=== PATIENT | female | born 1970 | race Caucasian/White ===

== ENCOUNTER 2023-10-31 08:35 | Emergency (ER) | payer MEDICAID, SELFPAY ==
[2023-10-31 08:39] VITALS: BP 158/86; PULSE 126; TEMP 36.8; O2SAT 95; BMI 26.5
[2023-10-31 09:00] LABS: Basophils Absolute Auto 0.1 10^3/uL (0.0-0.1); Basophils Percent Auto 1.3 % (0.2-2.0); Eosinophils Absolute Auto 0.2 10^3/uL (0.0-0.7); Eosinophils Percent Auto 2.7 % (0.9-7.0); Hematocrit 42.1 % (36.0-48.0); Hemoglobin 14.1 g/dL (12.0-16.0); Immature Granulocytes Abs Auto 0.03 10^3/uL (0.00-0.03); Immature Granulocytes Pct Auto 0.4 % (0.0-0.5); Lymphocytes Absolute Auto 1.8 10^3/uL (1.2-3.8); Lymphocytes Percent Auto 24.1 % (20.5-60.0); Mean Corpuscular HGB Conc 33.5 g/dL (29.9-35.2); Mean Corpuscular Volume 101.4 fL (81.0-99.0); Mean Platelet Volume 10.6 fL (9.5-13.5); Monocytes Percent Auto 13.4 % (1.7-12.0); Neutrophils Absolute Auto 4.4 10^3/uL (1.4-6.5); Neutrophils Percent Auto 58.1 % (43.0-75.0); Platelet Count 329 10^3/uL (150-450); Red Blood Count 4.15 10^6/uL (4.20-5.40); Red Cell Distribution Width 12.9 % (11.0-15.0); White Blood Count 7.5 10^3/uL (4.0-11.0)
[2023-10-31 09:01] LABS: Bilirubin Urine NEGATIVE (NEGATIVE); Blood Urine MODERATE (NEGATIVE); Color Urine LT. YELLOW (YELLOW); Glucose Urine UA NEGATIVE (NEGATIVE); Ketones Urine NEGATIVE (NEGATIVE); Leukocyte Esterase Urine LARGE (NEGATIVE); Nitrite Urine NEGATIVE (NEGATIVE); Protein Urine 30 mg/dL (NEG/TRACE); Specific Gravity Urine >=1.030 (1.005-1.025); Urobilinogen Urine 0.2 EU/dL (0.2-1.0)
[2023-10-31 09:02] LABS: Clarity Urine CLOUDY (CLEAR)
[2023-10-31 09:03] LABS: Urine Microscopic Indicated YES
[2023-10-31 09:08] LABS: WBC Urine >100 #/HPF (NONE SEEN)
[2023-10-31 09:09] LABS: Bacteria Urine MODERATE #/HPF (NONE SEEN); Mucus Urine NONE SEEN (NONE SEEN); Squamous Epithelial Cell Urine FEW #/LPF (NONE/RARE)
[2023-10-31 09:10] LABS: Urine Culture Indicated YES
[2023-10-31 09:19] LABS: Alanine Aminotransferase 38 U/L (14-59); Albumin Level 3.9 g/dL (3.4-5.0); Alkaline Phosphatase 124 U/L (46-116); Anion Gap 15.4; Aspartate Amino Transferase 26 U/L (15-37); Bilirubin Total 0.5 mg/dL (0.2-1.0); Carbon Dioxide 25.5 mmol/L (21.0-32.0); Chloride 104 mmol/L (98-107); Estimated GFR (African America >60 (>=60); Estimated GFR (Non-African Ame >60 (>=60); Globulin 3.8 g/dL; Glucose 100 mg/dL (74-106); Potassium 3.9 mmol/L (3.5-5.1); Sodium 141 mmol/L (136-145); Total Protein 7.7 g/dL (6.4-8.2)
--- NOTE | 2023-10-31 09:25 | ED.ABDPAIN1 ---
HPI - Abdominal Pain General Chief Complaint: Abdominal Pain Stated Complaint: PELVIC PAIN/BACK PAIN Time Seen by Provider: 10/31/23 09:16 Source: patient Mode of arrival: walk-in Limitations: no limitations History of Present Illness HPI narrative: This patient is here complaining of abdominal pain and severe dysuria. She says she is now on her second antibiotic, the second 1 that she is taking currently is ciprofloxacin. She does not remember the name of the first 1. She said the family practice clinic in [place] diagnosed her as having a urinary tract infection. She does not know the results of her culture. She was placed on Pyridium and did have some temporary relief of the severe discomfort with urinating but now its back. She also has some back and flank pain. She has not had rigors she has not had vomiting. She has not had previous kidney stones or pyelonephritis. She said this is really the first time that she has had a urinary infection in quite some time and it just is not getting any better. She has not had an appendectomy. Most the discomfort is in the suprapubic area. She gets yearly gynecological exams and has no history of cystocele or rectocele but she says now it feels like her bladder may be falling out because she can feel it move. She has had 5 children. Related Data Home Medications ?Medication ?Instructions ?Recorded ?Confirmed aripiprazole 5 mg tablet 5 mg PO DAILY 10/31/23 10/31/23 buspirone 30 mg tablet 30 mg PO BID 10/31/23 10/31/23 cyanocobalamin (vitamin B-12) 500 500 mcg PO DAILY 10/31/23 10/31/23 mcg tablet fluticasone propionate 50 1 spray intranasal Q12H 10/31/23 10/31/23 mcg/actuation nasal spray,suspension hydroxyzine pamoate 50 mg capsule 50 mg PO BID 10/31/23 10/31/23 Allergies Allergy/AdvReac Type Severity Reaction Status Date / Time sulfamethoxazole Allergy Severe Hives Verified 10/31/23 08:47 [From Bactrim] trimethoprim [From Bactrim] Allergy Severe Hives Verified 10/31/23 08:47 Exam Narrative Exam Narrative: Well-hydrated well-nourished female appears to be uncomfortable. Examining her back she has a negative Dav sign. There is no other skin findings noted on her back area. In the lying position there is no peritoneal findings guarding rebound or rigidity. No tenderness at McBurney's point. She does have some discomfort palpation over the bladder but is not distended. There is no hepatosplenomegaly. The skin and integument are normal with no petechia purpura rash or exanthem. Constitutional Vital Signs, click to edit/add: Last Vital Signs Temp 98.2 F 10/31/23 08:39 Pulse 73 10/31/23 10:04 Resp 18 10/31/23 10:04 BP 102/64 10/31/23 10:04 Pulse Ox 98 10/31/23 10:04 O2 Del Method Room Air 10/31/23 10:04 Course Vital Signs Vital signs: Vital Signs Temperature 98.2 F 10/31/23 08:39 Pulse Rate 126 H 10/31/23 08:39 Respiratory Rate 20 10/31/23 08:39 Blood Pressure 158/86 H 10/31/23 08:39 Pulse Oximetry 95 10/31/23 08:39 Oxygen Delivery Method Room Air 10/31/23 08:39 Temperature 98.2 F 10/31/23 08:39 Pulse Rate 73 10/31/23 10:04 Respiratory Rate 18 10/31/23 10:04 Blood Pressure 102/64 10/31/23 10:04 Pulse Oximetry 98 10/31/23 10:04 Oxygen Delivery Method Room Air 10/31/23 10:04 MDM - Abdominal Pain MDM Narrative Medical decision making narrative: I was able to secure culture and sensitivity from her urinalysis done on 10/16/2023. The culture identified greater than 100,000 E. coli. She was resistant to ciprofloxacin, cefazolin ampicillin and levofloxacin. She was sensitive to Macrobid. Again this was a culture done on 516. She does not have a history of frequent UTIs so it somewhat unusual to have this type of resistance. We will start her on Macrobid. We did a catheterized urine specimen here and we will also do a culture. She will be placed back on Pyridium. Because the complexity of the situation I did a CT scan that did not show any acute abnormalities but she did have some inflammatory changes of her bladder. She does not have any indication of pyelonephritis. Incidentally we will refer to [facility] for complete gynecological exam to rule out any cystocele. Lab Data Labs: Lab Results 10/31/23 10/31/23 10/31/23 Range/Units 08:47 08:55 09:30 WBC 7.5 (4.0-11.0) 10^3/uL RBC 4.15 L (4.20-5.40) 10^6/uL Hgb 14.1 (12.0-16.0) g/dL Hct 42.1 (36.0-48.0) % MCV 101.4 H (81.0-99.0) fL MCH 34.0 (26.7-34.0) pg MCHC 33.5 (29.9-35.2) g/dL RDW 12.9 (11.0-15.0) % Plt Count 329 (150-450) 10^3/uL MPV 10.6 (9.5-13.5) fL Neut % (Auto) 58.1 (43.0-75.0) % Lymph % (Auto) 24.1 (20.5-60.0) % [place] % (Auto) 13.4 H (1.7-12.0) % Eos % (Auto) 2.7 (0.9-7.0) % Baso % (Auto) 1.3 (0.2-2.0) % Neut # (Auto) 4.4 (1.4-6.5) 10^3/uL Lymph # (Auto) 1.8 (1.2-3.8) 10^3/uL [place] # (Auto) 1.0 H (0.3-0.8) 10^3/uL Eos # (Auto) 0.2 (0.0-0.7) 10^3/uL Baso # (Auto) 0.1 (0.0-0.1) 10^3/uL Abs Immat Gran (auto) 0.03 (0.00-0.03) 10^3/uL Imm/Tot Granulo (auto) 0.4 (0.0-0.5) % Sodium 141 (136-145) mmol/L Potassium 3.9 (3.5-5.1) mmol/L Chloride 104 (98-107) mmol/L Carbon Dioxide 25.5 (21.0-32.0) mmol/L Anion Gap 15.4 BUN 12.0 (7.0-18.0) mg/dL Creatinine 0.86 (0.55-1.02) mg/dL Est GFR ( Amer) >60 (>=60) Est GFR (Non-Af Amer) >60 (>=60) BUN/Creatinine Ratio 14.0 Glucose 100 (74-106) mg/dL Calcium 9.0 (8.5-10.1) mg/dL Total Bilirubin 0.5 (0.2-1.0) mg/dL AST 26 (15-37) U/L ALT 38 (14-59) U/L Alkaline Phosphatase 124 H (46-116) U/L Total Protein 7.7 (6.4-8.2) g/dL Albumin 3.9 (3.4-5.0) g/dL Globulin 3.8 g/dL Albumin/Globulin Ratio 1.0 Lipase 45.0 (16.0-77.0) U/L Urine Color Lt. yellow Lt. yellow (YELLOW) Urine Clarity Cloudy A Clear (CLEAR) Urine pH 6.0 6.0 (5.0-9.0) Ur Specific [place] >=1.030 A >=1.030 A (1.005-1.025) Urine Protein 30 A 30 A (NEG/TRACE) mg/dL Urine Glucose (UA) Negative Negative (NEGATIVE) mg/dL Urine Ketones Negative Negative (NEGATIVE) mg/dL Urine Occult Blood Moderate A Moderate A (NEGATIVE) Urine Nitrite Negative Negative (NEGATIVE) Urine Bilirubin Negative Negative (NEGATIVE) Urine Urobilinogen 0.2 0.2 (0.2-1.0) EU/dL Ur Leukocyte Esterase Large A Moderate A (NEGATIVE) Urine RBC 10-20 A (0-2) #/HPF Urine WBC >100 A (NONE SEEN) #/HPF Ur Squamous Epith Cells Few A (NONE/RARE) #/LPF Urine Crystals Not Reportable Urine Bacteria Moderate A (NONE SEEN) #/HPF Urine Casts Not Reportable Urine Mucus None seen (NONE SEEN) Ur Culture Indicated? Yes Discharge Plan Discharge Stand Alone Forms: Portal Instructions Chief Complaint: Abdominal Pain Clinical Impression: UTI (urinary tract infection) Patient Disposition: Home, Self-Care Time of Disposition Decision: 11:07 Prescriptions / Home Meds: No Action aripiprazole 5 mg tablet 5 mg PO DAILY buspirone 30 mg tablet 30 mg PO BID cyanocobalamin (vitamin B-12) 500 mcg tablet 500 mcg PO DAILY fluticasone propionate 50 mcg/actuation spray,suspension 1 spray INTRANASAL Q12H hydroxyzine pamoate 50 mg capsule 50 mg PO BID Print Language: Italian Additional Instructions: Pyridium/Macrobid, drink extra fluids. Follow-up with Dr. Robles for complete pelvic examination Referrals: [facility] [Primary Care Provider] - 1 week
--- NOTE | 2023-10-31 09:29 | CT_ITS ---
[address] [address] Patient Name: MIRTA HITCHCOCK MRN: [id number] date: 1970 Sex: F Assigned Patient Location: ER Current Patient Location: Accession/Order Number: [id number] Exam Date: 10/31/2023 09:45 Report Date: 10/31/2023 10:44 At the request of: JOSE GARCÍA Procedure: CT abdomen pelvis w con EXAMINATION: CT abdomen pelvis w con HISTORY: Lower abdominal pain/refractory cystitis , low back pain COMPARISON: No relevant comparison available. TECHNIQUE: Axial, Coronal, and Sagittal images were obtained without and/or with IV contrast as indicated by examination type. Dose reduction techniques were achieved by using automated exposure control and/or adjustment of mA and/or kV according to patient size and/or use of iterative reconstruction technique. FINDINGS: LUNG BASES: No visible pulmonary or pleural disease. LIVER: No enlargement, atrophy, suspicious density, or significant focal lesion. BILIARY: No dilatation or calcification. PANCREAS: No lesion, fluid collection, or abnormal duct dilatation. SPLEEN: No enlargement or focal lesion. ADRENALS: No mass or enlargement. 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 No mass, obstruction, or calcification. BOWEL/MESENTERY: Mild diverticulosis of distal colon without acute inflammatory changes. No visible mass, obstruction, or bowel wall thickening. AORTA/VASCULAR: No aneurysm or dissection. RETROPERITONEUM: No mass or adenopathy. LYMPH NODES: No adenopathy. URINARY BLADDER: Nearly completely empty which limits evaluation. Mild wall thickening of bladder with slight irregularity and increased enhancement favoring inflammatory process rather than thickening due to lack of distention. PELVIC ORGANS: Enlarged periuterine pelvic vessels bilaterally. No visible mass. Pelvic organs appropriate for patient age. ABDOMINAL WALL: No mass or hernia. BONES: No bony lesion or fracture. OTHER: Negative. CT/CT abdomen pelvis w con IMPRESSION: 1. Suspect mild cystitis. Empty bladder at time of imaging limits evaluation. 2. Unremarkable kidneys and ureters. 3. 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 4. Mild colonic diverticulosis. Electronically authenticated by: TROY BRANDON Date: 10/31/2023 10:44
[2023-10-31 10:00] LABS: Bilirubin Urine NEGATIVE (NEGATIVE); Blood Urine MODERATE (NEGATIVE); Clarity Urine CLEAR (CLEAR); Color Urine LT. YELLOW (YELLOW); Glucose Urine UA NEGATIVE (NEGATIVE); Ketones Urine NEGATIVE (NEGATIVE); Leukocyte Esterase Urine MODERATE (NEGATIVE); Nitrite Urine NEGATIVE (NEGATIVE); Protein Urine 30 mg/dL (NEG/TRACE); Specific Gravity Urine >=1.030 (1.005-1.025); Urobilinogen Urine 0.2 EU/dL (0.2-1.0)
[2023-10-31 10:04] VITALS: BP 102/64; PULSE 73; O2SAT 98
[2023-10-31] MEDS: PHENAZOPYRIDINE 100 MG TABLET PO (11:17)
[2023-10-31] MEDS: NITROFURANTOIN MONOHYD/MAC-CRST 100 MG CAPSULE PO (11:17)
== END 2023-10-31 11:31 | disposition home or self-care (01) ==
PROVIDERS: Emergency Provider Emergency Medicine Emergency Medical Services
DX: N39.0 Urinary tract infection, site not specified (principal)
CPT/HCPCS: 36415; 74177; 80048; 80053; 81001; 81003; 83690; 85025; 87086; 87150; 87186; 99285; Q9967

== ENCOUNTER 2024-03-22 17:27 | Emergency (ER) | payer MEDICAID, SELFPAY ==
[2024-03-22] VITALS (31 sets, daily range): BP systolic 123; BP diastolic 73; PULSE 52–84; TEMP 36.8; O2SAT 91–98; BMI 25.1
--- NOTE | 2024-03-22 17:49 | ECG_ITS ---
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
--- NOTE | 2024-03-22 17:58 | ED_ITS ---
Documented by User: ILDA Chou 03/22/24 21:38 HPI - Abdominal Pain General Chief Complaint: Abdominal Pain Stated Complaint: Abdominal Pain Time Seen by Provider: 03/22/24 17:43 Source: patient and family Mode of arrival: walk-in Limitations: no limitations History of Present Illness HPI narrative: Patient is a 53-year-old female who presents to the emergency department for a 15-minute history of pain in the epigastrium. She states she came immediately to the emergency department because the pain would not ease up although the pain has eased up on arrival to the emergency department. She reports she still has some residual epigastric discomfort. No fevers or vomiting. No upper respiratory symptoms. No medications taken prior to arrival. She denies previous abdominal surgeries. She is currently taking an antibiotic for urinary tract infection. No flank or back pain. Related Data Home Medications ?Medication ?Instructions ?Recorded ?Confirmed aripiprazole 5 mg tablet 5 mg PO .QHS 10/31/23 03/22/24 buspirone 30 mg tablet 30 mg PO BID 10/31/23 03/22/24 cyanocobalamin (vitamin B-12) 500 500 mcg PO DAILY 10/31/23 03/22/24 mcg tablet fluticasone propionate 50 1 spray intranasal Q12H 10/31/23 03/22/24 mcg/actuation nasal spray,suspension hydroxyzine pamoate 50 mg capsule 50 mg PO BID 10/31/23 03/22/24 baclofen 20 mg tablet 20 mg PO DAILY PRN pain 03/22/24 03/22/24 estradiol 0.01% (0.1 mg/gram) 1 g vaginal DAILY 03/22/24 03/22/24 vaginal cream ibuprofen 800 mg tablet 800 mg PO Q8H PRN fever or pain 03/22/24 03/22/24 lamotrigine 100 mg tablet 100 mg PO DAILY 03/22/24 03/22/24 lisinopril 5 mg tablet 5 mg PO DAILY 03/22/24 03/22/24 meloxicam 15 mg tablet 15 mg PO DAILY 03/22/24 03/22/24 montelukast 10 mg tablet 10 mg PO DAILY 03/22/24 03/22/24 nitrofurantoin 100 mg PO BID 03/22/24 03/22/24 monohydrate/macrocrystals 100 mg capsule phenazopyridine 200 mg tablet 200 mg PO Q8H PRN pain 03/22/24 03/22/24 prazosin 2 mg capsule 2 mg PO .qhs 03/22/24 03/22/24 trazodone 150 mg tablet 150 mg PO .QHS PRN insomnia 03/22/24 03/22/24 Previous Rx's ?Medication ?Instructions ?Recorded acetaminophen 300 mg-codeine 30 mg 1 tab PO Q6H PRN pain 5 days #20 03/22/24 tablet tabs Allergies Allergy/AdvReac Type Severity Reaction Status Date / Time sulfamethoxazole (From Allergy Severe Hives Verified 10/31/23 08:47 Bactrim) trimethoprim (From Bactrim) Allergy Severe Hives Verified 10/31/23 08:47 Review of Systems ROS Constitutional Denies: fever or chills Ears, nose, mouth, and throat Denies: throat pain or nasal congestion Cardiovascular Denies: chest pain Respiratory Denies: shortness of breath Gastrointestinal Reports: abdominal pain; Denies: nausea, vomiting or diarrhea Genitourinary Denies: painful urination Musculoskeletal Denies: back pain or neck pain Integumentary/Breast Denies: rash Neurological Denies: numbness in extremities or weakness in extremities Hematologic/Lymphatic Denies: easy bruising or easy bleeding PFSH PFSH Social History Little interest or pleasure in doing things: not at all Feeling down, depressed, or hopeless: not at all Exam Narrative Exam Narrative: Gen.: Awake, alert, in no distress Head: Normocephalic, atraumatic ENT: Moist mucous membranes Respiratory: No respiratory distress, lungs clear bilaterally Cardio: Regular rate and rhythm Gastrointestinal: Abdomen is soft, nondistended and mildly tender to palpation in the epigastrium. No guarding or rebound. No point tenderness in the right upper quadrant. No pain out of proportion on exam Extremities: Moves extremities equally, no injuries noted Psych: Normal mood and affect Neuro: No focal neuro deficit Skin: Warm, dry, intact Constitutional Vital Signs, click to edit/add: Last Vital Signs Temp 98.3 F 03/22/24 17:41 Pulse 66 03/22/24 20:30 Resp 15 03/22/24 20:30 BP 123/73 03/22/24 17:41 Pulse Ox 96 03/22/24 20:30 O2 Del Method Room Air 03/22/24 17:41 Course Vital Signs Vital signs: Vital Signs Temperature 98.3 F 03/22/24 17:41 Pulse Rate 83 03/22/24 17:41 Respiratory Rate 18 03/22/24 17:41 Blood Pressure 123/73 03/22/24 17:41 Pulse Oximetry 98 03/22/24 17:41 Oxygen Delivery Method Room Air 03/22/24 17:41 Temperature 98.3 F 03/22/24 17:41 Pulse Rate 66 03/22/24 20:30 Respiratory Rate 15 03/22/24 20:30 Blood Pressure 123/73 03/22/24 17:41 Pulse Oximetry 96 03/22/24 20:30 Oxygen Delivery Method Room Air 03/22/24 17:41 MDM - Abdominal Pain MDM Narrative Medical decision making narrative: 2025: Patient was treated with morphine, Protonix, Zofran. She had no episodes of emesis in the ER. Pain was initially very well-controlled, however she did have a return of pain after imaging. Lab studies show mildly elevated alk phos with no other acute significant abnormalities on lab studies. CT shows early acute cholecystitis. Discussed with Dr. Fuentes for general surgery, he recommended a right upper quadrant ultrasound to further evaluate these findings. Patient remedicated for pain and given IV Zosyn anticipating acute cholecystitis findings. 2134: Ultrasound results are pending, case is turned over to attending physician at this time for disposition. SHARED APC VISIT, PHYSICIAN ATTESTATION: [id number] I performed a substantive part of the MDM during the patient?s E/M visit. I personally evaluated and examined the patient. I personally made or approved the documented management plan and acknowledge its risk of complications. Medical Records Attestation: I reviewed the patient's medical records. Lab Data Attestation: I reviewed the patient's lab results. Labs: Lab Results 03/22/24 03/22/24 03/22/24 Range/Units 18:13 19:03 22:30 WBC 12.1 H (4.0-11.0) 10^3/uL RBC 4.12 L (4.20-5.40) 10^6/uL Hgb 13.7 (12.0-16.0) g/dL Hct 41.1 (36.0-48.0) % MCV 99.8 H (81.0-99.0) fL MCH 33.3 (26.7-34.0) pg MCHC 33.3 (29.9-35.2) g/dL RDW 13.3 (11.0-15.0) % Plt Count 276 (150-450) 10^3/uL MPV 10.6 (9.5-13.5) fL Neut % (Auto) 60.8 (43.0-75.0) % Lymph % (Auto) 23.1 (20.5-60.0) % [place] % (Auto) 9.2 (1.7-12.0) % Eos % (Auto) 5.5 (0.9-7.0) % Baso % (Auto) 1.0 (0.2-2.0) % Neut # (Auto) 7.4 H (1.4-6.5) 10^3/uL Lymph # (Auto) 2.8 (1.2-3.8) 10^3/uL [place] # (Auto) 1.1 H (0.3-0.8) 10^3/uL Eos # (Auto) 0.7 (0.0-0.7) 10^3/uL Baso # (Auto) 0.1 (0.0-0.1) 10^3/uL Abs Immat Gran (auto) 0.05 H (0.00-0.03) 10^3/uL Imm/Tot Granulo (auto) 0.4 (0.0-0.5) % Sodium 142 (136-145) mmol/L Potassium 3.8 (3.5-5.1) mmol/L Chloride 106 (98-107) mmol/L Carbon Dioxide 23.6 (21.0-32.0) mmol/L Anion Gap 16.2 BUN 14.0 (7.0-18.0) mg/dL Creatinine 0.82 (0.55-1.02) mg/dL Est GFR ( Amer) >60 (>=60 mL/min/1.73m^2) Est GFR (Non-Af Amer) >60 (>=60 mL/min/1.73m^2) BUN/Creatinine Ratio 17.1 Glucose 111 H (74-106) mg/dL Lactate 2.1 H 1.4 (0.4-2.0) mmol/L Calcium 10.0 (8.5-10.1) mg/dL Total Bilirubin 0.3 (0.2-1.0) mg/dL AST 25 (15-37) U/L ALT 34 (14-59) U/L Alkaline Phosphatase 132 H (46-116) U/L Troponin I High Sens <4.0 L (4.0-51.3) pg/mL NT-Pro-B Natriuret Pep 63.0 (<=900.0) pg/mL Total Protein 7.3 (6.4-8.2) g/dL Albumin 3.7 (3.4-5.0) g/dL Globulin 3.6 g/dL Albumin/Globulin Ratio 1.0 Lipase 56.0 (16.0-77.0) U/L Urine Color Yellow (YELLOW) Urine Clarity Clear (CLEAR) Urine pH 6.0 (5.0-9.0) Ur Specific [place] 1.020 (1.005-1.025) Urine Protein Negative (NEG/TRACE) mg/dL Urine Glucose (UA) Negative (NEGATIVE) mg/dL Urine Ketones Negative (NEGATIVE) mg/dL Urine Occult Blood Negative (NEGATIVE) Urine Nitrite Negative (NEGATIVE) Urine Bilirubin Negative (NEGATIVE) Urine Urobilinogen 0.2 (0.2-1.0) EU/dL Ur Leukocyte Esterase Negative (NEGATIVE) Imaging Data CT scan - abdomen: Attestation: I have reviewed the pertinent imaging results. Radiologist's impression: ITS Impressions Abdomen/Pelvis CT 03/22/24 18:37 IMPRESSION: 1. Findings suggestive of early acute cholecystitis. See discussion above. Correlate with labs. Recommend other imaging either right upper quadrant ultrasound and/or HIDA scan as clinically directed. 2. Redemonstration of pelvic congestion syndrome. 3. Stable mild colonic diverticulosis without acute bowel pathology. 4. Borderline hepatic enlargement and mild hepatic steatosis. Electronically authenticated by: ANU BHATIA Date: 03/22/2024 19:57 Gallbladder ultrasound: Radiologist's impression: ITS Impressions Abdomen/Pelvis CT 03/22/24 18:37 IMPRESSION: 1. Findings suggestive of early acute cholecystitis. See discussion above. Correlate with labs. Recommend other imaging either right upper quadrant ultrasound and/or HIDA scan as clinically directed. 2. Redemonstration of pelvic congestion syndrome. 3. Stable mild colonic diverticulosis without acute bowel pathology. 4. Borderline hepatic enlargement and mild hepatic steatosis. Electronically authenticated by: ANU BHATIA Date: 03/22/2024 19:57 ECG Data Attestation: I personally reviewed and interpreted this ECG as follows: (Normal sinus rhythm at a rate of 81, no acute ST elevation or ectopy. EKG reviewed by attending physician) Discharge Plan Discharge Chief Complaint: Abdominal Pain Clinical Impression: Cholelithiasis Patient Disposition: Home, Self-Care Time of Disposition Decision: 23:37 Condition: Good Mode of Transportation: Private Vehicle Prescriptions / Home Meds: New acetaminophen-codeine 300-30 mg tablet 1 tab PO Q6H PRN (Reason: pain) 5 Days Qty: 20 0RF No Action aripiprazole 5 mg tablet 5 mg PO .QHS buspirone 30 mg tablet 30 mg PO BID cyanocobalamin (vitamin B-12) 500 mcg tablet 500 mcg PO DAILY fluticasone propionate 50 mcg/actuation spray,suspension 1 spray INTRANASAL Q12H hydroxyzine pamoate 50 mg capsule 50 mg PO BID lisinopril 5 mg tablet 5 mg PO DAILY lamotrigine 100 mg tablet 100 mg PO DAILY baclofen 20 mg tablet 20 mg PO DAILY PRN (Reason: pain) ibuprofen 800 mg tablet 800 mg PO Q8H PRN (Reason: fever or pain) meloxicam 15 mg tablet 15 mg PO DAILY nitrofurantoin monohyd/m-cryst 100 mg capsule 100 mg PO BID phenazopyridine 200 mg tablet 200 mg PO Q8H PRN (Reason: pain) prazosin 2 mg capsule 2 mg PO .qhs trazodone 150 mg tablet 150 mg PO .QHS PRN (Reason: insomnia) montelukast 10 mg tablet 10 mg PO DAILY estradiol 0.01 % (0.1 mg/gram) cream 1 g VAGINAL DAILY Print Language: Azeri Instructions: Gallstones (ED) Referrals: [facility] [Primary Care Provider] - 1 week Jose Eduardo Fuentes DO [Physician] - 1 week Documented by User: Moises Carter MD 03/22/24 23:41 HPI - Abdominal Pain General Chief Complaint: Abdominal Pain Stated Complaint: Abdominal Pain Time Seen by Provider: 03/22/24 17:43 Related Data Home Medications ?Medication ?Instructions ?Recorded ?Confirmed aripiprazole 5 mg tablet 5 mg PO .QHS 10/31/23 03/22/24 buspirone 30 mg tablet 30 mg PO BID 10/31/23 03/22/24 cyanocobalamin (vitamin B-12) 500 500 mcg PO DAILY 10/31/23 03/22/24 mcg tablet fluticasone propionate 50 1 spray intranasal Q12H 10/31/23 03/22/24 mcg/actuation nasal spray,suspension hydroxyzine pamoate 50 mg capsule 50 mg PO BID 10/31/23 03/22/24 baclofen 20 mg tablet 20 mg PO DAILY PRN pain 03/22/24 03/22/24 estradiol 0.01% (0.1 mg/gram) 1 g vaginal DAILY 03/22/24 03/22/24 vaginal cream ibuprofen 800 mg tablet 800 mg PO Q8H PRN fever or pain 03/22/24 03/22/24 lamotrigine 100 mg tablet 100 mg PO DAILY 03/22/24 03/22/24 lisinopril 5 mg tablet 5 mg PO DAILY 03/22/24 03/22/24 meloxicam 15 mg tablet 15 mg PO DAILY 03/22/24 03/22/24 montelukast 10 mg tablet 10 mg PO DAILY 03/22/24 03/22/24 nitrofurantoin 100 mg PO BID 03/22/24 03/22/24 monohydrate/macrocrystals 100 mg capsule phenazopyridine 200 mg tablet 200 mg PO Q8H PRN pain 03/22/24 03/22/24 prazosin 2 mg capsule 2 mg PO .qhs 03/22/24 03/22/24 trazodone 150 mg tablet 150 mg PO .QHS PRN insomnia 03/22/24 03/22/24 Previous Rx's ?Medication ?Instructions ?Recorded acetaminophen 300 mg-codeine 30 mg 1 tab PO Q6H PRN pain 5 days #20 03/22/24 tablet tabs Allergies Allergy/AdvReac Type Severity Reaction Status Date / Time sulfamethoxazole (From Allergy Severe Hives Verified 10/31/23 08:47 Bactrim) trimethoprim (From Bactrim) Allergy Severe Hives Verified 10/31/23 08:47 PFSH PFSH Social History Little interest or pleasure in doing things: not at all Feeling down, depressed, or hopeless: not at all Exam Constitutional Vital Signs, click to edit/add: Last Vital Signs Temp 98.3 F 03/22/24 17:41 Pulse 66 03/22/24 20:30 Resp 15 03/22/24 20:30 BP 123/73 03/22/24 17:41 Pulse Ox 96 03/22/24 20:30 O2 Del Method Room Air 03/22/24 17:41 Course Vital Signs Vital signs: Vital Signs Temperature 98.3 F 03/22/24 17:41 Pulse Rate 83 03/22/24 17:41 Respiratory Rate 18 03/22/24 17:41 Blood Pressure 123/73 03/22/24 17:41 Pulse Oximetry 98 03/22/24 17:41 Oxygen Delivery Method Room Air 03/22/24 17:41 Temperature 98.3 F 03/22/24 17:41 Pulse Rate 66 03/22/24 20:30 Respiratory Rate 15 03/22/24 20:30 Blood Pressure 123/73 03/22/24 17:41 Pulse Oximetry 96 03/22/24 20:30 Oxygen Delivery Method Room Air 03/22/24 17:41 MDM - Abdominal Pain MDM Narrative Medical decision making narrative: 2025: Patient was treated with morphine, Protonix, Zofran. She had no episodes of emesis in the ER. Pain was initially very well-controlled, however she did have a return of pain after imaging. Lab studies show mildly elevated alk phos with no other acute significant abnormalities on lab studies. CT shows early acute cholecystitis. Discussed with Dr. Fuentes for general surgery, he recommended a right upper quadrant ultrasound to further evaluate these findings. Patient remedicated for pain and given IV Zosyn anticipating acute cholecystitis findings. 2134: Ultrasound results are pending, case is turned over to attending physician at this time for disposition. SHARED APC VISIT, PHYSICIAN ATTESTATION: [id number] I performed a substantive part of the MDM during the patient?s E/M visit. I personally evaluated and examined the patient. I personally made or approved the documented management plan and acknowledge its risk of complications. KINZA 11:40pm gallbladder ultrasound is resulted and shows no evidence of acute cholecystitis. Gallstones are noted but no gallbladder wall thickening or pericholecystic fluid. She will be discharged home and will follow-up with general surgeon as an outpatient and was provided pain medication. Findings are discussed with the patient and her family Differential Diagnosis Differential diagnosis: Likely abdominal pain, constipation, pancreatitis and other (Gallstones, acute cholecystitis) Lab Data Labs: Lab Results 03/22/24 03/22/24 03/22/24 Range/Units 18:13 19:03 22:30 WBC 12.1 H (4.0-11.0) 10^3/uL RBC 4.12 L (4.20-5.40) 10^6/uL Hgb 13.7 (12.0-16.0) g/dL Hct 41.1 (36.0-48.0) % MCV 99.8 H (81.0-99.0) fL MCH 33.3 (26.7-34.0) pg MCHC 33.3 (29.9-35.2) g/dL RDW 13.3 (11.0-15.0) % Plt Count 276 (150-450) 10^3/uL MPV 10.6 (9.5-13.5) fL Neut % (Auto) 60.8 (43.0-75.0) % Lymph % (Auto) 23.1 (20.5-60.0) % [place] % (Auto) 9.2 (1.7-12.0) % Eos % (Auto) 5.5 (0.9-7.0) % Baso % (Auto) 1.0 (0.2-2.0) % Neut # (Auto) 7.4 H (1.4-6.5) 10^3/uL Lymph # (Auto) 2.8 (1.2-3.8) 10^3/uL [place] # (Auto) 1.1 H (0.3-0.8) 10^3/uL Eos # (Auto) 0.7 (0.0-0.7) 10^3/uL Baso # (Auto) 0.1 (0.0-0.1) 10^3/uL Abs Immat Gran (auto) 0.05 H (0.00-0.03) 10^3/uL Imm/Tot Granulo (auto) 0.4 (0.0-0.5) % Sodium 142 (136-145) mmol/L Potassium 3.8 (3.5-5.1) mmol/L Chloride 106 (98-107) mmol/L Carbon Dioxide 23.6 (21.0-32.0) mmol/L Anion Gap 16.2 BUN 14.0 (7.0-18.0) mg/dL Creatinine 0.82 (0.55-1.02) mg/dL Est GFR ( Amer) >60 (>=60 mL/min/1.73m^2) Est GFR (Non-Af Amer) >60 (>=60 mL/min/1.73m^2) BUN/Creatinine Ratio 17.1 Glucose 111 H (74-106) mg/dL Lactate 2.1 H 1.4 (0.4-2.0) mmol/L Calcium 10.0 (8.5-10.1) mg/dL Total Bilirubin 0.3 (0.2-1.0) mg/dL AST 25 (15-37) U/L ALT 34 (14-59) U/L Alkaline Phosphatase 132 H (46-116) U/L Troponin I High Sens <4.0 L (4.0-51.3) pg/mL NT-Pro-B Natriuret Pep 63.0 (<=900.0) pg/mL Total Protein 7.3 (6.4-8.2) g/dL Albumin 3.7 (3.4-5.0) g/dL Globulin 3.6 g/dL Albumin/Globulin Ratio 1.0 Lipase 56.0 (16.0-77.0) U/L Urine Color Yellow (YELLOW) Urine Clarity Clear (CLEAR) Urine pH 6.0 (5.0-9.0) Ur Specific [place] 1.020 (1.005-1.025) Urine Protein Negative (NEG/TRACE) mg/dL Urine Glucose (UA) Negative (NEGATIVE) mg/dL Urine Ketones Negative (NEGATIVE) mg/dL Urine Occult Blood Negative (NEGATIVE) Urine Nitrite Negative (NEGATIVE) Urine Bilirubin Negative (NEGATIVE) Urine Urobilinogen 0.2 (0.2-1.0) EU/dL Ur Leukocyte Esterase Negative (NEGATIVE) Imaging Data CT scan - abdomen: Radiologist's impression: ITS Impressions Abdomen/Pelvis CT 03/22/24 18:37 IMPRESSION: 1. Findings suggestive of early acute cholecystitis. See discussion above. Correlate with labs. Recommend other imaging either right upper quadrant ultrasound and/or HIDA scan as clinically directed. 2. Redemonstration of pelvic congestion syndrome. 3. Stable mild colonic diverticulosis without acute bowel pathology. 4. Borderline hepatic enlargement and mild hepatic steatosis. Electronically authenticated by: ANU BHATIA Date: 03/22/2024 19:57 Gallbladder ultrasound: Radiologist's impression: ITS Impressions Abdomen/Pelvis CT 03/22/24 18:37 IMPRESSION: 1. Findings suggestive of early acute cholecystitis. See discussion above. Correlate with labs. Recommend other imaging either right upper quadrant ultrasound and/or HIDA scan as clinically directed. 2. Redemonstration of pelvic congestion syndrome. 3. Stable mild colonic diverticulosis without acute bowel pathology. 4. Borderline hepatic enlargement and mild hepatic steatosis. Electronically authenticated by: ANU BHATIA Date: 03/22/2024 19:57 Procedure: US right upper quadrant EXAM: US right upper quadrant HISTORY: abdominal pain COMPARISON: CT abdomen/pelvis 03/22/2024 TECHNIQUE: Sonographic examination of the right upper quadrant of the abdomen using grayscale, color Doppler, and spectral waveform analysis. FINDINGS: The liver is normal in contour and echotexture and measures 15.3 cm in greatest dimension. No discrete hepatic mass. No intrahepatic or extrahepatic biliary ductal dilatation. Common duct measures 5 mm in diameter. The portal and hepatic veins demonstrate normal waveforms and direction of flow. The gallbladder demonstrates multiple echogenic foci some of which are antidependent, the largest nonshadowing focus measures up to 8 mm. The gallbladder wall measures up to 3 mm in thickness. Sonographic Stafford's sign is negative. Normal visualized pancreas. Normal echogenicity of the right kidney which measures 9.7 cm in length. No hydronephrosis. Normal color Doppler flow to the right kidney. No free fluid. IMPRESSIONS: Multiple echogenic foci within the gallbladder which may represent a combination of stones and polyps, measuring up to 8 mm. Otherwise no specific evidence of acute cholecystitis. If right upper quadrant symptoms, consider surgical consultation. Electronically authenticated by: TROY STEVENSON Date: 03/22/2024 23:25 Discharge Plan Discharge Chief Complaint: Abdominal Pain Clinical Impression: Cholelithiasis Patient Disposition: Home, Self-Care Time of Disposition Decision: 23:37 Condition: Good Mode of Transportation: Private Vehicle Prescriptions / Home Meds: New acetaminophen-codeine 300-30 mg tablet 1 tab PO Q6H PRN (Reason: pain) 5 Days Qty: 20 0RF No Action aripiprazole 5 mg tablet 5 mg PO .QHS buspirone 30 mg tablet 30 mg PO BID cyanocobalamin (vitamin B-12) 500 mcg tablet 500 mcg PO DAILY fluticasone propionate 50 mcg/actuation spray,suspension 1 spray INTRANASAL Q12H hydroxyzine pamoate 50 mg capsule 50 mg PO BID lisinopril 5 mg tablet 5 mg PO DAILY lamotrigine 100 mg tablet 100 mg PO DAILY baclofen 20 mg tablet 20 mg PO DAILY PRN (Reason: pain) ibuprofen 800 mg tablet 800 mg PO Q8H PRN (Reason: fever or pain) meloxicam 15 mg tablet 15 mg PO DAILY nitrofurantoin monohyd/m-cryst 100 mg capsule 100 mg PO BID phenazopyridine 200 mg tablet 200 mg PO Q8H PRN (Reason: pain) prazosin 2 mg capsule 2 mg PO .qhs trazodone 150 mg tablet 150 mg PO .QHS PRN (Reason: insomnia) montelukast 10 mg tablet 10 mg PO DAILY estradiol 0.01 % (0.1 mg/gram) cream 1 g VAGINAL DAILY Print Language: Azeri Instructions: Gallstones (ED) Referrals: [facility] [Primary Care Provider] - 1 week Jose Eduardo Fuentes DO [Physician] - 1 week
--- OUTSIDE RECORDS SUMMARY | 2024-03-22 18:17 | XMS_ITS | CCD ---
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 Name Role Phone DR HOLLIE SERVIN Consulting Unavailable [facility], [facility] Primary Care Unava ilable ELENA Morin, DR BROWNE Attending Unavailable ELENA Morin, DR BROWNE Admitting Unavailable UNLU, DAYO Consulting Unavailable Anglim CAMP NURSE-BRANCH ASSOCIATE, Pastora A Primary Care Provider HANS GONSALEZ Referring Unavailable ANGLIM, PASTORA A Primary Care Unavailable HANS GONSALEZ Attending Unavailable ANGLIM, PASTORA A Referring Unavailable ANGLIM, PASTORA A Primary Care Unavailable HANS GONSALEZ Attending Unavailable ANGLIM, PASTORA A Referring Unavailable ANGLIM, PASTORA A Primary Care Unavailable RUSHER, VERONICA S Attending Unavailable ANGLIM, PASTORA Referring Unavailable RUSHER, VERONICA S Referring Unavailable RUSHER, VERONICA S Attending Unavailable RUSHER, VERONICA S Attending Unavailable RUSHER, VERONICA S Attending Unavailable RUSHER, VERONICA S Referring Unavailable RUSHER, VERONICA S Attending Unavailable RUSHER, VERONICA S Attending Unavailable RUSHER, VERONICA S Referring Unavailable RUSHER, VERONICA S Attending Unavailable RUSHER, VERONICA S Referring Unavailable VASQUES, BOWEN Olmos Attending Unavailable VASQUESBOWEN Referring Unavailable ANGLIM, PASTORA A Primary Care Unavailable VASQUESBOWEN Admitting Unavailable VASQUES, BOWEN Olmos Attending Unavailable ANGLIM, PASTORA A Referring Unavailable ANGLIM, PASTORA A Primary Care Unavailable ALYCIA KAMARA Attending Unavailable ANGLIM, PASTORA A Primary Care Unavailable RACHEL MCKEON Attending Unavailable ANGLIM, PASTORA A Referring Unavailable ANGLIM, PASTORA A Primary Care Unavailable RACHEL MCKEON Attending Unavailable ANGLIM, PASTORA A Referring Unavailable ANGLIM, PASTORA A Primary Care Unavailable ANGLIM, PASTORA A Referring Unavailable ANGLIM, PASTORA A Primary Care Unavailable KAMINI DUVALL Attending Unavailable KAMINI DUVALL Referring Unavailable ANGLIM, PASTORA A Primary Care Unavailable KAMINI DUVALL Referring Unavailable ANGLIM, PASTORA A Primary Care Unavailable NIENBERG, RACHEL Black Attending Unavailable NIENBERG, RACHEL Black Referring Unavailable ANGLIM, PASTORA A Primary Care Unavailable ANGLIM, PASTORA A Referring Unavailable ANGLIM, PASTORA A Primary Care Unavailable ANGLIM, PASTORA A Referring Unavailable ANGLIM, PASTORA A Primary Care Unavailable RUSHER, VERONICA Black Admitting Unavailable RUSHER, VERONICA Black Attending Unavailable RUSHER, VERONICA Black Referring Unavailable ANGLIM, PASTORA A Primary Care Unavailable RACHELE DENNEY Attending Unavailable ANGLIM, PASTORA A Primary Care Unavailable VASQUESBOWEN Attending Unavailable VASQUES, BOWEN Olmos Referring Unavailable ANGLIM, PASTORA A Primary Care Unavailable VASQUES, BOWEN Olmos Admitting Unavailable VASQUES, BOWEN Olmos Attending Unavailable ANGLIM, PASTORA A Referring Unavailable ANGLIM, PASTORA A Primary Care Unavailable RUSHER, VERONICA Black Attending Unavailable RUSHER, VERONICA S Referring Unavailable ANGLIM, PASTORA A Primary Care Unavailable NIENBERG, RACHEL Black Attending Unavailable ANGLIM, PASTORA A Referring Unavailable ANGLIM, PASTORA A Primary Care Unavailable WALLACEHANS Attending Unavailable WALLACEHANS Referring Unavailable ANGLIM, PASTORA A Primary Care Unavailable NIENBERG, RACHEL Black Attending Unavailable NIENBERG, RACHEL Black Referring Unavailable ANGLIM, PASTORA A Primary Care Unavailable VASQUESBOWEN Admitting Unavailable VASQUES, BOWEN Olmos Attending Unavailable ANGLIM, PASTORA A Referring Unavailable ANGLIM, PASTORA A Primary Care Unavailable NIENBERG, RACHEL Black Referring Unavailable ANGLIM, PASTORA A Primary Care Unavailable NIENBERG, RACHEL lBack Attending Unavailable ANGLIM, PASTORA A Referring Unavailable ANGLIM, PASTORA A Primary Care Unavailable VASQUESBOWEN Admitting Unavailable VASQUES, BOWEN Olmos Attending Unavailable ANGLIM, PASTORA A Referring Unavailable ANGLIM, PASTORA A Primary Care Unavailable VASQUES, BOWEN Olmos Attending Unavailable VASQUESBOWEN Referring Unavailable ANGLIM, PASTORA A Primary Care Unavailable OFELIA MAXWELL Attending Unavail able ANGLIM, PASTORA A Primary Care Unavailable NIENBERG, RACHEL Black Attending Unavailable ANGLIM, PASTORA A Referring Unavailable ANGLIM, PASTORA A Primary Care Unavailable VASQUESBOWEN JIMENES Admitting Unavailable VASQUES, BOWEN Olmos Attending Unavailable ANGLIM, PASTORA A Referring Unavailable ANGLIM, PASTORA A Primary Care Unavailable VASQUESBOWEN Attending Unavailable VASQUESBOWEN Referring Unavailable ZOHAIB, PASTORA A Primary Care Unavailable ADDISON BRANCH Attending Unavailable ZOHAIB, PASTORA A Primary Care Unavailable BOWEN VASQUES Admitting Unavailable BOWEN VASQUES Attending Unavailable BOWEN VASQUES Referring Unavailable ZOHAIB, PASTORA A Primary Care Unavailable BOWEN VASQUES Attending Unavailable BOWEN VASQUES Referring Unavailable ANGLIM, PASTORA A Primary Care Unavailable JOE LAWSON Attending Unavailable ANGLIM, PASTORA A Primary Care Unavailable RACHEL MCKEON Attending Unavailable ANGLIM, PASTORA A Referring Unavailable ANGLIM, PASTORA A Primary Care Unavailable BOWEN VASQUES Attending Unavailable BOWEN VASQUES Referring Unavailable ANGMARSHA, PASTORA A Primary Care Unavailable BOWEN VASQUES Admitting Unavailable BOWEN VASQUES Attending Unavailable ANGLIM, PASTORA A Referring Unavailable ANGLIM, PASTORA A Primary Care Unavailable Allergies Allergy Classification Reported Allergen(s) Allergy Type Date of Onset Reaction(s) Facility Sulfamethoxazole / Trimethoprim (1 source) Sulfamethoxazole / Trimethoprim; Translations: [SULFAMETHOXAZOLE-TR IMETHOPRIM] Drug Allergy 8 [facility] Repository (1 source) Sulfamethoxazole / Trimethoprim Drug Allergy 1 [facility] Repository (4 sources) Sulfamethoxazole / Trimethoprim; Translations: [SULFAMETHOXAZOLE-TR IMETHOPRIM] Drug Allergy 8 [facility] Medications Current Medications Medication Drug Class(es) Dates Sig (Normalized) Sig (Original) [id number] 200 actuat albuterol 0.09 mg/actuat metered dose inhaler (2 sources) beta2-Adrenergic Agonist Start: 05-04-2021 take 2 puff(s) by inhalation every four to six hours for wheezing albuterol (PROVENTIL HFA;VENTOLIN HFA) 90 mcg/actuation inhaler inhale 2 puffs every 4 to 6 hours if needed for shortness of breath and wheezing 0 05/04/2021 Active ARIPiprazole 5 mg oral tablet (2 sources) Atypical Antipsychotic Start: 06-25-2021 take 1 tablet by mouth once daily ARIPiprazole (ABILIFY) 5 mg tablet Take 1 tablet (5 mg total) by mouth nightly. 0 06/25/2021 Active ascorbic acid/zinc/elderberr y (SAMBUCUS ELDERBERRY ORAL) (2 sources) ascorbic acid/zinc/elderberr y (SAMBUCUS ELDERBERRY ORAL) Take by mouth. 0 Active baclofen 10 mg oral tablet (2 sources) gamma-Aminobutyric Acid-ergic Agonist Start: 01-08-2022 take 1 tablet by mouth three times daily baclofen (LIORESAL) 10 mg tablet Take 1 tablet (10 mg total) by mouth 3 (three) times a day. 90 tablet 3 01/08/2022 Active busPIRone hydrochloride 30 mg oral tablet (2 sources) Start: 06-25-2021 take 1 tablet by mouth in the morning busPIRone (BUSPAR) 30 mg tablet Take 30 mg by mouth in the morning and 30 mg before bedtime. 0 06/25/2021 Active citalopram 40 mg oral tablet (2 sources) Serotonin Reuptake Inhibitor take 0.5 tablet by mouth in the morning citalopram (CeleXA) 40 mg tablet Take 0.5 tablets (20 mg total) by mouth in the morning. 0 Active fexofenadine hydrochloride 180 mg oral tablet (2 sources) Histamine-1 Receptor Antagonist Start: 07-23-2019 take 1 tablet by mouth in the morning ALLERGY RELIEF, FEXOFENADINE, 180 mg tablet Take 1 tablet (180 mg total) by mouth in the morning. 0 07/23/2019 Active fluticasone propionate 0.05 mg/actuat metered dose nasal spray (1 source) Corticosteroid take 1 spray(s) nasal route twice daily fluticasone propionate (FLONASE) 50 mcg/actuation nasal spray SPRAY 1 SPRAY INTO EACH NOSTRIL TWICE A DAY FOR 30 DAYS 0 Active guaiFENesin 400 mg oral tablet (2 sources) Start: 05-10-2019 take 1 tablet by mouth every four hours as needed MUCUS RELIEF 400 mg tablet 1 tablet (400 mg total) every 4 (four) hours as needed. 0 05/10/2019 Active hydrOXYzine pamoate 50 mg oral capsule (2 sources) Antihistamine Start: 06-25-2021 take 1 capsule by mouth in the morning, then take 1 capsule by mouth at bedtime hydrOXYzine (VISTARIL) 50 mg capsule Take 1 capsule (50 mg total) by mouth in the morning and 1 capsule (50 mg total) before bedtime. 0 06/25/2021 Active ibuprofen 800 mg oral tablet (1 source) Nonsteroidal Anti-inflammatory Drug take 1 tablet by mouth three times daily as needed ibuprofen (MOTRIN) 800 mg tablet TAKE 1 TABLET BY MOUTH THREE TIMES A DAY NEEDED WITH FOOD OR MILK for 30 0 Active lamoTRIgine 100 mg oral tablet (2 sources) Mood Stabilizer, Anti-epileptic Agent Start: 06-25-2021 take 1 tablet by mouth in the morning lamoTRIgine (LaMICtal) 100 mg tablet Take 1 tablet (100 mg total) by mouth in the morning. 0 06/25/2021 Active lisinopril 5 mg oral tablet (2 sources) Angiotensin Converting Enzyme Inhibitor Start: 02-24-2019 take 1 tablet by mouth once daily lisinopril (PRINIVIL,ZESTRIL) 5 mg tablet take 1 tablet by mouth once daily (NOTE DECREASED DOSE) 0 02/24/2019 Active meclizine hydrochloride 25 mg chewable tablet (2 sources) Antiemetic meclizine (ANTIVERT) 25 mg tablet Chew 1 tablet (25 mg total) and swallow 3 (three) times a day as needed for dizziness. 0 Active montelukast 10 mg oral tablet (2 sources) Leukotriene Receptor Antagonist Start: 05-02-2022 take 1 tablet by mouth in the morning montelukast (SINGULAIR) 10 mg tablet Take 1 tablet (10 mg total) by mouth in the morning. 0 05/02/2022 Active multivitamin (THERAGRAN) tablet (2 sources) Start: 04-15-2022 take 1 tablet by mouth in the morning multivitamin (THERAGRAN) tablet Take 1 tablet by mouth in the morning. 0 04/15/2022 Active dvevofkoihue-Qk-udx n-minerals tablet (1 source) multivitamin-Ca- iro n-minerals tablet TAKE 1 TABLET BY MOUTH EVERY DAY FOR 30 DAYS for 30 0 Active mupirocin 0.02 mg/mg topical ointment (2 sources) RNA Synthetase Inhibitor Antibacterial Start: 09-18-2022 mupirocin (BACTROBAN) 2 % ointment Applied intranasally bilaterally 2 times daily 15 g 0 09/18/2022 Active omega 8-qqb-bjh-fish oil (Fish OiL) 300-1,000 mg capsule (2 sources) take 300-1000 mg by mouth in the morning omega 2-mgb-apo-fish oil (Fish OiL) 300-1,000 mg capsule Take 1 tablet by mouth in the morning. 0 Active omega 5-dvq-awu-fish oil 60-90-500 mg capsule,delayed release(DR/EC) (1 source) take 1 capsule by mouth every eight hours omega 8-dmq-fnp-fish oil 60-90-500 mg capsule,delayed release(DR/EC) 1 capsule every 8 (eight) hours. 0 Active prazosin 1 mg oral capsule (2 sources) alpha-Adrenergic Alecia Start: 06-24-2022 prazosin (MINIPRESS) 1 mg capsule 2 capsules (2 mg total) once daily at bedtime. 0 06/24/2022 Active traZODone hydrochloride 50 mg oral tablet (2 sources) Serotonin Reuptake Inhibitor Start: 07-26-2021 traZODone (DESYREL) 50 mg tablet 3 tablets (150 mg total). 0 07/26/2021 Active turmeric/turmeric ext/pepr ext (turmeric-turmeric ext-pepper) 500-3 mg capsule (1 source) turmeric/turmeri c ext/pepr ext (turmeric-turmeric ext-pepper) 500-3 mg capsule With cumin and seamoss 0 Active vitamin b12 0.5 mg oral tablet (2 sources) Vitamin B12 Start: 12-14-2021 cyanocobalamin 500 MCG tablet 2 tablets (1,000 mcg total). 0 12/14/2021 Active Problems Active Problems Problem Classification Problem Date Documented Date Episodic/Chronic Conditions associated with dizziness or vertigo (1 source) Dizziness and giddiness; Translations: [DIZZINESS AND GIDDINESS] Onset: 08-10-2022 Episodic Essential hypertension (1 source) Essential (primary) hypertension; Translations: [Essential (primary) hypertension] Onset: 09-24-2023 Chronic Genitourinary symptoms and ill-defined conditions (1 source) Stress incontinence (female) (male); Translations: [Stress incontinence (female) (male)] Onset: 11-17-2023 Chronic Headache; including migraine (4 sources) Headache; including migraine; Translations: [HEADACHE UNSPECIFIED] Onset: 08-08-2022 Osteoarthritis (7 sources) Localized, primary osteoarthritis of the wrist; Translations: [Primary osteoarthritis, left wrist] Onset: 04-20-2020 07-17-2023 Chronic Other aftercare (1 source) Other integration analyst (current) drug therapy; Translations: [OTH DETENTION CURRENT DRUG THERAPY] Onset: 08-10-2022 Episodic Other upper respiratory infections (2 sources) Chronic sinusitis; Translations: [Other chronic sinusitis] Onset: 03-11-2022 07-31-2022 Chronic Prolapse of female genital organs (3 sources) Uterovaginal prolapse, unspecified; Translations: [Uterovaginal prolapse, unspecified] Onset: 11-17-2023 Chronic Spondylosis; intervertebral disc disorders; other back problems (10 sources) Lumbar spondylosis; Translations: [Spondylosis without myelopathy or radiculopathy, lumbar region] Onset: 11-12-2017 05-23-2023 Chronic Spondylosis; intervertebral disc disorders; other back problems (7 sources) Disorder of sacrum; Translations: [Sacrococcygeal disorders, not elsewhere classified] Onset: 08-25-2017 06-17-2018 Episodic Substance-related disorders (1 source) Nicotine dependence, cigarettes, uncomplicated; Translations: [Nicotine dependence, cigarettes, uncomplicated] Onset: 10-01-2023 Chronic Unclassified (1 source) Pessary; fitting Onset: 12-02-2023 Unclassified (1 source) Vaginal Prolapse Onset: 11-17-2023 Unclassified (1 source) 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 [M19.032] Onset: 08-08-2023 Past or Other Problems Problem Classification Problem Date Documented Date Episodic/Chronic Mood disorders (2 sources) Mood disorders Onset: 06-27-2021 06-27-2021 Other connective tissue disease (1 source) Pain in right hand; Translations: [Pain in right hand] Onset: 11-13-2023 Episodic Other connective tissue disease (1 source) Hand pain Onset: 08-21-2023 Episodic Other non-traumatic joint disorders (2 sources) Hip pain; Translations: [Pain in left hip] Onset: 01-21-2019 01-14-2023 Episodic Other skin disorders (2 sources) Mass of neck; Translations: [Localized swelling, mass and lump, neck] Onset: 04-23-2021 04-23-2021 Episodic Other upper respiratory disease (2 sources) Deviated nasal septum; Translations: [Deviated nasal septum] Onset: 07-31-2022 07-31-2022 Episodic Other upper respiratory disease (2 sources) Jessica bullosa; Translations: [Other specified disorders of nose and nasal sinuses] Onset: 09-04-2022 09-04-2022 Episodic Residual codes; unclassified (1 source) Other specified postprocedural states; Translations: [Other specified postprocedural states] Onset: 10-09-2023 Episodic Results Test Name Value Interpretation Reference Range Facility US PELVIC WITH TRANSVAGINALo n 11-23-2023 US PELVIC WITH TRANSVAGINAL US PELVIC WITH TRANSVAGINAL PELVIC ULTRASOUND HISTORY: Cystocele with uterine prolapse COMPARISON: 03/09/2018 TECHNIQUE: Transabdominal and transvaginal sonographic evaluation of the pelvis. Transabdominal imaging performed to evaluate for extra adnexal pelvic pathology. Transvaginal imaging performed for better delineation of the adnexal and endometrial contents. FINDINGS: The uterus measures 8.1 x 3.3 x 5.1 cm. The uterus is retroverted on transvaginal imaging. The endometrium measures 0.3 cm. The right ovary measures 2.9 x 1.2 x 1.9 cm and the left ovary measures 3.2 x 2.2 x 2.2 cm. The ovaries are unremarkable. No free fluid in the pelvis. IMPRESSION: Unremarkable pelvic ultrasound. Finalized by Simeon Johnson MD on 11/23/2023 7:04 AM [facility] US RETROPERITONEAL COMPLETEo n 11-23-2023 US RETROPERITONEAL COMPLETE US RETROPERITONEAL COMPLETE HISTORY: A 52-year-old female with the history of the cystocele with uterine prolapse. TECHNIQUE: Multiple real-time images of both kidneys and the urinary bladder are obtained. Color Doppler study is performed. COMPARISON: Comparison is made with the prior CT scan of the abdomen and pelvis of 02/11/2019. FINDINGS: Both kidneys are normal in position and configuration. Right kidney measures 10.3 x 5.0 x 4.1 cm. Left kidney measures 10.5 x 5.2 x 4.0 cm. There is no evidence of echogenic calculi or hydronephrosis in the either kidney. Renal cortical echoes are within normal limits. No cystic or solid renal mass is identified. Prevoid urinary bladder volume measures 265 mL. Bilateral ureteric jets are visualized. No intraluminal abnormality seen. Post void examination reveals small amount of residual urine and measures 7 mL. IMPRESSION: * No evidence of echogenic calculi or hydronephrosis. * No evidence of cystic or solid renal mass. * Small amount of post void residual urine and measures 7 mL. * Renal measurements as described above. Finalized by Josue Valdez MD on 11/23/2023 7:32 PM Normal [facility] XR HAND RT MIN 3 VWSon 11-22 XR HAND RT MIN 3 VWS XR HAND RT MIN 3 VW S CLINICAL INFORMATION: Right hand pain TECHNIQUE: XR HAND RT MIN 3 VWS 3 views the right hand were obtained. There is no acute osseous, articular, or soft tissue abnormality. Mild osteophytic changes present first CMC. IMPRESSION: No acute findings. Finalized by Yannick Rothman MD on 11/23/2023 11:35 AM Normal [facility] URINALYSISon 11-17-2023 Bilirubin Ql (U) Negative Normal NEG [facility] Comment on above: Performed By: #### U A #### [facility] ([id number]) [address], [address] [place] [address] BLOOD/HGB Negative Normal NEG [facility] Comment on above: Performed By: #### U A #### [facility] ([id number]) [address], [address] [place] [address] Color (U) YELLOW Normal YELLOW [facility] Comment on above: Performed By: #### U A #### [facility] ([id number]) [address], [address] [place] [address] Glucose Ql (U) Negative Normal NEG [facility] Comment on above: Performed By: #### U A #### [facility] ([id number]) [address], [address] [place] [address] Ketones Ql (U) Negative Normal NEG [facility] Comment on above: Performed By: #### U A #### [facility] ([id number]) [address], [address] [place] [address] Leukocyte esterase Test strip Ql (U) Negative Normal NEG [facility] Comment on above: Performed By: #### U A #### [facility] ([id number]) [address], [address] [place] [address] Nitrite Ql (U) Negative Normal NEG [facility] Comment on above: Performed By: #### U A #### [facility] ([id number]) [address], [address] [place] [address] pH (U) 6.5 [pH] Normal 5.0-8.5 [facility] Comment on above: Performed By: #### U A #### [facility] ([id number]) [address], [address] [place] [address] Protein Ql (U) Negative Normal NEG [facility] Comment on above: Performed By: #### U A #### [facility] ([id number]) [address], [address] [place] [address] Specific gravity (U) [Rel density] 1.011 Normal 1.003-1.035 [facility] Comment on above: Performed By: #### U A #### [facility] ([id number]) [address] [address] [place] [address] TURBIDITY CLEAR Normal CLEAR [facility] Comment on above: Performed By: #### U A #### [facility] ([id number]) [address], [address] [place] [address] Urobilinogen (U) [Mass/Vol] mg/dL Normal <1.1 [facility] Comment on above: Performed By: #### U A #### [facility] ([id number]) [address], [address] [place] [address] URINE CULTUREon 11-17-2023 Bacteria identified Cx Nom (U) CULTURE RESULTS NO GROWTH AT <1000 CFU/mL Normal [facility] Comment on above: Performed By: #### 6 30-4 #### [facility] ([id number]) [address], [address] [place] [address] COMPLETE BLOOD COUNTon 09-30 Erythrocyte distribution width (RBC) [Ratio] 13.5 % Normal 11.5-15.0 [facility] Comment on above: Performed By: #### C BC #### [facility] ([id number]) [address] [address] [place] [address] Hematocrit (Bld) [Volume fraction] 43.3 % Normal 35-47 [facility] Comment on above: Performed By: #### C BC #### [facility] ([id number]) [address] [facility] [address] [place] [address] Hemoglobin (Bld) [Mass/Vol] 14.6 g/dL Normal 11.7-15.5 [facility] Comment on above: Performed By: #### C BC #### [facility] ([id number]) [address], [facility] [address] [place] [address] MCH (RBC) [Entitic mass] 34.2 pg High 27-34 [facility] Comment on above: Performed By: #### C BC #### [facility] ([id number]) [address] [address] [place] [address] MCHC (RBC) [Mass/Vol] 33.8 g/dL Normal 32-36 [facility] Comment on above: Performed By: #### C BC #### [facility] ([id number]) [address] [address] [place] [address] MCV (RBC) [Entitic vol] 101 fL High 80-100 [facility] Comment on above: Performed By: #### C BC #### [facility] ([id number]) [address], [address] [place] [address] Platelet mean volume (Bld) [Entitic vol] 9.5 fL Normal 7-12 [facility] Comment on above: Performed By: #### C BC #### [facility] ([id number]) [address], [address] [place] [address] Platelets (Bld) [#/Vol] 281 10*3/uL Normal 150-450 [facility] Comment on above: Performed By: #### C BC #### [facility] ([id number]) [address], [address] [place] [address] RBC COUNT 4.28 X10E12/L Normal 3.80-5.20 [facility] Comment on above: Performed By: #### C BC #### [facility] ([id number]) [address], [address] [place] [address] WBC (Bld) [#/Vol] 9.5 10*3/uL Normal 4.0-11.0 [facility] Comment on above: Performed By: #### C BC #### [facility] ([id number]) [address], [address] [place] [address] MR THORACIC SPINE WO CONTon 10-01-2023 MR THORACIC SPINE WO CONT MR THORACIC SPINE WO CONT MR THORACIC SPINE WO CONT HISTORY: Thoracic spine pain. Mid back pain, progressive for the past 6 months. TECHNIQUE: Multiplanar multisequence MR of the thoracic spine was performed without intravenous contrast. COMPARISON: None. FINDINGS: Preserved thoracic vertebral body heights and alignment. No suspicious bone marrow replacing process. Benign vertebral body hemangiomas [T5, T8 vertebral bodies]. No robust bone marrow edema. Cord visualized from cervical spine through the conus, terminating at T12-L1. Ventral location of the cord throughout the region of maximal thoracic kyphosis, superimposed posterior disc extrusion at T8-T9 contributes to mass effect on the ventral cord [asymmetric flattening right ventral cord (as seen on series 20 image #26)] questionable cord signal change at this location. Capacious thecal sac posterior to the cord at this level, mild thecal sac narrowing. Similar, smaller, posterior disc protrusion at T7-T8. No substantial thecal sac narrowing elsewhere. No high-grade neural foraminal narrowing. Unremarkable paraspinal soft tissues, visualized upper abdomen or lower neck. IMPRESSION: 1. Posterior disc extrusion at T8-T9 exerts mass effect on the cord, asymmetric flattening right ventral cord. Equivocal cord signal change at this location, correlate for clinical signs of myelopathy. Thecal sac is capacious about this region, without overt cord compression. Finalized by Musa Urena MD on 10/01/2023 2:52 PM Normal [facility] XR CHEST 2 VWSon 10-01-2023 XR CHEST 2 VWS XR CHEST 2 VWS PA and lateral chest: HISTORY: Preoperative exam. Anesthesia clearance. 2 views of the chest are obtained. Cardiac and mediastinal contours are within normal limits. Lungs are clear. There is no vascular congestion, effusion, or pneumothorax. Osseous structures appear intact. IMPRESSION: No acute findings. Finalized by Yannick Rothman MD on 10/01/2023 10:29 AM Normal [facility] BASIC METABOLIC PANLon 09-23 Anion gap [Moles/Vol] 6 mmol/L Normal 5-15 [facility] Comment on above: Performed By: #### B MP #### [facility] ([id number]) [address], [address] [place] [address] Calcium [Mass/Vol] 9.3 mg/dL Normal 8.5-10.5 [facility] Comment on above: Performed By: #### B MP #### [facility] ([id number]) [address], [address] [place] [address] Chloride [Moles/Vol] 102 mmol/L Normal 98-109 [facility] Comment on above: Performed By: #### B MP #### [facility] ([id number]) [address], [address] [place] [address] CO2 [Moles/Vol] 29 mmol/L Normal 22-32 [facility] Comment on above: Performed By: #### B MP #### [facility] ([id number]) [address], [address] [place] [address] Creatinine [Mass/Vol] 0.71 mg/dL Normal 0.40-1.00 [facility] Comment on above: Result Comment: METH OD TRACEABLE TO IDMS STANDARD Performed By: #### B MP #### [facility] ([id number]) [address], [address] [place] [address] eGFR (CKD-EPI) NON-RACE DEPENDENT >90 Normal >59 [facility] Comment on above: Result Comment: Reported eGFR is based on the CKD-EPI 2020 equation that does not use a race coefficient. Performed By: #### B MP #### [facility] ([id number]) [address], [address] [place] [address] Glucose [Mass/Vol] 88 mg/dL Normal 65-99 [facility] Comment on above: Performed By: #### B MP #### [facility] ([id number]) [address], [address] [place] [address] Potassium [Moles/Vol] 3.8 mmol/L Normal 3.5-5.0 [facility] Comment on above: Performed By: #### B MP #### [facility] ([id number]) [address], [address] [place] [address] Sodium [Moles/Vol] 137 mmol/L Normal 134-146 [facility] Comment on above: Performed By: #### B MP #### [facility] ([id number]) [address], [address] [place] [address] Urea nitrogen [Mass/Vol] 8 mg/dL Normal 5-23 [facility] Comment on above: Performed By: #### B MP #### [facility] ([id number]) [address], [address] [place] [address] CBC AUTO DIFFon 08-08-2022 BASO # 0.0 103/ul Normal 0.0-0.1 [facility] Comment on above: Performed By: #### C BC #### [facility] [address] [address] [address] Seferino Brock Basophils/100 WBC (Bld) 0.5 % Normal 0.2-2.0 [facility] Comment on above: Performed By: #### C BC #### [facility] [address] [address] [address] Seferino Brock EO # 0.1 103/ul Normal 0.0-0.7 [facility] Comment on above: Performed By: #### C BC #### [facility] [address] [place] [address] Dr. Seferino Brock Eosinophils/100 WBC (Bld) 0.9 % Normal 0.9-7.0 [facility] Comment on above: Performed By: #### C BC #### [facility] [address] [place] [address] Dr. Seferino Brock Erythrocyte distribution width (RBC) [Ratio] 12.7 % Normal 11.0-15.0 [facility] Comment on above: Performed By: #### C BC #### [facility] [address] [place] [address] Dr. Seferino Brock Hematocrit (Bld) [Volume fraction] 43.0 % Normal 36.0-48.0 [facility] Comment on above: Performed By: #### C BC #### [facility] [address] [place] [address] Dr. Seferino Brock Hemoglobin (Bld) [Mass/Vol] 14.9 g/dL Normal 12.0-16.0 [facility] Comment on above: Performed By: #### C BC #### [facility] [address] [place] [address] Dr. Seferino Brock IG # 0.01 10e3/ul Normal 0.00-0.03 [facility] Comment on above: Performed By: #### C BC #### [facility] [address] [address] [address] Seferino Brock IG % 0.1 % Normal 0.0-0.5 [facility] Comment on above: Performed By: #### C BC #### [facility] [address] [place] [address] Dr. Seferino Brock LYMPH # 1.7 103/ul Normal 1.2-3.8 [facility] Comment on above: Performed By: #### C BC #### [facility] [address] [place] [address] Dr. Seferino Brock Lymphocytes/100 WBC (Bld) 22.9 % Normal 20.5-60.0 [facility] Comment on above: Performed By: #### C BC #### [facility] [address] [place] [address] Dr. Seferino Brock MANUAL DIFF REQ NO Normal [facility] Comment on above: Performed By: #### C BC #### [facility] [address] [place] [address] Dr. Seferino Brock MCH (RBC) [Entitic mass] 33.5 pg Normal 26.7-34.0 [facility] Comment on above: Performed By: #### C BC #### [facility] [address] [place] [address] Dr. Seferino Brock MCHC (RBC) [Mass/Vol] 34.7 g/dL Normal 29.9-35.2 [facility] Comment on above: Performed By: #### C BC #### [facility] [address] [place] [address] Dr. Seferino Brock MCV (RBC) [Entitic vol] 96.6 fL Normal 81.0-99.0 [facility] Comment on above: Performed By: #### C BC #### [facility] [address] [place] [address] Dr. Seferino Brock MONO # 0.4 103/ul Normal 0.3-0.8 [facility] Comment on above: Performed By: #### C BC #### [facility] [address] [place] [address] Dr. Seferino Brock Monocytes/100 WBC (Bld) 5.6 % Normal 1.7-12.0 [facility] Comment on above: Performed By: #### C BC #### [facility] [address] [place] [address] Dr. Seferino Brock NEUT # 5.2 103/ul Normal 1.4-6.5 [facility] Comment on above: Performed By: #### C BC #### [facility] [address] [place] [address] Dr. Seferino Brock Neutrophils/100 WBC (Bld) 70.0 % Normal 43.0-75.0 [facility] Comment on above: Performed By: #### C BC #### [facility] [address] [place] [address] Dr. Seferino Brock Platelet mean volume (Bld) [Entitic vol] 10.0 fL Normal 9.5-13.5 [facility] Comment on above: Performed By: #### C BC #### [facility] [address] [place] [address] Dr. Seferino Brock PLT 286 103/ul Normal 150-450 [facility] Comment on above: Performed By: #### C BC #### [facility] [address] [place] [address] Dr. Seferino Brock RBC 4.45 106/ul Normal 4.20-5.40 [facility] Comment on above: Performed By: #### C BC #### [facility] [address] [place] [address] Dr. Seferino Brock WBC 7.5 103/ul Normal 4.0-11.0 [facility] Comment on above: Performed By: #### C BC #### [facility] [address] [place] [address] HEAD WO CONon 08-08-2022 CT HEAD WO CON EXAMINATION: CT HEAD WO CON HISTORY: HEADACHE . [place] COMPARISON: None. TECHNIQUE: Axial CT scans through the head were obtained without IV contrast administration. Dose reduction techniques were achieved by using: automated exposure control and/or adjustment of mA and /or kV according to patient size and/or use of iterative reconstruction technique. FINDINGS: There is no evidence of acute intracranial hemorrhage or abnormal extra-axial fluid collection. No mass effect or midline shift is seen. There is no evidence of large acute territorial infarction. There is no hydrocephalus. No definite acute fracture is identified. Soft tissues are unremarkable. The visualized orbits show no abnormal mass. The visualized paranasal sinuses show no air-fluid level. There are mild opacifications at posterior ethmoid air cells. Mastoid air cells are clear. IMPRESSION: No CT evidence of acute intracranial abnormality. Mild opacifications of bilateral posterior ethmoid air cells, consistent with inflammatory sinus disease. Electronically authenticated by: DAYO UNLU Date: 2022-08-08 14:02 Normal [facility] CHEM 8 (BAS METB)on Anion gap [Moles/Vol] 13.3 mmol/L Normal [facility] Comment on above: Performed By: #### B MP #### [facility] [address] [place] [address] Dr. Seferino Brock Calcium [Mass/Vol] 9.6 mg/dL Normal 8.5-10.1 [facility] Comment on above: Performed By: #### B MP #### [facility] [address] [place] [address] Dr. Seferino Brock Chloride [Moles/Vol] 102 mmol/L Normal 98-107 [facility] Comment on above: Performed By: #### B MP #### [facility] [address] [place] [address] Dr. Seferino Brock CO2 [Moles/Vol] 26.1 mmol/L Normal 21.0-32.0 [facility] Comment on above: Performed By: #### B MP #### [facility] [address] [place] [address] Dr. Seferino Brock Creatinine [Mass/Vol] 0.66 mg/dL Normal 0.55-1.02 [facility] Comment on above: Performed By: #### B MP #### [facility] [address] [place] [address] Dr. Seferino Brock EGFR-AF ERITREAN >60 Normal >=60 [facility] Comment on above: Performed By: #### B MP #### [facility] [address] [address] [address] Seferino Brock EGFR-NON AF ERITREAN >60 Normal >=60 [facility] Comment on above: Performed By: #### B MP #### [facility] [id number] Seferino Brock Glucose [Mass/Vol] 92 mg/dL Normal 74-106 [facility] Comment on above: Performed By: #### B MP #### [facility] [address] [address] [address] Seferino Brock Potassium [Moles/Vol] 4.4 mmol/L Normal 3.5-5.1 [facility] Comment on above: Performed By: #### B MP #### [facility] [address] [address] [address] Seferino Brock Sodium [Moles/Vol] 137 mmol/L Normal 136-145 [facility] Comment on above: Performed By: #### B MP #### [facility] [address] [address] [address] Seferino Brock Urea nitrogen [Mass/Vol] 6.0 mg/dL Critically low 7.0-18.0 [facility] Comment on above: Performed By: #### B MP #### [facility] [address] [address] [address] Seferino Brock Urea nitrogen/Creatinine [Mass ratio] 9.1 mg/mg Normal [facility] Comment on above: Performed By: #### B MP #### [facility] [address] [address] [address] Seferino Brock Vital Signs Date Time Vital Sign Value Performing Clinician Jane galdamez 08-21-2023 10:13 Body height 157.5 cm Rachel GONSALES Work Phone: [facility] [employer] 08-21-2023 10:130400 Body mass index (BMI) [Ratio] 28.35 kg/m2 Rachel GONSALES Work Phone: [facility] 08-21-2023 10:13-0400 Body weight 70.31 kg Rachel Mckeon PA Work Phone: [facility] 08-21-2023 10:13-0400 Diastolic blood pressure 86 mm[Hg] Rachel Mckeon PA Work Phone: [facility] 08-21-2023 10:13-0400 Heart rate 82 /min Rachel Nienberg PA Work Phone: [facility] 08-21-2023 10:13-0400 Respiratory rate 18 /min Rachel Nienberg PA Work Phone: [facility] 08-21-2023 10:13-0400 Systolic blood pressure 120 mm[Hg] Rachel Nienberg PA Work Phone: [facility] 07-17-2023 09:30-0500 Diastolic blood pressure 93 mm[Hg] Rachel Nienberg PA Work Phone: [facility] 07-17-2023 09:30-0500 Systolic blood pressure 141 mm[Hg] Rachel Nienberg PA Work Phone: [facility] 07-17-2023 09:27-0500 Heart rate 92 /min Rachel Nienberg PA Work Phone: [facility] 07-17-2023 09:27-0500 Respiratory rate 16 /min Rachel Nienberg PA Work Phone: [facility] 07-17-2023 09:27-0500 SaO2% (BldA) [Mass fraction] 97 % Rachel Nienberg PA Work Phone: [facility] Encounters Encounter Date Encounter Type Care Provider Facility Start: 03-12-2024 End: 03-12-2024 ambulatory BOWEN VASQUES [facility] Start: 02-19-2024 End: 02-19-2024 ambulatory RACHEL MCKEON [facility] Start: 01-31-2024 End: 01-31-2024 ambulatory OFELIA MAXWELL [facility] Start: 01-30-2024 End: 01-30-2024 ambulatory BOWEN Olmos [facility] Start: 01-08-2024 End: 01-08-2024 ambulatory [facility] Start: 12-31-2023 End: 12-31-2023 ambulatory VERONICA S RUSHER Not Available Start: 12-23-2023 End: 02-01-2024 ambulatory [facility] Start: 12-19-2023 End: 12-19-2023 ambulatory BOWEN Olmos [facility] Start: 12-02-2023 End: 12-02-2023 ambulatory [facility] Start: 11-21-2023 End: 11-21-2023 ambulatory [facility] Start: 11-19-2023 End: 11-19-2023 ambulatory VERONICA S RUSHER Not Available Start: 11-17-2023 End: 11-17-2023 ambulatory [facility] Start: 11-17-2023 End: 11-17-2023 ambulatory [facility] Start: 11-13-2023 End: 11-13-2023 ambulatory [facility] Start: 11-05-2023 End: 11-05-2023 ambulatory VERONICA S RUSHER Not Available Start: 10-22-2023 End: 10-22-2023 ambulatory VERONICA S RUSHER Not Available Start: 10-10-2023 End: 10-10-2023 Evaluation and management of inpatient RACHELE Adalberto DENNEY [facility] Start: 10-09-2023 End: 10-10-2023 Evaluation and management of inpatient VERONICA S SEAN [facility] Start: 10-09-2023 End: 10-09-2023 Evaluation and management of inpatient VERONICA S [facility] Start: 10-01-2023 Encounter for preprocedural laboratory examination [facility] Start: 10-01-2023 End: 10-01-2023 ambulatory PASTORA PENNY [facility] Start: 09-24-2023 End: 09-24-2023 ambulatory KAMINI Burt JADIEL [facility] Start: 09-24-2023 Encounter for other preprocedural examination [facility] Start: 09-24-2023 End: 09-24-2023 ambulatory VERONICA ESTRADA Not Available Start: 09-23-2023 End: 09-23-2023 ambulatory [facility] Start: 09-09-2023 End: 09-09-2023 ambulatory VERONICA ESTRADA Not Available Start: 08-21-2023 End: 08-21-2023 Office outpatient visit 15 minutes Rachel GONSALES Work Phone: [facility] Comment on above: Lumbar spondylosis ( Primary Dx) Start: 08-21-2023 End: 08-21-2023 ambulatory [facility] Start: 08-12-2023 End: 08-12-2023 ambulatory VERONICA ESTRADA Not Available Start: 08-09-2023 End: 08-09-2023 ambulatory ALYCIA KAMARA [facility] Start: 08-08-2023 End: 08-08-2023 ambulatory [facility] Start: 08-08-2023 End: 08-08-2023 ambulatory 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 Start: 06-06-2023 End: 06-06-2023 ambulatory [facility] Start: 05-24-2023 End: 05-24-2023 ambulatory ADDISON BRANCH [facility] Start: 05-23-2023 End: 05-23-2023 ambulatory [facility] Start: 08-08-2022 End: 08-08-[address] HOLLIE PARKER . Facility: Procedures Date Procedure Procedure Detail Performing Clinician Start: 09-26-2022 H/O: surgery S/P nasal septoplasty M katty GONSALES Work Phone: Start: 06-27-2021 Adult depression screening assessment Rachel GONSALES Work Phone: Start: 03-12-2019 Colonoscopy Rachel GONSALES Work Phone: Plan of Treatment Date Care Activity Detail Author Start: 03-12-2029 Screening for malign ant neoplasm of colon Colonoscopy [facility] Start: 08-20-2024 Adult BMI Screening Adult BMI Screen ing [facility] Start: 08-20-2024 Tobacco Screening Tobacco Screening [facility] Start: 07-17-2024 Tobacco Screening Tobacco Screening [facility] Start: 02-19-2024 Adult BMI Screening Adult BMI Screen ing [facility] Start: 09-23-2023 End: 09-23-2023 Patient encounter procedure 09/23/2023 12:30 PM EDT Office Visit [facility] [address] [place] [address] Rachel Mckeon PA [address] [place], [place] [id number] [facility] Start: 08-21-2023 End: 08-21-2023 Patient encounter procedure 08/21/2023 9:45 AM EDT Office Visit [facility] [address] [place] [address] Rachel Mckeon PA [address] [place], [place] [id number] [facility] Start: 08-08-2023 End: 08-08-2023 Admission to same day surgery center 08/08/2023 9:07 AM EST - 08/08/2023 9:12 AM EST Surgery [facility] [address] [facility] [place] [id number] Bowen Vasques MD [address] [place] [address] INJECTION BURSA SMALL JOINT Left 1st CMC [ (CPT )] [facility] Comment on above: INJECTION BURSA SMAL L JOINT Left 1st CMC [ (CPT )] Start: 08-08-2023 End: 08-08-2023 Arthrocentesis aspir&/inj small jt/bursa w/o us INJECTION BURSA SMALL JOINT 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 08/08/2023 9:07 AM EST [facility] Start: 08-08-2023 Subsequent hospital visit by physician 08/08/2023 9:07 AM EST Hospital Encounter [facility] [address] [place] [id number] Bowen Vasques MD [address] [place], [place] [id number] [facility] Start: 06-27-2022 Depression Screening Depression Scre ening [facility] Start: 2020 Administration of varicella zoster vaccine Zoster (Shingles) Vaccine (1 of 2) [facility] Start: 12-26-1991 Screening for malign ant neoplasm of cervix Pap Smear [facility] Start: 1989 DTaP,Tdap and Td Vaccines (1 - Tdap) DTaP,Tdap and Td Vaccines (1 - Tdap) [facility] Start: 1988 Adult BMI Follow Up Plan Adult BMI F ollow Up Plan [facility] Start: 1970 Tobacco Counseling Tobacco Counseljuarez naidu [facility] Payers Date Payer Category Payer Medicaid [facility] MEDICAID [facility] MEDICAID [id number] 2022-Present [address] [place] [address] [id number] 2022 Medicaid [id number] 1970 Unknown [id number] 2.16.840.1.884759.3.579.2.593 1970 Unknown [id number] 2.16.840.1.886470.3.579.2.1286 1970 Unknown [id number] 2..840.1.506425.3.579.2.1286 1970 Unknown [id number] 2.16.840.1.779096.3.579.2.1286 1970 Unknown [id number] 2.16.840.1.246952.3.579.2.9 1970 Unknown [id number] 2.16.840.1.188706.3.579.2.1259 1970 Unknown [id number] 2.16.840.1.326660.3.579.2.9 1970 Unknown [id number] 2.16.840.1.106630.3.579.2.1259 1970 Unknown [id number] 2.16.840.1.209166.3.579.2.9 1970 Unknown [id number] 2.16.840.1.846459.3.579.2.9 1970 Unknown [id number] 2.16.840.1.641810.3.579.2.9 1970 Unknown [id number] 2.16.840.1.683331.3.579.2.1258 1970 Unknown [id number] 2.16.840.1.986792.3.579.2.1258 1970 Unknown [id number] 2.16.840.1.190767.3.579.2.1258 1970 Unknown [id number] 2.16.840.1.421088.3.579.2.1258 1970 Unknown [id number] 2.16.840.1.171596.3.579.2.1285 1970 Unknown [id number] 2.16.840.1.565143.3.579.2.1285 1970 Unknown [id number] 2.16.840.1.025399.3.579.2.1285 1970 Unknown [id number] 2.16840.1.100797.3.579.2.1285 1970 Unknown [id number] 2.16.840.1.992319.3.579.2.1285 1970 Unknown [id number] 2.16.840.1.863365.3.579.2.1285 1970 Unknown [id number] 2.16.840.1.329751.3.579.2.1285 1970 Unknown [id number] 2.16.840.1.596949.3.579.2.1285 1970 Unknown [id number] 2.16.840.1.903395.3.579.2.1285 1970 Unknown [id number] 2.16.840.1.398281.3.579.2.1285 1970 Unknown [id number] 2.16.840.1.330057.3.579.2.1285 1970 Unknown [id number] 2.16.840.1.214735.3.579.2.1285 1970 Unknown [id number] 2.16.840.1.751660.3.579.2.1285 1970 Unknown [id number] 2.840.1.528145.3.579.2.1285 1970 Unknown [id number] 2.16.840.1.383565.3.579.2.1285 1970 Unknown [id number] 2.840.1.662109.3.579.2.1285 1970 Unknown [id number] 2.840.1.022786.3.579.2.1285 1970 Unknown [id number] 2.840.1.030127.3.579.2.1285 1970 Unknown [id number] 2.840.1.162166.3.579.2.1285 1970 Unknown [id number] 2.840.1.558340.3.579.2.1285 1970 Unknown [id number] 2.840.1.901844.3.579.2.1285 1970 Unknown [id number] 2.840.1.204003.3.579.2.1285 1970 Unknown [id number] 2.840.1.511729.3.579.2.1285 1970 Unknown [id number] 2.840.1.785248.3.579.2.1285 1970 Unknown [id number] 2.840.1.954473.3.579.2.1285 1970 Unknown [id number] 2.840.1.272839.3.579.2.1285 1970 Unknown [id number] 2.840.1.912082.3.579.2.1285 1970 Unknown [id number] 2.16.840.1.921906.3.579.2.1285 1970 Unknown [id number] 2.16.840.1.548069.3.579.2.1285 1970 Unknown [id number] 2.16.840.1.405179.3.579.2.1285 1970 Unknown [id number] 2.16.840.1.676862.3.579.2.1285 1970 Unknown [id number] 2.16.840.1.643764.3.579.2.1285 1970 Unknown [id number] 2.16.840.1.011721.3.579.2.1285 1970 Unknown [id number] 2.16.840.1.880554.3.579.2.1285 1970 Unknown [id number] 2.16840.1.967464.3.579.2.1285 1970 Unknown [id number] 2.16.840.1.804913.3.579.2.1285 1970 Unknown [id number] 2.16.840.1.270082.3.579.2.1285 1970 Unknown [id number] 1970 Unknown [id number] 1970 Unknown [id number] 1970 Unknown [id number] Social History Date Type Detail Facility Start: 08-29-2022 Tobacco smoking stat [facility] Occasional tobacco smoker [facility] End: 06-02-2018 History of tobacco use Cigarette Smoker [facility] Start: 06-13-2020 End: 08-29-2022 Cigarettes smoked current (pack per day) - Reported 0.3 [facility] Start: 08-29-2022 Tobacco use and exposure Smokeless tobacco non-user [facility] Start: 07-17-2023 End: 08-21-2023 Alcohol intake Current non-drinker of alcohol (finding) [facility] Start: 06-13-2020 End: 07-17-2023 Tobacco use panel [facility] Adolescent depressio n screening assessment 0 [facility] Start: 1970 Sex Assigned At Not on file P [facility] Medical Equipment Procedure Code Equipment Code Equipment Origin al Text Equipment Identifier Dates Graft Sft Tis 2.5x2.5cm Biodesign [facility] - [id number] Start: 09-19-2022 History of Present illness Narrative 08-21-2023 ILDA Lovell - 08/21/2023 9:45 AM EDT Note Date & Type Note Facility 08-21-2023 History of Present illness Narrative [facility] [address] [place] [address] Patient: Robyn Rahman Sex: female : 1970 Age: 52 y.o. PCP: Pastora Penny, [employer] ASSOCIATE 08/21/2023 Robyn Rahman is here for a(n) post procedure follow up 08/08/2023 Left CMC with 60-70% initial relief and 40% lasting relief. . . Date of onset of pain: few years , pain has lasted greater than 3 months. Pain scale before treatment: 5/10 Percentage of relief after and duration: 40% lasting relief. Pain scale after treatment: 08/09 Chief Complaint Patient presents with Back Pain Hand Pain HPI: PT/HEP 09/2017 w/min relief (@6sessions) for back Back: 12/01/20 Caudal RADHA with 65% relief 06/14/2022 caudal RADHA with 90% relief . 12/29/20 Denny L1/2, 2/3 MBB w/ 80% relief. 04/13/21 Caudal with 75% relief. Bilateral L 1/2, 2/3 medial branch block on 08/17/2021 with 100% relief, 10/12/21 Caudal w/85% relief 02/01/22 Left and 02/15/22 Right L1/2, 2/3 RFA with 85% relief. 06/14/2022 Caudal w/80% relief 03/07/2023 Caudal epidural steroid injection with 90 % relief 05/23/2023 right L1/2, 2/3 RFA with 85-90% relief pre-proc pain 10/0906/20/2023 left L 1/2 2/3 radiofrequency ablations with 85%-90% relief HIP left hip injection on 06/08/2021 w/ 50% relief. left hip injection on 09/14/2021 with 85-90% relief 04/05/2022 Left Hip Injection 90% relief. 01/31/2023 Left hip injection with 50% relief Hand: 07/19/22 Left 1st CMC injection with 80% relief reported 04/11/23 Left 1st CMC joint inj with 90% relief 08/08/2023 Left CMC with 60-70% initial relief and 40% lasting relief. Back Pain This is a chronic problem. The current episode started more than 1 year ago (10+ years). The problem occurs intermittently (post RFA). The problem is unchanged. The pain is present in the lumbar spine (left hip). The quality of the pain is described as aching. Radiates to: intermittently to left hip. The pain is at a severity of 2/10. The pain is mild. The pain is The same all the time. Exacerbated by: sitting, standing, walking, stairs, cold, household activities such as laundry Stiffness is present In the morning, at night and all day. Associated symptoms include tingling (left hand) and weakness (left grasp). Pertinent negatives include no bladder incontinence, bowel incontinence, chest pain, fever, leg pain or numbness. Treatments tried: PT 09/2017 w/min relief. Danie, Flexeril, NSAID(Mobic, Motrin),Bengay,Lidocaine Patch,Yoga w/ slight relief. The treatment provided mild relief. Hand Pain Incident onset: 07/2020. There was no injury mechanism. Pain location: left thumb. The quality of the pain is described as aching. The pain radiates to the left hand (left thumb). The pain is at a severity of 3/10. The pain is moderate. The pain has been Improving since the incident. Associated symptoms include muscle weakness (left hand) and tingling (left hand). Pertinent negatives include no chest pain or numbness. Exacerbated by: movement. Treatments tried: uses current meds for back, and brace The treatment provided mild relief. The effect of pain on patient's ADLS: Moderate Impairment. Past Medical History: Diagnosis Date Arthritis Back pain Chronic pain disorder COVID-19 05/04/2021 Dental disease upper and lower partials Depression Dizziness vertigo Ectopic Eczema Hot flashes Hypertension Low back pain Mass in neck right side Pain in thumb joint with movement of left hand 07/2020 Prolonged emergence from general anesthesia PTSD (post-traumatic stress disorder) Sinusitis, chronic Visual impairment glasses Past Surgical History: Procedure Laterality Date Bilateral Lumbar L4/5, L5/S1 medial branch block #2 Bilateral 12/05/2017 Performed by Bowen Vasques MD at [facility] BREAST BIOPSY Left 2004 BENIGN EXCISIONAL BUNIONECTOMY Bilateral CARPAL TUNNEL RELEASE Right COLONOSCOPY N/A 03/12/2019 Performed by Reginald South MD at [facility] ECTOPIC SURGERY ENDOSCOPIC RESECTION CHON[place] BULLOSA NASAL Left 09/19/2022 Performed by Ravi Jimenez MD PhD at [facility] EXCISION CYST HEAD/NECK Right 06/14/2021 Performed by Ravi Jimenez MD PhD at [facility] INJECTION BLOCK EPIDURAL CAUDAL STEROID N/A 03/07/2023 Performed by Bowen Vasques MD at [facility] INJECTION BLOCK EPIDURAL CAUDAL STEROID N/A 06/14/2022 Performed by Bowen Vasques MD at [facility] INJECTION BLOCK EPIDURAL CAUDAL STEROID N/A 12/21/2021 Performed by Bowen Vasques MD at [facility] INJECTION BLOCK EPIDURAL CAUDAL STEROID N/A 10/12/2021 Performed by Bowen Vasques MD at [facility] INJECTION BLOCK EPIDURAL CAUDAL STEROID N/A 04/13/2021 Performed by Bowen Vasques MD at [facility] INJECTION BLOCK EPIDURAL CAUDAL STEROID N/A 12/01/2020 Performed by Bowen Vasques MD at [facility] INJECTION BLOCK EPIDURAL CAUDAL STEROID N/A 06/30/2020 Performed by Bowen Vasques MD at [facility] INJECTION BLOCK NERVE KNEE right genicular Right 10/27/2020 Performed by Bowen Vasques MD at [facility] INJECTION BLOCK NERVE MEDIAL BRANCH: bilat L 1/2 2/3 Bilateral 08/17/2021 Performed by Bowen Vasques MD at [facility] IN[facility]CTION BLOCK NERVE MEDIAL BRANCH: bilat L 1/2 2/3 Bilateral 12/29/2020 Performed by Bowen Vasques MD at [facility] IN[facility] BURSA LARGE JOINT: left 1st CMC Left 07/19/2022 Performed by Bowen Vasques MD at [facility] BURSA LARGE JOINT: left hip Left 01/31/2023 Performed by Bowen Vasques MD at [facility] BURSA LARGE JOINT: left hip Left 04/05/2022 Performed by Bowen Vasques MD at [facility] BURSA LARGE JOINT: left hip Left 09/14/2021 Performed by Bowen Vasques MD at [facility] BURSA LARGE JOINT: left hip Left 06/08/2021 Performed by Bowen Vasques MD at [facility] BURSA LARGE JOINT: left hip Left 08/11/2020 Performed by Bowen Vasques MD at [facility] BURSA SMALL JOINT Left 1st CMC Left 08/08/2023 Performed by Bowen Vasques MD at [facility] BURSA SMALL JOINT Left 1st CMC Left 04/11/2023 Performed by Bowen Vasques MD at [facility] BURSA SMALL JOINT left 1st cmc Left 09/22/2020 Performed by Bowen Vasques MD at [facility] INJECTION CAUDAL EPIDURAL WITH CATHETER, STEROID N/A 01/28/2020 Performed by Bowen Vasques MD at [facility] INJECTION CAUDAL EPIDURAL WITH CATHETER, STEROID N/A 10/15/2019 Performed by Bowen Vasques MD at [facility] INJECTION CAUDAL EPIDURAL WITH CATHETER, STEROID N/A 03/19/2019 Performed by Bowen Vasques MD at [facility] INJECTION CAUDAL EPIDURAL WITH CATHETER, STEROID N/A 12/21/2018 Performed by Bowen Vasques MD at [facility] INJECTION CAUDAL EPIDURAL WITH CATHETER, STEROID N/A 09/14/2018 Performed by Bowen Vasques MD at [facility] INJECTION CAUDAL EPIDURAL WITH CATHETER, STEROID N/A 08/14/2018 Performed by Bowen Vasques MD at [facility] INJECTION LARGE JOINT BURSA: left hip Left 02/25/2020 Performed by Bowen Vasques MD at [facility] INJECTION LARGE JOINT BURSA: left hip Left 01/29/2019 Performed by Bowen Vasques MD at [facility] INJECTION LARGE JOINT BURSA: right knee Right 05/05/2020 Performed by Bowen Vasques MD at [facility] INJECTION MEDIAL BRANCH NERVE BLOCK Bilateral L 4/5, 5/ Bilateral 11/14/2017 Performed by Bowen Vasques MD at [facility] INJECTION SI JOINT LEFT Left 09/19/2017 Performed by Bowen Vasques MD at [facility] Left sacroiliac joint injection x1 Left 08/29/2017 Performed by Bowen Vasques MD at [facility] RADIO FREQUENCY ABLATION Left SI joint Left 10/10/2017 Performed by Bowen Vasques MD at [facility] RADIO FREQUENCY ABLATION: left SI Left 06/19/2018 Performed by Bowen Vasques MD at [facility] RADIOFREQUENCY ABLATION SPINAL: right L 1/2 2/3 Right 02/15/2022 Performed by Bowen Vasques MD at [facility] RADIOFREQUENCY ABLATION SPINAL: left L 1/2 2/3 Left 02/01/2022 Performed by Bowen Vasques MD at [facility] RADIOFREQUENCY ABLATION SPINAL: left L 1/2, 2/3 Left 06/20/2023 Performed by Bowen Vasques MD at [facility] RADIOFREQUENCY ABLATION SPINAL: right L 1/2, 2/3 Right 05/23/2023 Performed by Bowen Vasques MD at [facility] RADIOFREQUENCY ABLATION SPINAL: left L45 [id number] Left 01/23/2018 Performed by Bowen Vasques MD at [facility] RADIOFREQUENCY ABLATION SPINAL: right L45 51rfa Right 01/12/2018 Performed by Bowen Vasques MD at [facility] RELEASE CARPAL TUNNEL Left 12/08/2017 Performed by Mat Santiago DO at [facility] RESECTION SUBMUCOSAL NASAL Bilateral 09/19/2022 Performed by Ravi Jimenez MD PhD at [facility] SEPTOPLASTY Bilateral 09/19/2022 Performed by Ravi Jimenez MD PhD at [facility] Allergies Allergen Reactions Bactrim [Sulfamethoxazole-Trimethoprim] Hives Family History Problem Relation Age of Onset Diabetes Mother Heart disease Mother Lung disease Mother Osteoporosis Mother No Known Problems Father Cancer Paternal Grandmother Breast cancer Cousin Breast cancer Maternal Aunt Denny Breast Cancer Neg Hx Social History Socioeconomic History Marital status: Spouse name: Not on file Number of children: Not on file Years of education: Not on file Highest education level: Not on file Occupational History Not on file Tobacco Use Smoking status: Some Days Packs/day: .25 Types: Cigarettes Last attempt to quit: 2019 Years since quittin.2 Smokeless tobacco: Never Vaping Use Vaping Use: Never used Substance and Sexual Activity Alcohol use: No Drug use: Yes Comment: CBD oil in coffee if needed for pain Sexual activity: Defer Partners: Male Other Topics Concern Coffee Not Asked Tea Not Asked Carbonated Beverages Not Asked Chocolate Not Asked Social History Narrative Not on file Social Determinants of Health Financial Resource Strain: Not on file Food Insecurity: No Food Insecurity (08/21/2023) Hunger Screening Food Insecurity - Worry: Never True Food Insecurity - Inability: Never True Transportation Needs: Not on file Physical Activity: Not on file Stress: Not on file Social Connections: Not on file Interpersonal Safety: Not on file Housing Instability: Not on file Review of Systems Constitutional: Negative. Negative for chills, fatigue and fever. HENT: Negative. Respiratory: Negative. Negative for cough and shortness of breath. Cardiovascular: Negative. Negative for chest pain. Gastrointestinal: Negative. Negative for bowel incontinence. Genitourinary: Negative. Negative for bladder incontinence. Musculoskeletal: Positive for arthralgias (left thumb) and back pain. Negative for gait problem. Skin: Negative. Neurological: Positive for tingling (left hand) and weakness (left grasp). Negative for numbness. Hematological: Negative. Psychiatric/Behavioral: Negative. Negative for self-injury and suicidal ideas. Vital Signs: BP 120/86 Pulse 82 Resp 18 Ht 157.5 cm (5' 2 ) Wt 70.3 kg (155 lb) LMP (LMP Unknown) Comment: no period over a year BMI 28.35 kg/m Physical Exam: GENERAL - Healthy patient that appears stated age. HEENT - Normocephalic / Atraumatic, Extraoccular movements intact, trachea midline, thyroid within normal limits. CV - pulse regular, Warm extremities with appropriate color of nailbeds. RESP - No obvious wheezing, No Shortness of Breath, No overexertion response to exam maneuvers. COORDINATION - remains intact. PSYCH - Alert and Oriented x4, Attentive and appropriate, constitutionally normal, displays normal mood and affect per situation, answered questions appropriately during examination, demonstrated appropriate attention during discussion, demonstrated appropriate cognitive reasoning and understanding of the medical condition by asking appropriate questions regarding the diagnosis and risks/benefits/alternatives of treatment modalities. No obvious deficits in memory, reasoning, or intellect. Lumbar: SKIN - No rashes or bruising in the area of the patient s pain. LYMPH NODES - demonstrate no obvious enlargement. EXTREMITIES - Lower extremities are warm, with minimal edema and palpable pulses. Tenderness to palpation noted in the lumbar spine and paraspinal musculature. Pain is elicited with flexion, extension, and lateral rotation of the lumbar spine. Range of motion is diminished with these motions due to pain. Facet palpation is noted to be somewhat tender and facet loading maneuvers are mildly positive, but not concordant with the patient s normal pain complaints. STRENGTH - noted to be 5 out of 5 all muscle groups bilateral lower extremities including muscles involving hip flexion and abduction, knee flexion and extension, as well as foot dorsiflexion and plantarflexion. No notable atrophy, fasciculations or spasm. SENSORY - No notable sensory deficits in the bilateral lower extremities to touch or pinprick in all dermatomal distributions. Straight Leg Raise is negative. Gait is normal. Assessment/Treatment Plan: Robyn was seen today for back pain and hand pain. Diagnoses and all orders for this visit: Lumbar spondylosis Monitor Follow u p 4-6 weeks The medications I have prescribed have been reviewed for medication interactions/contraindications and/or for upcoming procedures: continue current medication regimen without any changes. DISCUSSION: Treatment options discussed with patient and all questions answered to patient's satisfaction. Discussed the rules and regulations surrounding prescription of opioids and compliance at length. Failure to follow the rules and regulation will result in tapering and discontinuation of medications if applicable. Prescribed medication that requires intensive monitoring for toxicity We do not currently prescribe any controlled substance from this practice. It is noted that the patient did have good response from the previously performed procedure. It is felt that the patient would benefit from an additional procedure of the same nature in that the same symptoms have returned. It is hopeful that this additional injection will provide additional benefit and duration when combined with the previous injection. The spine model was demonstrated and Xray and MRI was reviewed and used to explain the condition. OARRS: Reviewed. Scribe Statement: Scribed for and in the presence of ILDA LOVELL by Samantha Schulz CNA. Provider Statement: I, ILDA LOVELL, personally performed the services described in the documentation, as scribed by Samantha Schulz CNA in my presence, and it is both accurate and complete. Samantha Schulz CNA 08/21/23 1056 ILDA Lovell 08/21/23 1300 documented in this encounter [facility] History of Present illness Narrative 07-17-2023 ILDA Lovell - 07/17/2023 9:15 AM EST Note Date & Type Note Facility 07-17-2023 History of Present illness Narrative [facility] [address] [place] [address] Patient: Robyn Rahman Sex: female : 1970 Age: 52 y.o. PCP: Pastora Penny, [employer]ANCH ASSOCIATE 07/17/2023 Robyn Rahman is here for a(n) post procedure follow up 07/24/2022 right then 06/20/2023 left L 1/2 2/3 radiofrequency ablations with 85%-90% relief that cotinues . Pre-procedural pain was reported as 5/10. Chief Complaint Patient presents with Back Pain HPI: Back: 12/01/20 Caudal RADHA with 65% relief 12/21/06/14/2022 caudal RADHA with 90% relief . 12/29/20 Denny L1/2, 2/3 MBB w/ 80% relief. 04/13/21 Caudal with 75% relief. Bilateral L 1/2, 2/3 medial branch block on 08/17/2021 with 100% relief, 10/12/21 Caudal w/85% relief 02/01/22 Left and 02/15/22 Right L1/2, 2/3 RFA with 85% relief. 06/14/2022 Caudal w/80% relief 03/07/2023 Caudal epidural steroid injection with 90 % relief 05/23/2023 right L1/2, 2/3 RFA with 85-90% relief pre-proc pain 10/0906/20/2023 left L 1/2 2/3 radiofrequency ablations with 85%-90% relief HIP left hip injection on 06/08/2021 w/ 50% relief. left hip injection on 09/14/2021 with 85-90% relief 04/05/2022 Left Hip Injection 90% relief. 01/31/2023 Left hip injection with 50% relief Hand: 07/19/22 Left 1st CMC injection with 80% relief reported 04/11/23 Left 1st CMC joint inj with 90% relief Back Pain This is a chronic problem. The current episode started more than 1 year ago (10+ years). The problem occurs intermittently (post RFA). The problem is unchanged. The pain is present in the lumbar spine (left hip). The quality of the pain is described as aching. Radiates to: intermittently to left hip. The pain is at a severity of 2/10. The pain is mild. The pain is The same all the time. Exacerbated by: sitting, standing, walking, stairs, cold, household activities such as laundry Stiffness is present In the morning, at night and all day. Pertinent negatives include no bladder incontinence, bowel incontinence, fever, leg pain or weakness. Treatments tried: PT 09/2017 w/min relief. Danie, Flexeril, NSAID(Mobic, Motrin),Bengay,Lidocaine Patch,Yoga w/ slight relief. The treatment provided mild relief. The effect of pain on patient's ADLS: Mild Impairment. Past Medical History: Diagnosis Date Arthritis Back pain Chronic pain disorder COVID-19 05/04/2021 Dental disease upper and lower partials Depression Dizziness vertigo Ectopic Eczema Hot flashes Hypertension Low back pain Mass in neck right side Pain in thumb joint with movement of left hand 07/2020 Prolonged emergence from general anesthesia PTSD (post-traumatic stress disorder) Sinusitis, chronic Visual impairment glasses Past Surgical History: Procedure Laterality Date Bilateral Lumbar L4/5, L5/S1 medial branch block #2 Bilateral 12/05/2017 Performed by Bowen Vasques MD at [facility] BREAST BIOPSY Left 2003 BENIGN EXCISIONAL BUNIONECTOMY Bilateral CARPAL TUNNEL RELEASE Right COLONOSCOPY N/A 03/12/2019 Performed by Reginald South MD at [facility] ECTOPIC SURGERY ENDOSCOPIC RESECTION CHON[place] BULLOSA NASAL Left 09/19/2022 Performed by Ravi Jimenez MD PhD at [facility] EXCISION CYST HEAD/NECK Right 06/14/2021 Performed by Ravi Jimenez MD PhD at [facility] INJECTION BLOCK EPIDURAL CAUDAL STEROID N/A 03/07/2023 Performed by Bowen Vasques MD at [facility] INJECTION BLOCK EPIDURAL CAUDAL STEROID N/A 06/14/2022 Performed by Bowen Vasques MD at [facility] INJECTION BLOCK EPIDURAL CAUDAL STEROID N/A 12/21/2021 Performed by Bowen Vasques MD at [facility] INJECTION BLOCK EPIDURAL CAUDAL STEROID N/A 10/12/2021 Performed by Bowen Vasques MD at [facility] INJECTION BLOCK EPIDURAL CAUDAL STEROID N/A 04/13/2021 Performed by Bowen Vasques MD at [facility] INJECTION BLOCK EPIDURAL CAUDAL STEROID N/A 12/01/2020 Performed by Bowen Vasques MD at [facility] INJECTION BLOCK EPIDURAL CAUDAL STEROID N/A 06/30/2020 Performed by Bowen Vasques MD at [facility] INJECTION BLOCK NERVE KNEE right genicular Right 10/27/2020 Performed by Bowen Vasques MD at [facility] INJECTION BLOCK NERVE MEDIAL BRANCH: bilat L 1/2 2/3 Bilateral 08/17/2021 Performed by Bowen Vasques MD at [facility] INJECTION BLOCK NERVE MEDIAL BRANCH: bilat L 1/2 2/3 Bilateral 12/29/2020 Performed by Bowen Vasques MD at [facility] BURSA LARGE JOINT: left 1st CMC Left 07/19/2022 Performed by Bowen Vasques MD at [facility] BURSA LARGE JOINT: left hip Left 01/31/2023 Performed by Bowen Vasques MD at [facility] INJECTION BURSA LARGE JOINT: left hip Left 04/05/2022 Performed by Bowen Vasques MD at [facility] INJECTION BURSA LARGE JOINT: left hip Left 09/14/2021 Performed by Bowen Vasques MD at [facility] IN[facility] BURSA LARGE JOINT: left hip Left 06/08/2021 Performed by Bowen Vasques MD at [facility] IN[facility] BURSA LARGE JOINT: left hip Left 08/11/2020 Performed by Bowen Vasques MD at [facility] INJECTION BURSA SMALL JOINT Left 1st CMC Left 04/11/2023 Performed by Bowen Vasques MD at [facility] INJECTION BURSA SMALL JOINT left 1st cmc Left 09/22/2020 Performed by Bowen Vasques MD at [facility] INJECTION CAUDAL EPIDURAL WITH CATHETER, STEROID N/A 01/28/2020 Performed by Bowen Vasques MD at [facility] IN[facility]CTION CAUDAL EPIDURAL WITH CATHETER, STEROID N/A 10/15/2019 Performed by Bowen Vasques MD at [facility] IN[facility]CTION CAUDAL EPIDURAL WITH CATHETER, STEROID N/A 03/19/2019 Performed by Bowen Vasques MD at [facility] IN[facility]CTION CAUDAL EPIDURAL WITH CATHETER, STEROID N/A 12/21/2018 Performed by Bowen Vasques MD at [facility] INJECTION CAUDAL EPIDURAL WITH CATHETER, STEROID N/A 09/14/2018 Performed by Bowne Vasques MD at [facility] INJECTION CAUDAL EPIDURAL WITH CATHETER, STEROID N/A 08/14/2018 Performed by Bowen Vasques MD at [facility] INJECTION LARGE JOINT BURSA: left hip Left 02/25/2020 Performed by Bowen Vasques MD at [facility] INJECTION LARGE JOINT BURSA: left hip Left 01/29/2019 Performed by Bowen Vasques MD at [facility] INJECTION LARGE JOINT BURSA: right knee Right 05/05/2020 Performed by Bowen Vasques MD at [facility] INJECTION MEDIAL BRANCH NERVE BLOCK Bilateral L 4/5, 5/ Bilateral 11/14/2017 Performed by Bowen Vasques MD at [facility] INJECTION SI JOINT LEFT Left 09/19/2017 Performed by Bowen Vasques MD at [facility] Left sacroiliac joint injection x1 Left 08/29/2017 Performed by Bowen Vasques MD at [facility] RADIO FREQUENCY ABLATION Left SI joint Left 10/10/2017 Performed by Bowen Vasques MD at [facility] RADIO FREQUENCY ABLATION: left SI Left 06/19/2018 Performed by Bowen Vasques MD at [facility] RADIOFREQUENCY ABLATION SPINAL: right L 1/2 2/3 Right 02/15/2022 Performed by Bowen Vasques MD at [facility] RADIOFREQUENCY ABLATION SPINAL: left L 1/2 2/3 Left 02/01/2022 Performed by Bowen Vasques MD at [facility] RADIOFREQUENCY ABLATION SPINAL: left L 1/2, 2/3 Left 06/20/2023 Performed by Bowen Vasques MD at [facility] RADIOFREQUENCY ABLATION SPINAL: right L 1/2, 2/3 Right 05/23/2023 Performed by Bow[facility] [facility] RADIOFREQUENCY ABLATION SPINAL: left L45 51rfa Left 01/23/2018 Performed by Bowen Vasques MD at [facility] RADIOFREQUENCY ABLATION SPINAL: right L45 51rfa Right 01/12/2018 Performed by Bowen Vasques MD at [facility] RELEASE CARPAL TUNNEL Left 12/08/2017 Performed by Mat Santiago DO at [facility] RESECTION SUBMUCOSAL NASAL Bilateral 09/19/2022 Performed by Ravi Jimenez MD PhD at [facility] SEPTOPLASTY Bilateral 09/19/2022 Performed by Ravi Jimenez MD PhD at [facility] Allergies Allergen Reactions Bactrim [Sulfamethoxazole-Trimethoprim] Hives Family History Problem Relation Age of Onset Diabetes Mother Heart disease Mother Lung disease Mother Osteoporosis Mother No Known Problems Father Cancer Paternal Grandmother Breast cancer Cousin Breast cancer Maternal Aunt Denny Breast Cancer Neg Hx Social History Socioeconomic History Marital status: Spouse name: Not on file Number of children: Not on file Years of education: Not on file Highest education level: Not on file Occupational History Not on file Tobacco Use Smoking status: Some Days Packs/day: .25 Types: Cigarettes Last attempt to quit: 2019 Years since quittin.1 Smokeless tobacco: Never Vaping Use Vaping Use: Never used Substance and Sexual Activity Alcohol use: No Drug use: Yes Comment: CBD oil in coffee if needed for pain Sexual activity: Defer Partners: Male Other Topics Concern Coffee Not Asked Tea Not Asked Carbonated Beverages Not Asked Chocolate Not Asked Social History Narrative Not on file Social Determinants of Health Financial Resource Strain: Not on file Food Insecurity: No Food Insecurity (07/17/2023) Hunger Screening Food Insecurity - Worry: Never True Food Insecurity - Inability: Never True Transportation Needs: Not on file Physical Activity: Not on file Stress: Not on file Social Connections: Not on file Interpersonal Safety: Not on file Housing Instability: Not on file Review of Systems Constitutional: Negative for fever. Gastrointestinal: Negative for bowel incontinence. Genitourinary: Negative for bladder incontinence. Musculoskeletal: Positive for back pain. Neurological: Negative for weakness. Vital Signs: BP (!) 141/93 Pulse 92 Resp 16 LMP (LMP Unknown) Comment: no period over a year SpO2 97% Physical Exam: GENERAL - Healthy patient that appears stated age. HEENT - Normocephalic / Atraumatic, Extraoccular movements intact, trachea midline, thyroid within normal limits. CV - pulse regular, Warm extremities with appropriate color of nailbeds. RESP - No obvious wheezing, No Shortness of Breath, No overexertion response to exam maneuvers. COORDINATION - remains intact. PSYCH - Alert and Oriented x4, Attentive and appropriate, constitutionally normal, displays normal mood and affect per situation, answered questions appropriately during examination, demonstrated appropriate attention during discussion, demonstrated appropriate cognitive reasoning and understanding of the medical condition by asking appropriate questions regarding the diagnosis and risks/benefits/alternatives of treatment modalities. No obvious deficits in memory, reasoning, or intellect. Distal Joint Exam - Upper Extremity: SKIN - No rashes or bruising in the area of the patient s pain. EXTREMITIES - Upper extremities are warm, with minimal edema and palpable pulses. Strength is 5/5 all muscle groups of the bilateral upper extremities. There is no obvious atrophy, fasciculations, or spasms. There are no notable sensory deficits in the overlying dermatomal distributions. Examination of the Left First CMC joint reveals tenderness to palpation over the joint space. Mild swelling is noted without significant erythema. Pain is elicited with flexion and extension of the joint. Assessment/Treatment Plan: Robyn was seen today for back pain. Diagnoses and all orders for this visit: 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 - Case request operating room: INJECTION BURSA LARGE JOINT: left CMC Left First CMC joint Injection - under fluoroscopy with the use of contrast dye (unless contraindicated) It is hopeful that the described procedure will provide symptomatic pain relief. It is felt to be medically necessary noting that the patient has tried and failed more conservative modalities of therapy and this is the next most appropriate step. The procedure was described in detail to the patient as well as the potential benefits of pain reduction alongside risks of the procedure and alternatives. Risks were described as including, but not limited to bleeding, infection, nerve damage, spinal cord injury, paralysis, stroke, dural puncture headache, and medication reaction. The patient expressed understanding regarding the risks and benefits and wishes to proceed. It was explained that CMC joint injections occasionally require a repeat injection before significant relief is noted, but we will determine after each injection if another one is indicated. Depending on the amount and duration of relief obtained from the injection, additional modalities of therapy including medications and physical therapy may need to be utilized alongside or following the injections. If the injection fails to provide relief for a reasonable duration, we may need to consider other options. Follow up 2 weeks after procedure The medications I have prescribed have been reviewed for medication interactions/contraindications and/or for upcoming procedures: continue current medication regimen without any changes. DISCUSSION: Treatment options discussed with patient and all questions answered to patient's satisfaction. Discussed the rules and regulations surrounding prescription of opioids and compliance at length. Failure to follow the rules and regulation will result in tapering and discontinuation of medications if applicable. Prescribed medication that requires intensive monitoring for toxicity We do not currently prescribe any controlled substance from this practice. It appears that the patient's previous pain is under adequate control with the previous procedure. At this point, we will continue to monitor these symptoms and turn our immediate attention to the more painful complaint that was discussed today. It does appear that is it the recurrent CMC joint primary pain complaint and the patient would likely benefit from a repeat procedure as treatment for this complaint as well. It is noted that the patient did have good response from the previously performed procedure. It is felt that the patient would benefit from an additional procedure of the same nature in that the same symptoms have returned. It is hopeful that this additional injection will provide additional benefit and duration when combined with the previous injection. The spine model was demonstrated and Xray and MRI was reviewed and used to explain the condition. Chronic conditions not treated during this visit that affected my overall medical decision making: Comorbidity- PTSD The patient describes a significant issue with PTSD. Although treatment is helpful with this regard, the patient is likely need special accommodation due to this condition. For this reason, necessary procedures will likely need to be performed under sedation to decrease procedural anxiety. Comorbidity- Depression The patient has an ongoing issue with depression and currently feels these symptoms are under control and further feels that appropriate pain management would also help these symptoms. The patient is optimistic about the treatment plan we have laid out. We will continue to monitor these symptoms and remain cogniscent that they may affect the patients perceived improvement from the treatment and willingness to pursue further treatment. At this time the patient appears to be mentally and emotionally stable to undergo procedural and medical therapy. If any warning signs become present, I may refer the patient to a mental health professional for further evaluation. OARRS: Reviewed. Scribe Statement: Scribed for and in the presence of ILDA LOVELL by Samantha Schulz CNA. Provider Statement: I, ILDA LOVELL, personally performed the services described in the documentation, as scribed by Samantha Schulz CNA in my presence, and it is both accurate and complete. Samantha Schulz CNA 07/17/23 1019 ILDA Lovell 07/17/23 1205 documented in this encounter [facility] Instructions 07-17-2023 Patient Instructions Note Date & Type Note Facility 07-17-2023 Instructions Samantha Schulz CNA - 07/17/2023 9:15 AM EST Joint Injections / Other These procedure(s) involve injecting steroid medications into a joint or other area explained by your physician. Steroid medicine decreases pain and inflammation. The injection may also contain an anesthetic (numbing medicine) to decrease pain. It may be done to treat conditions such as arthritis, gout, carpal tunnel syndrome and more. The injections may be given in your hip, knee, ankle, shoulder, elbow, wrist, or ankle. How Long Will This Procedure Last? The extent and duration of pain relief may depend on the amount of inflammation and how many areas are involved. Other coexisting factors may be responsible for your pain. You and your physician will discuss expected results of procedure(s). After Your Injection You may experience soreness and tenderness at the area of treatment. This pain may not occur until later today after the numbing medicine wears off. The steroid can take 3-5 days to work and provide noticeable improvement. Activity You may resume normal activity as your comfort level allows. Medications Resume your routine medications after your procedure. You may resume blood thinners per your regular schedule after the procedure. If you received sedation: If you received sedation for your procedure, you may feel sleepy or not yourself for several hours today. For the next 24 hours avoid activities that requires alertness or coordination. This includes: Driving or operating heavy machinery Using power tools Consuming alcohol Do not make important or complex decisions or sign legal documents in the next 24 hours. Other Instructions: If you feel severe pain at the injection site with swelling and redness, increased leg weakness, a fever of 101 or higher, headache (or worsening headache), changes in vision or urinary retention: Please call the office at , or have someone take you to the nearest emergency room. Tell the emergency room staff that you recently had a spine injection. A doctor must evaluate you for bleeding and injection complications. If you lose control over bowel, bladder, or legs: Go to the nearest emergency room. If you are diabetic, the steroids used in this procedure can increase your blood sugar. If your blood sugar is 250mg/dL or higher, contact your primary care physician, or the doctor who manages your diabetes, to discuss how to get it back to normal. 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- Primary 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- Primary 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 documented in this encounter [facility] Evaluation note Note Date & Type Note Facility Evaluation note Diagnosis Lumbar spondylosis- Primary Lumbosacral spondylosis without myelopathy documented in this encounter [facility] Instructions Note Date & Type Note Facility Instructions Not on filedocumented in this en counter [facility] [employer] Summary Purpose Family History No Family History Records FoundNo Family History Records FoundNo Family History Records FoundNo Family History Records FoundNo Family History Records Found Advance Directives No Advanced Directives Records FoundNo Advanced Directives Records FoundNo Advanced Directives Records FoundNo Advanced Directives Records FoundNo Advanced Directives Records Found Reason for Referral Specialty Diagnoses / Procedures Referred By Contac t Referred To Contact Diagnoses 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 Procedures Case request operating room: INJECTION BURSA LARGE JOINT: left CMC Rachel Mckeon PA [address] [place] [address] Referral ID Status Reason Start Date Expiration Date V isirohith Requested Visits Authorized [id number] Pending Review 07/17/2023 07/16/2024 1 1 Additional Source Comments INFORMATION SOURCE (unrecogn ized section and content) DATE CREATED AUTHOR 08/11/2022 [facility] DATE CREATED AUTHOR AUTHOR'S ORGANIZ ATION 11/19/2023 [facility] DATE CREATED AUTHOR AUTHOR'S ORGANIZ ATION 12/03/2023 [facility] DATE CREATED AUTHOR AUTHOR'S ORGANIZ ATION 01/02/2024 [facility] EP[facility] DATE CREATED AUTHOR AUTHOR'S ORGANIZ ATION 03/14/2024 [facility] Reason for Visit (unrecogniz ed section and content) Reason Comments Back Pain Reason Comments Back Pain Hand Pain Care Teams (unrecognized sec tion and content) [employer] Relationship Specialty Start Date End Date Pastora Penny APRN-CNP [address] [place] [address] PCP - General Family Medicine 12/10/18 [employer] Relationship Specialty Start Date End Date Pastora Penny APRN-CNP [address] [place] [address] PCP - General Family Medicine 12/10/18 FOR RECORDS PERTAINING TO PATIENTS WHO ARE OR HAVE BEEN ENROLLED IN A CHEMICAL DEPENDENCY/SUBSTANCEABUSE PROGRAM, SOME INFORMATION MAY BE OMITTED. This clinical summary was aggregated from multiple sources. Caution should be exercised in using it in the provision of clinical care. This summary normalizes information from multiple sources, and as a consequence, information in this document may materially change the coding, format and clinical context of patient data. In addition, data may be omitted in some cases. CLINICAL DECISIONS SHOULD BE BASED ON THE PRIMARY CLINICAL RECORDS. [employer] [facility]. provides no warranty or guarantee of the accuracy or completeness of information in this document.
[2024-03-22 18:24] LABS: Basophils Absolute Auto 0.1 10^3/uL (0.0-0.1); Eosinophils Absolute Auto 0.7 10^3/uL (0.0-0.7); Eosinophils Percent Auto 5.5 % (0.9-7.0); Hematocrit 41.1 % (36.0-48.0); Hemoglobin 13.7 g/dL (12.0-16.0); Immature Granulocytes Abs Auto 0.05 10^3/uL (0.00-0.03); Immature Granulocytes Pct Auto 0.4 % (0.0-0.5); Lymphocytes Absolute Auto 2.8 10^3/uL (1.2-3.8); Lymphocytes Percent Auto 23.1 % (20.5-60.0); Mean Corpuscular HGB Conc 33.3 g/dL (29.9-35.2); Mean Corpuscular Hemoglobin 33.3 pg (26.7-34.0); Mean Corpuscular Volume 99.8 fL (81.0-99.0); Mean Platelet Volume 10.6 fL (9.5-13.5); Monocytes Absolute Auto 1.1 10^3/uL (0.3-0.8); Monocytes Percent Auto 9.2 % (1.7-12.0); Neutrophils Absolute Auto 7.4 10^3/uL (1.4-6.5); Neutrophils Percent Auto 60.8 % (43.0-75.0); Platelet Count 276 10^3/uL (150-450); Red Blood Count 4.12 10^6/uL (4.20-5.40); Red Cell Distribution Width 13.3 % (11.0-15.0); White Blood Count 12.1 10^3/uL (4.0-11.0)
[2024-03-22] MEDS: ONDANSETRON PF 4 MG/2 ML VIAL IV ×2 (18:37→22:54)
[2024-03-22] MEDS: PANTOPRAZOLE SODIUM 40 MG VIAL IV (18:37)
[2024-03-22] MEDS: MORPHINE SULFATE 4 MG/ML VIAL IV (18:37)
--- NOTE | 2024-03-22 18:37 | CT_ITS ---
The [address] [address] Patient Name: MIRTA HITCHCOCK MRN: [id number] date: 1970 Sex: F Assigned Patient Location: ED.MAIN Current Patient Location: ED.MAIN Accession/Order Number: [id number] Exam Date: 03/22/2024 18:25 Report Date: 03/22/2024 19:57 At the request of: RAJ GROSS Procedure: CT abdomen pelvis w con CT OF THE ABDOMEN AND PELVIS WITH CONTRAST: 03/22/2024 6:25 PM EDT CLINICAL HISTORY: Upper abdominal pain. COMPARISONS: CT abdomen and pelvis 10/31/2023. TECHNIQUE: Thin section axial CT images were obtained from the lung bases to the pubis symphysis. This CT exam was performed using one or more of the following dose reduction techniques: Automated exposure control, adjustment of the mA and/or kV according to patient size, or use of iterative reconstruction technique. Thin section coronal and sagittal images were reconstructed from the axial data set. All images were reviewed and interpreted. CONTRAST: Intravenous contrast was administered. Type and amount is documented at the local institution. FINDINGS: LUNG BASES: No consolidation or pleural fluid. LIVER: Borderline mild enlargement measuring 20 cm in length versus Tammy's lobe with mild hepatic steatosis. Otherwise negative. GALLBLADDER: Borderline gallbladder distention with pericholecystic fluid and mild borderline gallbladder wall thickening and enhancement raising concern for possible acute cholecystitis. No visible opaque calculi on CT. Correlate with labs and other imaging as clinically directed. BILIARY TREE: No ductal dilatation. PANCREAS: Normal. SPLEEN: Normal. ADRENALS: Normal. KIDNEYS: Normal, without urolithiasis or hydronephrosis. URINARY BLADDER: Grossly unremarkable. PELVIC STRUCTURES: Redemonstration of pelvic congestion syndrome. BOWEL: No evidence of obstruction, gross mass, or inflammatory change. There is minimal diverticulosis. There is no evidence of diverticulitis. APPENDIX: No active disease with normal appendix. LYMPH NODES: No pathologically enlarged lymph nodes identified. PERITONEUM: No intraperitoneal free air. No free intraperitoneal fluid. MESENTERY: Unremarkable. RETROPERITONEUM: The retroperitoneum is unremarkable. AORTA: Normal in caliber. BODY WALL: No body wall mass. OSSEOUS STRUCTURES: Stable slight convex right curvature of the lumbar spine with some degenerative disc disease L1-2 through L4-5 unchanged. No lytic or blastic lesion or fracture. CT/CT abdomen pelvis w con IMPRESSION: 1. Findings suggestive of early acute cholecystitis. See discussion above. Correlate with labs. Recommend other imaging either right upper quadrant ultrasound and/or HIDA scan as clinically directed. 2. Redemonstration of pelvic congestion syndrome. 3. Stable mild colonic diverticulosis without acute bowel pathology. 4. Borderline hepatic enlargement and mild hepatic steatosis. Electronically authenticated by: ANU BHATIA Date: 03/22/2024 19:57
[2024-03-22 18:51] LABS: Anion Gap 16.2
[2024-03-22 18:52] LABS: Alanine Aminotransferase 34 U/L (14-59); Albumin Level 3.7 g/dL (3.4-5.0); Alkaline Phosphatase 132 U/L (46-116); Aspartate Amino Transferase 25 U/L (15-37); BUN Creatinine Ratio 17.1; Bilirubin Total 0.3 mg/dL (0.2-1.0); Carbon Dioxide 23.6 mmol/L (21.0-32.0); Chloride 106 mmol/L (98-107); Estimated GFR (African America >60 (>=60 mL/min/1.73m^2); Estimated GFR (Non-African Ame >60 (>=60 mL/min/1.73m^2); Globulin 3.6 g/dL; Glucose 111 mg/dL (74-106); Potassium 3.8 mmol/L (3.5-5.1); Sodium 142 mmol/L (136-145); Total Protein 7.3 g/dL (6.4-8.2); Troponin I High Sensitivity <4.0 pg/mL (4.0-51.3)
[2024-03-22 18:56] LABS: Lactate/Lactic Acid 2.1 mmol/L (0.4-2.0)
[2024-03-22 19:25] LABS: Bilirubin Urine NEGATIVE (NEGATIVE); Blood Urine NEGATIVE (NEGATIVE); Clarity Urine CLEAR (CLEAR); Color Urine YELLOW (YELLOW); Glucose Urine UA NEGATIVE (NEGATIVE); Ketones Urine NEGATIVE (NEGATIVE); Leukocyte Esterase Urine NEGATIVE (NEGATIVE); Nitrite Urine NEGATIVE (NEGATIVE); Protein Urine NEGATIVE (NEG/TRACE); Urobilinogen Urine 0.2 EU/dL (0.2-1.0)
[2024-03-22 19:26] LABS: Urine Microscopic Indicated NO
--- NOTE | 2024-03-22 20:04 | US_ITS ---
The [address] [address] Patient Name: MIRTA HITCHCOCK MRN: [id number] date: 1970 Sex: F Assigned Patient Location: ER Current Patient Location: ER Accession/Order Number: [id number] Exam Date: 03/22/2024 20:20 Report Date: 03/22/2024 23:25 At the request of: RAJ GROSS Procedure: US right upper quadrant EXAM: US right upper quadrant HISTORY: abdominal pain COMPARISON: CT abdomen/pelvis 03/22/2024 TECHNIQUE: Sonographic examination of the right upper quadrant of the abdomen using grayscale, color Doppler, and spectral waveform analysis. FINDINGS: The liver is normal in contour and echotexture and measures 15.3 cm in greatest dimension. No discrete hepatic mass. No intrahepatic or extrahepatic biliary ductal dilatation. Common duct measures 5 mm in diameter. The portal and hepatic veins demonstrate normal waveforms and direction of flow. The gallbladder demonstrates multiple echogenic foci some of which are antidependent, the largest nonshadowing focus measures up to 8 mm. The gallbladder wall measures up to 3 mm in thickness. Sonographic Stafford's sign is negative. Normal visualized pancreas. Normal echogenicity of the right kidney which measures 9.7 cm in length. No hydronephrosis. Normal color Doppler flow to the right kidney. No free fluid. IMPRESSIONS: Multiple echogenic foci within the gallbladder which may represent a combination of stones and polyps, measuring up to 8 mm. Otherwise no specific evidence of acute cholecystitis. If right upper quadrant symptoms, consider surgical consultation. Electronically authenticated by: TROY STEVENSON Date: 03/22/2024 23:25
[2024-03-22] MEDS: HYDROMORPHONE HCL 0.5 MG/0.5 ML SYRINGE IV ×2 (20:25→22:54)
[2024-03-22] MEDS: PIPERACILLIN SODIUM/TAZOBACTAM 4.5 GM in 0.9 % SODIUM CHLORIDE 50 ML IV (20:25)
[2024-03-22 23:20] LABS: Lactate/Lactic Acid 1.4 mmol/L (0.4-2.0)
== END 2024-03-22 23:54 | disposition home or self-care (01) ==
PROVIDERS: Physician Assistant; Emergency Provider Emergency Medicine
DX: K80.20 Calculus of gallbladder without cholecystitis without obstruction (principal)
CPT/HCPCS: 36415; 74177; 76705; 80053; 81003; 83605; 83690; 83880; 84484; 85025; 93005; 96365; 96375; 96376; 99285; J1171; J2270; J2405; J2543; Q9967

== ENCOUNTER 2024-04-07 13:44 | Outpatient (OUT) | payer MEDICAID, SELFPAY ==
--- OUTSIDE RECORDS SUMMARY | 2024-04-07 14:04 | XMS_ITS | CCD ---
Author Organization [facility] Care Team Providers Care Precision Instrument Maker And Repairer Name Role Phone DR HOLLIE SERVIN Consulting Unavailable [facility] Primary Care Unava ilable ELENA Morin, DR BROWNE Attending Unavailable ELENA Morin, DR BROWNE Admitting Unavailable UNLU, DAYO Consulting Unavailable Anglim PROVIDER NETWORK ANALYST-SUPERVISOR CIGAR PROCESSING, Pastora A Primary Care Provider HANS GONSALEZ Referring Unavailable ANGLIM, PASTORA A Primary Care Unavailable HANS GONSALEZ Attending Unavailable ANGLIM, PASTORA A Referring Unavailable ANGLIM, PASTORA A Primary Care Unavailable HANS GONSALEZ Attending Unavailable ANGLIM, PASTORA A Referring Unavailable ANGLIM, PASTORA A Primary Care Unavailable Ianlim Pastora FUENTES Unavailable Sandra Gonzalez MD Primary Care Provider [phone] SHAILESH VASQUES Attending Unavailable SHAILESH VASQUES Referring Unavailable ANGLIM, PASTORA A Primary Care Unavailable SHAILESH VASQUES Admitting Unavailable SHAILESH VASQUES Attending Unavailable ANGLIM, PASTORA A Referring [...] Primary Care Unavailable RACHEL MCKEON Attending Unavailable RACHEL MCKEON Referring Unavailable ANGLIM, PASTORA A Primary Care Unavailable ANGLIM, PASTORA A Referring Unavailable ANGLIM, PASTORA A Primary Care Unavailable ANGLIM, PASTORA A Referring Unavailable ANGLIM, PASTORA A Primary Care Unavailable RUSHER, AUBREY S Admitting Unavailable RUSHER, AUBREY S Attending Unavailable RUSHER, AUBREY S Referring Unavailable ANGLIM, PASTORA A Primary Care Unavailable RACHELE DENNEY Attending Unavailable ANGLIM, PASTORA A Primary Care Unavailable RUSHER, AUBREY S Attending Unavailable RUSHER, AUBREY S Referring Unavailable ANGLIM, PASTORA A Primary Care Unavailable VASQUES, SHAILESH Olmos Admitting Unavailable VASQUES, SHAILESH Olmos Attending Unavailable ANGLIM, PASTORA A Referring Unavailable ANGLIM, PASTORA A Primary Care Unavailable VASQUES, SHAILESH Olmos Attending Unavailable VASQUES, SHAILESH Olmos Referring Unavailable ANGLIM, PASTORA A Primary Care Unavailable ADIDSON BRANCH Attending Unavailable ANGLIM, PASTORA A Primary Care Unavailable VASQUES, SHAILESH Olmos Attending Unavailable VASQUES, SHAILESH Olmos Referring Unavailable ANGLIM, PASTORA A Primary Care Unavailable VASQUES, SHAILESH Olmos Admitting Unavailable VASQUES, SHAILESH Olmos Attending Unavailable ANGLIM, PASTORA A Referring Unavailable ANGLIM, PASTORA A Primary Care Unavailable VASQUES, SHAILESH Olmos Admitting Unavailable VASQUES, SHAILESH Olmos Attending Unavailable VASQUES, SHAILESH Olmos Referring Unavailable ANGLIM, PASTORA A Primary Care Unavailable VASQUES, SHAILESH Olmos Attending Unavailable VASQUES, SHAILESH Olmos Referring Unavailable ANGLIM, PASTORA A Primary Care Unavailable JOE LAWSON Attending Unavailable ANGLIM, PASTORA A Primary Care Unavailable NIENBERG, RACHEL Black Attending Unavailable ANGLIM, PASTORA A Referring Unavailable ANGLIM, PASTORA A Primary Care Unavailable NIENBERG, RACHEL Black Attending Unavailable ANGLIM, PASTORA A Referring Unavailable ANGLIM, PASTORA A Primary Care Unavailable HANS GONSALEZ Attending Unavailable HANS GONSALEZ Referring Unavailable ANGLIM, PASTORA A Primary Care Unavailable NIENBERG, RACHEL Black Attending Unavailable NIENBERG, RACHEL Black Referring Unavailable ANGLIM, PASTORA A Primary Care Unavailable VASQUES, SHAILESH Olmos Admitting Unavailable VASQUES, SHAILESH Olmos Attending Unavailable ANGLIM, PASTORA A Referring Unavailable ANGLIM, PASTORA A Primary Care Unavailable NIENBERG, RACHEL Black Referring Unavailable ANGLIM, PASTORA A Primary Care Unavailable NIENBERG, RACHEL Black Attending Unavailable ANGLIM, PASTORA A Referring Unavailable ANGLIM, PASTORA A Primary Care Unavailable VASQUES, SHAILESH Olmos Admitting Unavailable VASQUES, SHAILESH Olmos Attending Unavailable ANGLIM, PASTORA A Referring Unavailable ANGLIM, PASTORA A Primary Care Unavailable VASQUES, SHAILESH Olmos Attending Unavailable VASQUES, SHAILESH E Referring Unavailable ANGLIM, PASTORA A Primary Care Unavailable OFELIA MAXWELL Attending Unavail able ANGLIM, PASTORA A Primary Care Unavailable NIENBERG, RACHEL S Attending Unavailable ANGLIM, PASTORA A Referring Unavailable ANGLIM, PASTORA A Primary Care Unavailable VASQUES, SHAILESH E Attending Unavailable VASQUES, SHAILESH E Referring Unavailable ANGLIM, PASTORA A Primary Care Unavailable VASQUES, SHAILESH E Admitting Unavailable VASQUES, SHAILESH E Attending Unavailable ANGLIM, PASTORA A Referring Unavailable ANGLIM, PASTORA A Primary Care Unavailable NIENBERG, RACHEL S Attending Unavailable ANGLIM, PASTORA A Referring Unavailable ANGLIM, PASTORA A Primary Care Unavailable RUSHER, AUBREY S Attending Unavailable ANGLIM, PASTORA Referring Unavailable RUSHER, AUBREY S Referring Unavailable RUSHER, AUBREY S Attending Unavailable RUSHER, AUBREY S Attending Unavailable RUSHER, ABUREY S Attending Unavailable RUSHER, AUBREY S Referring Unavailable RUSHER, AUBREY S Attending Unavailable RUSHER, AUBREY S Attending Unavailable RUSHER, AUBREY S Referring Unavailable RUSHER, AUBREY S Attending Unavailable RUSHER, AUBREY S Referring Unavailable MARY, SAURABH Attending Unavailable MARY, SAURABH Referring Unavailable RUSHER, AUBREY S Attending Unavailable Allergies Allergy Classification Reported Allergen(s) Allergy Type Date of Onset Reaction(s) Facility Sulfamethoxazole / Trimethoprim (1 source) Sulfamethoxazole / Trimethoprim; Translations: [SULFAMETHOXAZOLE-T RIMETHOPRIM] Drug Allergy 08-26-[address] [facility] Repository (1 source) Sulfamethoxazole / Trimethoprim Drug Allergy 05-05-20 21 [facility] Repository (11 sources) Sulfamethoxazole / Trimethoprim; Translations: [SULFAMETHOXAZOLE-T RIMETHOPRIM] Drug Allergy 08-26-19 18 [facility] (6 sources) House dust mite Propensity to adverse reactions 02-25-20 19 Unknown [facility] (6 sources) Pollen Propensity to adverse reactions 02-25-20 19 Unknown [facility] (6 sources) Dog Epithelium (Canis Lupus Familiaris) Propensity to adverse reactions 02-25-20 19 Unknown [facility] (6 sources) Mixed Ragweed Propensity to adverse reactions 02-25-20 19 Unknown [facility] Medications Current Medications Medication Drug Class(es) Dates Sig (Normalized) Sig (Original) [id number] 200 actuat albuterol 0.09 mg/actuat metered dose inhaler (3 sources) beta2-Adrenergic Agonist Start: 05-04-2021 take 2 puff(s) by inhalation every four to six hours for wheezing albuterol (PROVENTIL HFA;VENTOLIN HFA) 90 mcg/actuation inhaler inhale 2 puffs every 4 to 6 hours if needed for shortness of breath and wheezing 05/04/2021 Active ARIPiprazole 5 mg oral tablet (9 sources) Atypical Antipsychotic Start: 06-25-2021 take 1 tablet by mouth once daily ARIPiprazole (ABILIFY) 5 mg tablet Take 1 tablet (5 mg total) by mouth nightly. 06/25/2021 Active ascorbic acid/zinc/elderberr y (SAMBUCUS ELDERBERRY ORAL) (3 sources) ascorbic acid/zinc/elderber ry (SAMBUCUS ELDERBERRY ORAL) Take by mouth. Active ascorbic acid/zi nc/elderberry (SAMBUCUS ELDERBERRY ORAL) Take by mouth. 0 Active baclofen 10 mg oral tablet (9 sources) gamma-Aminobutyric Acid-ergic Agonist Start: 01-08-2022 take 1 tablet by mouth three times daily baclofen (LIORESAL) 10 mg tablet Take 1 tablet (10 mg total) by mouth 3 (three) times a day. 90 tablet 3 01/08/2022 Active baclofen (Liores al) 20 MG tablet PRN Active busPIRone hydrochloride 30 mg oral tablet (9 sources) Start: 06-25-2021 take 1 tablet by mouth in the morning busPIRone (BUSPAR) 30 mg tablet Take 30 mg by mouth in the morning and 30 mg before bedtime. 06/25/2021 Active busPIRone (Buspa r) 30 MG tablet every 12 (twelve) hours Active citalopram 40 mg oral tablet (9 sources) Serotonin Reuptake Inhibitor citalopram (CeleXA) 40 MG tablet Take 20 mg by mouth in the morning. Active take 0.5 tablet by mouth in the morning citalopram (CeleXA) 40 mg tablet Take 0.5 tablets (20 mg total) by mouth in the morning. Active clotrimazole 10 mg/ml topical cream (6 sources) Azole Antifungal Start: 08-05-2023 clotrimazole (Lotrimin) 1 % cream APPLY DAILY TO SKIN TO AFFECTED AREA TWICE A DAY FOR 2 WEEKS 08/05/2023 Active estradiol 0.1 mg/ml vaginal cream (1 source) Estrogen Start: 11-17-2023 estradioL (ESTRACE) 0.01 % (0.1 mg/gram) vaginal cream Indications: Cystocele with uterine prolapse , Urinary, incontinence, stress female Insert 1 g into the vagina in the morning. 42.5 g 1 11/17/2023 Active fexofenadine hydrochloride 180 mg oral tablet (9 sources) Histamine-1 Receptor Antagonist Start: 07-23-2019 take 1 tablet by mouth in the morning ALLERGY RELIEF, FEXOFENADINE, 180 mg tablet Take 1 tablet (180 mg total) by mouth in the morning. 07/23/2019 Active Fish Oils (6 sources) take 1 capsule by mouth every eight hours omega-3 (Fish Oil) 500 MG capsule 1 capsule every 8 (eight) hours Active fluticasone propionate 0.05 mg/actuat metered dose nasal spray (8 sources) Corticosteroid take 1 spray(s) nasal route twice daily fluticasone (Flonase) 50 MCG/ACT nasal spray SPRAY 1 SPRAY INTO EACH NOSTRIL TWICE A DAY FOR 30 DAYS Active take 1 spray(s) nasal route twic e daily fluticasone propionate (FLONASE) 50 mcg/actuation nasal spray SPRAY 1 SPRAY INTO EACH NOSTRIL TWICE A DAY FOR 30 DAYS Active guaiFENesin 400 mg oral tablet (3 sources) Start: 05-10-2019 take 1 tablet by mouth every four hours as needed MUCUS RELIEF 400 mg tablet 1 tablet (400 mg total) every 4 (four) hours as needed. 05/10/2019 Active hydrOXYzine pamoate 50 mg oral capsule (9 sources) Antihistamine Start: 06-25-2021 take 1 capsule by mouth every twelve hours as needed hydrOXYzine pamoate (Vistaril) 50 MG capsule TAKE 1-2 CAPSULES BY MOUTH EVERY 12 HRS NEEDED FOR PANIC 03/08/2023 Active ibuprofen 800 mg oral tablet (7 sources) Nonsteroidal Anti-inflammatory Drug take 1 tablet by mouth three times daily as needed ibuprofen 800 MG tablet TAKE 1 TABLET BY MOUTH THREE TIMES A DAY NEEDED WITH FOOD OR MILK for 30 Active lamoTRIgine 100 mg oral tablet (9 sources) Mood Stabilizer, Anti-epileptic Agent Start: 06-25-2021 take 1 tablet by mouth in the morning lamoTRIgine (LaMICtal) 100 mg tablet Take 1 tablet (100 mg total) by mouth in the morning. 06/25/2021 Active lisinopril 5 mg oral tablet (9 sources) Angiotensin Converting Enzyme Inhibitor Start: 02-24-2019 take 1 tablet by mouth once daily lisinopril (PRINIVIL,ZESTRIL) 5 mg tablet take 1 tablet by mouth once daily (NOTE DECREASED DOSE) 0 02/24/2019 Active meclizine hydrochloride 25 mg chewable tablet (9 sources) Antiemetic Meclizine HCl 25 MG chewable tablet Chew 25 mg 3 (three) times a day as needed Active methylPREDNISolone (6 sources) Corticosteroid Start: 08-12-2023 methylPREDNISolone (Medrol Dospak) 4 MG tablets Indications: Bursitis of right foot Take as directed on package. 21 tablet 08/12/2023 Active montelukast 10 mg oral tablet (9 sources) Leukotriene Receptor Antagonist Start: 05-02-2022 take 1 tablet by mouth in the morning montelukast (SINGULAIR) 10 mg tablet Take 1 tablet (10 mg total) by mouth in the morning. 05/02/2022 Active Multiple Vitamin (Multi Vitamin) tablet (6 sources) Multiple Vitamin (Multi Vitamin) tablet TAKE 1 TABLET BY MOUTH EVERY DAY FOR 30 DAYS for 30 Active multivitamin (THERAGRAN) tablet (3 sources) Start: 04-15-2022 take 1 tablet by mouth in the morning multivitamin (THERAGRAN) tablet Take 1 tablet by mouth in the morning. 04/15/2022 Active Start: 04-15-2022 take 1 tablet by barbi th in the morning multivitamin (THERAGRAN) tablet Take 1 tablet by mouth in the morning. 0 04/15/2022 Active lgzdanfmztio-Xj-sexe-mineral s tablet (2 sources) multivitamin-Ca- iron-minerals tablet TAKE 1 TABLET BY MOUTH EVERY DAY FOR 30 DAYS for 30 Active multivitamin-Ca- iron-minerals tablet TAKE 1 TABLET BY MOUTH EVERY DAY FOR 30 DAYS for 30 0 Active mupirocin 0.02 mg/mg topical ointment (9 sources) RNA Synthetase Inhibitor Antibacterial Start: 09-18-2022 mupirocin (Bactr oban) 2 % ointment Applied intranasally bilaterally 2 times daily 09/18/2022 Active Start: 09-18-2022 mupirocin (CLIFTON TROBAN) 2 % ointment Applied intranasally bilaterally 2 times daily 15 g 09/18/2022 Active omega 7-tqf-ved-fish oil (Fish OiL) 300-1,000 mg capsule (3 sources) take 300-1000 mg by mouth in the morning omega 9-boy-dxl-fish oil (Fish OiL) 300-1,000 mg capsule Take 1 tablet by mouth in the morning. Active take 300-1000 mg by mouth in the morning omega 9-kkx-ihb-fish oil (Fish OiL) 300-1,000 mg capsule Take 1 tablet by mouth in the morning. 0 Active omega 0-mib-xpb-fish oil 60-90-500 mg capsule,delayed release(DR/EC) (2 sources) take 1 capsule by mouth every eight hours omega 7-art-cvd-fish oil 60-90-500 mg capsule,delayed release(DR/EC) 1 capsule every 8 (eight) hours. Active take [address] [facility] every eight hours omega 0-hyi-vkz-fish oil 60-90-500 mg capsule,delayed release(DR/EC) 1 capsule every 8 (eight) hours. 0 Active prazosin 1 mg oral capsule (9 sources) alpha-Adrenergic Alecia Start: 06-24-2022 prazo sin (MINIPRESS) 1 mg capsule 2 capsules (2 mg total) once daily at bedtime. 06/24/2022 Active prazosin (Minipr ess) 2 MG capsule 1 (one) time each day at the same time Active traZODone hydrochloride 50 mg oral tablet (9 sources) Serotonin Reuptake Inhibitor Start: 07-26-2021 traZODone (DESYREL) 50 mg tablet 3 tablets (150 mg total). 07/26/2021 Active traZODone (Desyr el) 150 MG tablet 1 (one) time each day at the same time Active triamcinolone acetonide 5 mg/ml topical cream (6 sources) Corticosteroid Start: 11-27-2022 triamcinolone (Kenalog) 0.5 % cream 1 Application every 12 (twelve) hours 11/27/2022 Active Turmeric extract (6 sources) Turmeric 500 MG capsule 1 (one) time each day at the same time Active turmeric/turmeric ext/pepr ext (turmeric-turmeric ext-pepper) 500-3 mg capsule (2 sources) turmeric/turmeri c ext/pepr ext (turmeric-turmeric ext-pepper) 500-3 mg capsule With cumin and seamoss Active turmeric/turmeri c ext/pepr ext (turmeric-turmeric ext-pepper) 500-3 mg capsule With cumin and seamoss 0 Active vitamin b12 1 mg oral tablet (9 sources) Vitamin B12 Start: 01-28-2023 take 1 tablet by mouth once daily cyanocobalamin (Vitamin B-12) 1000 MCG tablet Take 1,000 mcg by mouth Daily 01/28/2023 Active Start: 12-14-2021 cyanocobalamin 500 MCG tablet 2 tablets (1,000 mcg total). 12/14/2021 Active Problems Active Problems Problem Classification Problem Date Documented Date Episodic/Chronic Biliary tract disease (2 sources) Recurrent biliary colic; Translations: [Calculus of bile duct without cholangitis or cholecystitis without obstruction] 03-29-2024 Episodic Conditions associated with dizziness or vertigo (1 [...] migraine; Translations: [HEADACHE UNSPECIFIED] Onset: 08-08-2022 Osteoarthritis (20 sources) Localized, primary osteoarthritis of the wrist; Translations: [Primary osteoarthritis, left wrist] Onset: 04-20-2020 07-17-2023 Chronic Other aftercare (1 source) Other roasterman (current) drug therapy; Translations: [OTH FIELD CARE MANAGER CURRENT DRUG THERAPY] Onset: 08-10-2022 Episodic Other connective tissue disease (2 sources) Pain in right foot; Translations: [Pain in right foot] 04-05-2024 Episodic Other nervous system disorders (6 sources) Carpal tunnel syndrome of left wrist; Translations: [Carpal tunnel syndrome, left upper limb] Onset: 08-12-2023 08-12-2023 Chronic Other upper respiratory infections (3 sources) Chronic sinusitis; Translations: [Other chronic sinusitis] Onset: 03-11-2022 07-31-2022 Chronic Prolapse of female genital organs (3 sources) Uterovaginal prolapse, unspecified; Translations: [Uterovaginal prolapse, unspecified] Onset: 11-17-2023 Chronic Residual codes; unclassified (2 sources) History of operative procedure on foot; Translations: [Other specified postprocedural states] 04-05-2024 Episodic Spondylosis; intervertebral disc disorders; other back problems (20 sources) Lumbar spondylosis; Translations: [Spondylosis without myelopathy or radiculopathy, lumbar region] Onset: 11-12-2017 05-23-2023 Chronic Substance-related disorders (1 source) Nicotine dependence, cigarettes, uncomplicated; Translations: [Nicotine dependence, cigarettes, uncomplicated] Onset: 10-01-2023 Chronic Unclassified (1 source) Pessary; fitting Onset: 12-02-2023 Unclassified (1 source) Vaginal Prolapse Onset: 11-17-2023 Unclassified (1 source) 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 [M19.032] Onset: 08-08-2023 Past or Other Problems Problem Classification Problem Date Documented Date Episodic/Chronic Mood disorders (3 sources) Mood disorders Onset: 06-27-2021 06-27-2021 Other connective tissue disease (1 source) Pain in right hand; Translations: [Pain in right hand] Onset: 11-13-2023 Episodic Other connective tissue disease (1 source) Hand pain Onset: 08-21-2023 Episodic Other non-traumatic joint disorders (9 sources) Hip pain; Translations: [Pain in left hip] Onset: 01-21-2019 01-14-2023 Episodic Other skin disorders (9 sources) Mass of neck; Translations: [Localized swelling, mass and lump, neck] Onset: 04-23-2021 04-23-2021 Episodic Other upper respiratory disease (9 sources) Deviated nasal septum; Translations: [Deviated nasal septum] Onset: 07-31-2022 07-31-2022 Episodic Other upper respiratory disease (9 sources) Jessica bullosa; Translations: [Other specified disorders of nose and nasal sinuses] Onset: 09-04-2022 09-04-2022 Episodic Residual codes; unclassified (1 source) Other specified postprocedural states; Translations: [Other specified postprocedural states] Onset: 10-09-2023 Episodic Spondylosis; intervertebral disc disorders; other back problems (20 sources) Disorder of sacrum; Translations: [Sacrococcygeal disorders, not elsewhere classified] Onset: 08-25-2017 06-17-2018 Episodic Results Test Name Value Interpretation Reference [...] Simeon Johnson MD on 11/23/2023 7:04 AM Normal [facility] US RETROPERITONEAL COMPLETEo n 11-23-2023 US RETROPERITONEAL [...] Valdez MD on 11/23/2023 7:32 PM Normal [facility] XR HAND RT MIN 3 VWSon 11-22 [...] Rothman MD on 11/23/2023 11:35 AM Normal [facility] URINALYSISon 11-17-2023 Bilirubin Ql (U) Negative Normal NEG [facility] Comment on above: Performed By: #### U A #### [facility] ([id number]) [address], [address] [place] [address] BLOOD/HGB Negative Normal NEG [facility] Comment on above: Performed By: #### U A #### [facility] ([id number]) [address], [address] [place] [address] Color (U) YELLOW Normal YELLOW [facility] Comment on above: Performed By: #### U A #### [facility] ([id number]) [address], [address] [place] [address] Glucose Ql (U) Negative Normal NEG [facility] Comment on above: Performed By: #### U A #### [facility] ([id number]) [address], [address] [place] [address] Ketones Ql (U) Negative Normal NEG [facility] Comment on above: Performed By: #### U A #### [facility] ([id number]) [address], [address] [place] [address] Leukocyte esterase Test strip Ql (U) Negative Normal NEG [facility] Comment on above: Performed By: #### U A #### [facility] ([id number]) [address], [address] [place] [address] Nitrite Ql (U) Negative Normal NEG [facility] Comment on above: Performed By: #### U A #### [facility] ([id number]) [address], [address] [place] [address] pH (U) 6.5 [pH] Normal 5.0-8.5 [facility] Comment on above: Performed By: #### U A #### [facility] ([id number]) [address], [address] [place] [address] Protein Ql (U) Negative Normal NEG [facility] Comment on above: Performed By: #### U A #### [facility] ([id number]) [address] [place] [address] Specific gravity (U) [Rel density] 1.011 Normal 1.003-1.035 [facility] Comment on above: Performed By: #### U A #### [facility] ([id number]) [address] [place] [address] TURBIDITY CLEAR Normal CLEAR [facility] Comment on above: Performed By: #### U A #### [facility] ([id number]) [address], [address] [place] [address] Urobilinogen (U) [Mass/Vol] mg/dL Normal <1.1 [facility] Comment on above: Performed By: #### U A #### [facility] ([id number]) [address] [place] [address] URINE CULTUREon 11-17-2023 Bacteria identified Cx Nom (U) CULTURE RESULTS NO GROWTH AT <1000 CFU/mL Normal [facility] Comment on above: Performed By: #### 6 30-4 #### [facility] ([id number]) [address] [place] [address] COMPLETE BLOOD COUNTon 09-30 Erythrocyte distribution width (RBC) [Ratio] 13.5 % Normal 11.5-15.0 [facility] Comment on above: Performed By: #### C BC #### [facility] ([id number]) [address] [place] [address] Hematocrit (Bld) [Volume fraction] 43.3 % Normal 35-47 [facility] Comment on above: Performed By: #### C BC #### [facility] ([id number]) [address] [place] [address] Hemoglobin (Bld) [Mass/Vol] 14.6 g/dL Normal 11.7-15.5 [facility] Comment on above: Performed By: #### C BC #### [facility] ([id number]) [address] [place] [address] MCH (RBC) [Entitic mass] 34.2 pg High 27-34 [facility] Comment on above: Performed By: #### C BC #### [facility] ([id number]) [address] [place] [address] MCHC (RBC) [Mass/Vol] 33.8 g/dL Normal 32-36 [facility] Comment on above: Performed By: #### C BC #### [facility] ([id number]) [address] [place] [address] MCV (RBC) [Entitic vol] 101 fL High 80-100 [facility] Comment on above: Performed By: #### C BC #### [facility] ([id number]) [address] [place] [address] Platelet mean volume (Bld) [Entitic vol] 9.5 fL Normal 7-12 [facility] Comment on above: Performed By: #### C BC #### [facility] ([id number]) [address] [place] [address] Platelets (Bld) [#/Vol] 281 10*3/uL Normal 150-450 [facility] Comment on above: Performed By: #### C BC #### [facility] ([id number]) [address] [place] [address] RBC COUNT 4.28 X10E12/L Normal 3.80-5.20 [facility] Comment on above: Performed By: #### C BC #### [facility] ([id number]) [address] [place] [address] WBC (Bld) [#/Vol] 9.5 10*3/uL Normal 4.0-11.0 [facility] Comment on above: Performed By: #### C BC #### [facility] ([id number]) [address] [place] [address] MR THORACIC SPINE WO CONTon 10-01-2023 MR [...] Urena MD on 10/01/2023 2:52 PM Normal [facility] XR CHEST 2 VWSon 10-01-2023 XR CHEST [...] Rothman MD on 10/01/2023 10:29 AM Normal [facility] BASIC METABOLIC PANLon 09-23 Anion gap [Moles/Vol] 6 mmol/L Normal 5-15 [facility] Comment on above: Performed By: #### B MP #### [facility] ([id number]) [address] [place] [address] Calcium [Mass/Vol] 9.3 mg/dL Normal 8.5-10.5 [facility] Comment on above: Performed By: #### B MP #### [facility] ([id number]) [address] [place] [address] Chloride [Moles/Vol] 102 mmol/L Normal 98-109 [facility] Comment on above: Performed By: #### B MP #### [facility] ([id number]) [address], [address] [place] [address] CO2 [Moles/Vol] 29 mmol/L Normal 22-32 [facility] Comment on above: Performed By: #### B MP #### [facility] ([id number]) [address] [place] [address] Creatinine [Mass/Vol] 0.71 mg/dL Normal 0.40-1.00 [facility] Comment on above: Result Comment: METH OD TRACEABLE TO IDMS STANDARD Performed By: #### B MP #### [facility] ([id number]) [address] [place] [address] eGFR (CKD-EPI) NON-RACE DEPENDENT >90 Normal >59 [facility] Comment on above: Result Comment: Reported eGFR is based on the CKD-EPI 2020 equation that does not use a race coefficient. Performed By: #### B MP #### [facility] ([id number]) [address] [place] [address] Glucose [Mass/Vol] 88 mg/dL Normal 65-99 [facility] Comment on above: Performed By: #### B MP #### [facility] ([id number]) [address] [place] [address] Potassium [Moles/Vol] 3.8 mmol/L Normal 3.5-5.0 [facility] Comment on above: Performed By: #### B MP #### [facility] ([id number]) [address] [place] [address] Sodium [Moles/Vol] 137 mmol/L Normal 134-146 [facility] Comment on above: Performed By: #### B MP #### [facility] ([id number]) [address] [place] [address] Urea nitrogen [Mass/Vol] 8 mg/dL Normal 5-23 [facility] Comment on above: Performed By: #### B MP #### [facility] ([id number]) [address], [address] [place] [address] CBC AUTO DIFFon 08-08-2022 BASO # 0.0 103/ul Normal 0.0-0.1 [facility] Comment on above: Performed By: #### C BC #### [facility] [address] [address] [address] Sfeerino Brock Basophils/100 WBC (Bld) 0.5 % Normal 0.2-2.0 [facility] Comment on above: Performed By: #### C BC #### [facility] [address] [place] [address] Dr. Seferino Brock EO # 0.1 103/ul Normal 0.0-0.7 [facility] Comment on above: Performed By: #### C BC #### [facility] [address] [place] [address] Dr. Seferino Brock Eosinophils/100 WBC (Bld) 0.9 % Normal 0.9-7.0 [facility] Comment on above: Performed By: #### C BC #### [facility] [address] [place] [address] Dr. Seferino Brock Erythrocyte distribution width (RBC) [Ratio] 12.7 % Normal 11.0-15.0 [facility] Comment on above: Performed By: #### C BC #### [facility] [address] [place] [address] Dr. Seferino Brock Hematocrit (Bld) [Volume fraction] 43.0 % Normal 36.0-48.0 [facility] Comment on above: Performed By: #### C BC #### [facility] [address] [place] [address] Dr. Seferino Brock Hemoglobin (Bld) [Mass/Vol] 14.9 g/dL Normal 12.0-16.0 [facility] Comment on above: Performed By: #### C BC #### [facility] [address] [place] [address] Dr. Seferino Brock IG # 0.01 10e3/ul Normal 0.00-0.03 [facility] Comment on above: Performed By: #### C BC #### [facility] [address] [place] [address] Dr. Seferino Brock IG % 0.1 % Normal 0.0-0.5 [facility] Comment on above: Performed By: #### C BC #### [facility] [address] [place] [address] Dr. Seferino Brock LYMPH # 1.7 103/ul Normal 1.2-3.8 [facility] Comment on above: Performed By: #### C BC #### [facility] [address] [place] [address] Dr. Seferino Brock Lymphocytes/100 WBC (Bld) 22.9 % Normal 20.5-60.0 [facility] Comment on above: Performed By: #### C BC #### [facility] [address] [place] [address] Dr. Seferino Brock MANUAL DIFF REQ NO Normal [facility] Comment on above: Performed By: #### C BC #### [facility] [address] [place] [address] Dr. Seferino Brock MCH (RBC) [Entitic mass] 33.5 pg Normal 26.7-34.0 [facility] Comment on above: Performed By: #### C BC #### [facility] [address] [place] [address] Dr. Seferino Brock MCHC (RBC) [Mass/Vol] 34.7 g/dL Normal 29.9-35.2 [facility] Comment on above: Performed By: #### C BC #### [facility] [address] [place] [address] Dr. Seferino Brock MCV (RBC) [Entitic vol] 96.6 fL Normal 81.0-99.0 [facility] Comment on above: Performed By: #### C BC #### [facility] [address] [place] [address] Dr. Seferino Brock MONO # 0.4 103/ul Normal 0.3-0.8 [facility] Comment on above: Performed By: #### C BC #### [facility] [address] [address] [address] Seferino Brock Monocytes/100 WBC (Bld) 5.6 % Normal 1.7-12.0 [facility] Comment on above: Performed By: #### C BC #### [facility] [address] [place] [address] Dr. Seferino Brock NEUT # 5.2 103/ul Normal 1.4-6.5 [facility] Comment on above: Performed By: #### C BC #### [facility] [address] [place] [address] Dr. Seferino Brock Neutrophils/100 WBC (Bld) 70.0 % Normal 43.0-75.0 [facility] Comment on above: Performed By: #### C BC #### [facility] [address] [place] [address] Dr. Seferino Brock Platelet mean volume (Bld) [Entitic vol] 10.0 fL Normal 9.5-13.5 [facility] Comment on above: Performed By: #### C BC #### [facility] [address] [place] [address] Dr. Seferino Brock PLT 286 103/ul Normal 150-450 [facility] Comment on above: Performed By: #### C BC #### [facility] [address] [place] [address] Dr. Seferino Brock RBC 4.45 106/ul Normal 4.20-5.40 [facility] Comment on above: Performed By: #### C BC #### [facility] [address] [place] [address] Dr. Seferino Brock WBC 7.5 103/ul Normal 4.0-11.0 [facility] Comment on above: Performed By: #### C BC #### [facility] [address] [place] [address] HEAD WO CONon [...] DAYO UNLU Date: 2022-08-08 14:02 Normal [facility] PROF CHEM 8 (BAS METB)on Anion gap [Moles/Vol] 13.3 mmol/L Normal [facility] Comment on above: Performed By: #### B MP #### [facility] [address] [place] [address] Dr. Seferino Brock Calcium [Mass/Vol] 9.6 mg/dL Normal 8.5-10.1 [facility] Comment on above: Performed By: #### B MP #### [facility] [address] [place] [address] Dr. Seferino Brock Chloride [Moles/Vol] 102 mmol/L Normal 98-107 [facility] Comment on above: Performed By: #### B MP #### [facility] [address] [place] [address] Dr. Seferino Brock CO2 [Moles/Vol] 26.1 mmol/L Normal 21.0-32.0 [facility] Comment on above: Performed By: #### B MP #### [facility] [address] [place] [address] Dr. Seferino Brock Creatinine [Mass/Vol] 0.66 mg/dL Normal 0.55-1.02 [facility] Comment on above: Performed By: #### B MP #### [facility] [address] [address] [address] Seferino Brock EGFR-AF MAURITANIAN >60 Normal >=60 [facility] Comment on above: Performed By: #### B MP #### [facility] [id number] Seferino Brock EGFR-NON AF MAURITANIAN >60 Normal >=60 [facility] Comment on above: Performed By: #### B MP #### [facility] [address] [address] [address] Seferino Brock Glucose [Mass/Vol] 92 mg/dL Normal 74-106 [facility] Comment on above: Performed By: #### B MP #### [facility] [address] [place] [address] Dr. Seferino Brock Potassium [Moles/Vol] 4.4 mmol/L Normal 3.5-5.1 [facility] Comment on above: Performed By: #### B MP #### [facility] [address] [place] [address] Dr. Seferino Brock Sodium [Moles/Vol] 137 mmol/L Normal 136-145 [facility] Comment on above: Performed By: #### B MP #### [facility] [address] [place] [address] Dr. Seferino Brock Urea nitrogen [Mass/Vol] 6.0 mg/dL Critically low 7.0-18.0 [facility] Comment on above: Performed By: #### B MP #### [facility] [address] [place] [address] Dr. Seferino Brock Urea nitrogen/Creatinine [Mass ratio] 9.1 mg/mg Normal [facility] Comment on above: Performed By: #### B MP #### [facility] [id number] Seferino Brock Vital Signs Date Time Vital Sign Value Performing Clinician Facility 03-30-2024 13:23-0400 Body height 157.5 cm Rachel [facility]ONSALES [facility] 03-30-2024 13:23-0400 Body mass index (BMI) [Ratio] 26.34 kg/m2 Rachel Nienberg PA [facility] 03-30-2024 13:23-0400 Body weight 65.32 kg Rachel Mckeon PA Work Phone: [facility] [employer] [facility] 03-30-2024 13:23-0400 Diastolic blood pressure 75 mm[Hg] Rachel Kapoorenberg PA Work Phone: [facility] [employer] [facility] 03-30-2024 13:23-0400 Heart rate 80 /min Rachel Kapoorenberg PA Work Phone: [facility] [employer] [facility] 03-30-2024 13:23-0400 Respiratory rate 18 /min Rachel Kapoorenberg PA Work Phone: [facility] [employer] [facility] 03-30-2024 13:23-0400 SaO2% (BldA) [Mass fraction] 95 % Rachel Kapoorshelly PA Work Phone: [facility] [employer] 03-30-2024 13:23-0400 Systolic blood pressure 99 mm[Hg] Rachel Mckeon PA Work Phone: [facility] [employer] 03-29-2024 10:14-0400 Body height 160 cm Saurabhstarr Fuentes DO Work Phone: [facility] [employer] 03-29-2024 10:14-0400 Body mass index (BMI) [Ratio] 23.74 kg/m2 Saurabh Mary DO Work Phone: [facility] [employer] 03-29-2024 10:14-0400 Body weight 60.78 kg Saurabhstarr Albrightett DO Work Phone: [facility] [employer] 03-29-2024 10:14-0400 Diastolic blood pressure 78 mm[Hg] Saurabh Mary DO Work Phone: [facility] [employer] 03-29-2024 10:14-0400 Systolic blood pressure 128 mm[Hg] Saurabh Mary DO Work Phone: [facility] [employer] 08-21-2023 10:13-0400 Body height 157.5 cm Rachel Kapoorenberg PA Work Phone: [employer] 08-21-2023 10:13-0400 Body mass index (BMI) [Ratio] 28.35 kg/m2 Rachel Nienberg PA Work Phone[facility] 08-21-2023 10:13-0400 Body weight 70.31 kg Rachel Nienberg PA [facility] 08-21-2023 10:13-0400 Diastolic blood pressure 86 mm[Hg] Rachel Nienberg PA Work Phone: [facility] 08-21-2023 10:13-0400 Heart rate 82 /min Rachel Nienberg PA Work [facility] 08-21-2023 10:13-0400 Respiratory rate 18 /min Rachel Nienberg PA Work Phone[facility] 08-21-2023 10:13-0400 Systolic blood pressure 120 mm[Hg] Rachel Nienberg PA Work Phone[facility] 07-17-2023 09:30-0500 Diastolic blood pressure 93 mm[Hg] Rachel Nienberg PA Work Phone: [email or web address] 07-17-2023 09:30-0500 Systolic blood pressure 141 mm[Hg] Rachel Nienberg PA Work [facility] 07-17-2023 09:27-0500 Heart rate 92 /min Rachel Nienberg PA Work Phone: [facility] 07-17-2023 09:27-0500 Respiratory rate 16 /min Rachel Nienberg PA Work Phone: [email or web address] 07-17-2023 09:27-0500 SaO2% (BldA) [Mass fraction] 97 % Rachel Nienberg PA Work Phone: [facility] Encounters Encounter Date Encounter Type Care Provider Facility Start: 04-05-2024 End: 04-05-2024 Bamboo flowsestella Anders DPM Work Phone: [facility] Start: 04-05-2024 End: 04-05-2024 Bamboo flowsheet Aubrey S Martita DPM Work Phone: [facility] Start: 04-05-2024 End: 04-05-2024 Office outpatient visit 15 minutes Aubrey Wayne Martita DPM Work Phone: [facility] Comment on above: S/P foot surgery (Pr imary Dx); Right foot pain Start: 04-05-2024 End: 04-05-2024 ambulatory AUBREY Black MARTITA Not Available Start: 03-30-2024 End: 03-30-2024 Office outpatient visit 15 minutes Rachel Wayne shelly PA Work Phone: [facility] Comment on above: Lumbar spondylosis ( Primary Dx) Start: 03-30-2024 End: 03-30-2024 ambulatory [facility] Start: 03-29-2024 End: 03-29-2024 Bamboo flowsheet Saurabh Mary DO Work Phone: [facility] Start: 03-29-2024 End: 03-29-2024 Bamboo flowsheet Saurabh Mary DO Work Phone: [facility] Start: 03-29-2024 End: 03-29-2024 Office outpatient new 45 minutes Saurabh Mary DO Work Phone: [facility] Comment on above: Recurrent biliary co lic Start: 03-29-2024 End: 03-29-2024 ambulatory SAURABH MARY Not Available Start: 03-12-2024 End: 03-12-2024 ambulatory [facility] Start: 02-19-2024 End: 02-19-2024 ambulatory [facility] Start: 01-31-2024 End: 01-31-2024 ambulatory OFELIA MAXWELL [facility] Start: 01-30-2024 End: 01-30-2024 ambulatory [facility] Start: 01-08-2024 End: 01-08-2024 ambulatory RACHEL S [facility] Start: 12-31-2023 End: 12-31-2023 ambulatory AUBREY S RUSHER Not Available Start: 12-23-2023 End: 02-01-2024 ambulatory [facility] Wayne [facility] Start: 12-19-2023 End: 12-19-2023 ambulatory SHAILESH Olmos [facility] Start: 12-02-2023 End: 12-02-2023 ambulatory [facility] Start: 11-21-2023 End: 11-21-2023 ambulatory [facility] Wayne [facility] Start: 11-19-2023 End: 11-19-2023 ambulatory AUBREY S RUSHER Not Available Start: 11-17-2023 End: 11-17-2023 ambulatory [facility] Start: 11-17-2023 End: 11-17-2023 ambulatory [facility] Start: 11-13-2023 End: 11-13-2023 ambulatory [facility] Wayne [facility] Start: 11-05-2023 End: 11-05-2023 ambulatory AUBREY S RUSHER Not Available Start: 10-22-2023 End: 10-22-2023 ambulatory AUBREY S RUSHER Not Available Start: 10-10-2023 End: 10-10-2023 Evaluation and management of inpatient RACHELE DENNEY [facility] Start: 10-09-2023 End: 10-10-2023 Evaluation and management of inpatient AUBREY S [facility] Start: 10-09-2023 End: 10-09-2023 [facility] Start: 10-01-2023 Encounter for preprocedural laboratory examination [facility] Start: 10-01-2023 End: 10-01-2023 ambulatory PASTORA LEDESMA [facility] Start: 09-24-2023 End: 09-24-2023 ambulatory KAMINI Burt JADIEL [facility] Start: 09-24-2023 Encounter for other preprocedural examination [facility] Start: 09-24-2023 End: 09-24-2023 ambulatory AUBREY ANDERS Not Available Start: 09-23-2023 End: 09-23-2023 ambulatory [facility] Wayne [facility] Start: 09-09-2023 End: 09-09-2023 ambulatory AUBREY ANDERS Not Available Start: 08-21-2023 End: 08-21-2023 Office outpatient visit 15 minutes Rachel GONSALES Work Phone: [facility] Comment on above: Lumbar spondylosis ( Primary Dx) Start: 08-21-2023 End: 08-21-2023 ambulatory [facility] Wayne [facility] Start: 08-12-2023 End: 08-12-2023 ambulatory AUBREY ANDERS Not Available Start: 08-09-2023 End: 08-09-2023 ambulatory ALYCIA A ASAD [facility] Start: 08-08-2023 End: 08-08-2023 ambulatory [facility] Start: 08-08-2023 End: 08-08-2023 ambulatory [facility] Start: 07-17-2023 End: 07-17-2023 Office outpatient visit 15 minutes Rachel Mckeon PA Work Phone: 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 Facility: Procedures Date Procedure Procedure Detail Performing Clinician Start: 09-26-2022 H/O: surgery S/P nasal septoplasty Javed GONSALES Work Phone: Start: 06-27-2021 Adult depression screening assessment Rachel GONSALES Work Phone: Start: 03-12-2019 Colonoscopy Rachel GONSALES Work Phone: Plan of Treatment Date Care Activity Detail Author Start: 03-12-2029 Screening for malign ant neoplasm of colon Colonoscopy [facility] Start: 03-30-2025 Adult BMI Screening Adult BMI Screen ing [facility] Start: 03-30-2025 Tobacco Screening Tobacco Screening [facility] Start: 08-20-2024 Adult BMI Screening Adult BMI Screen ing [facility] Start: 08-20-2024 Tobacco Screening Tobacco Screening [facility] Start: 07-17-2024 Tobacco Screening Tobacco Screening [facility] Start: 05-20-2024 End: 05-20-2024 Patient encounter procedure 05/20/2024 1:30 PM EST Office Visit [facility] [address] [place] [phone] Rachel Mckeon PA [address] [place] [address] [facility] Start: 04-05-2024 End: 04-05-2024 Patient encounter procedure [facility] Comment on above: Arrived Start: 03-29-2024 End: 03-29-2024 Patient encounter procedure 03/29/2024 10:00 AM EDT Office Visit [facility] [address] [place] [address] Saurabh Fuentes DO [address] [place] [phone] Calculus of gallbladder with acute on chronic cholecystitis without obstruction [facility] Comment on above: Calculus of gallblad vida with acute on chronic cholecystitis without obstruction Start: 02-19-2024 Adult BMI Screening Adult BMI Screen ing [facility] Start: 02-01-2024 Influenza vaccination Influenza Vacc ine [facility] Start: 09-23-2023 End: 09-23-2023 Patient encounter procedure 09/23/2023 12:30 PM EDT Office Visit [facility] [address] [place] [phone] Rachel Mckeon PA [address] [place], [place] [id number] [facility] Start: 08-21-2023 End: 08-21-2023 Patient encounter procedure 08/21/2023 9:45 AM EDT Office Visit [facility] [address] [place] [id number] Rachel Mckeon PA [address] [place], [place] [id number] [facility] Start: 08-08-2023 End: 08-08-2023 Admission to same day surgery center 08/08/2023 9:07 AM EST - 08/08/2023 9:12 AM EST Surgery [facility] [address] [place] [place] [phone] Shailesh Vasques MD [address] [place], [place] [id number] INJECTION BURSA SMALL JOINT Left 1st CMC [ (CPT )] [facility] Comment on above: INJECTION BURSA SMAL L JOINT Left 1st CMC [ (CPT )] Start: 08-08-2023 End: 08-08-2023 Arthrocentesis aspir&/inj small jt/bursa w/o us INJECTION BURSA SMALL JOINT 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 08/08/2023 9:07 AM EST [facility] Start: 08-08-2023 Subsequent hospital visit by physician 08/08/2023 9:07 AM EST Hospital Encounter [facility] [address] [place] [phone] Shailesh Vasques MD [address] [place] [address] [facility] Start: 06-27-2022 Depression Screening Depression [facility] Start: 2020 Administration of varicella zoster vaccine Zoster (Shingles) Vaccine (1 of 2) [facility] Start: 12-26-1991 Screening for malign ant neoplasm of cervix Pap Smear [facility] Start: 1989 DTaP,Tdap and Td Vaccines (1 - Tdap) DTaP,Tdap and Td Vaccines (1 - Tdap) [facility] Start: 1988 Adult BMI Follow Up Plan Adult BMI F ollow Up Plan [facility] Start: 1970 Tobacco Counseling Tobacco Counselin elysia [facility] Immunizations Immunization Date Immunization Notes Care Provider Fa [facility] 03-19-2023 Influenza, injectabl e, Madin [place] Canine Kidney, preservative free, quadrivalent Saurabh Fuentes DO Work Phone: [facility] 03-19-2023 influenza virus vaccine, unspecified formulation Rachel GONSALES Work Phone: [facility] 04-15-2022 Influenza, injectabl e, Madin [place] Canine Kidney, preservative free, quadrivalent Saurabh Mary DO Work Phone: [facility] 03-27-2020 influenza, injectabl e, quadrivalent, preservative free Saurabh Mary DO Work Phone: [facility] 04-01-2018 Influenza, injectabl e, Madin [place] Canine Kidney, preservative free, quadrivalent Saurabh Mary DO Work Phone: [facility] Healthcare Payers Date Payer Category Payer Medicaid [id number] 2022 Medicaid [id number] 1970 Unknown [id number] 2.16.84 0.1.657695.3.579.2.593 1970 Unknown [id number] 2.16.8 40.1.949332.3.579.2.1285 1970 Unknown [id number] 2.16.8 40.1.662492.3.579.2.1285 1970 Unknown [id number] 2.16.8 40.1.453678.3.579.2.1285 1970 Unknown [id number] 2.16.8 40.1.826176.3.579.2.1285 1970 Unknown [id number] 2.16.8 40.1.095270.3.579.2.1285 1970 Unknown [id number] 2.16.8 40.1.181070.3.579.2.1285 1970 Unknown [id number] 2.16.8 40.1.338117.3.579.2.1285 1970 Unknown [id number] 2.16.8 40.1.329128.3.579.2.1285 1970 Unknown [id number] 2.16.8 40.1.047861.3.579.2.1285 1970 Unknown [id number] 2.16.8 40.1.570114.3.579.2.1285 1970 Unknown [id number] 2.16.8 40.1.331908.3.579.2.1285 1970 Unknown [id number] 2.16.8 40.1.496942.3.579.2.1285 1970 Unknown [id number] 2.16.8 40.1.251767.3.579.2.1285 1970 Unknown [id number] 2.16.8 40.1.900618.3.579.2.1285 1970 Unknown [id number] 2.16.8 40.1.364855.3.579.2.1285 1970 Unknown [id number] 2.16.8 40.1.375591.3.579.2.1285 1970 Unknown [id number] 2.16.8 40.1.537609.3.579.2.1285 1970 Unknown [id number] 2.16.8 40.1.890570.3.579.2.1285 1970 Unknown [id number] 2.16.8 40.1.994647.3.579.2.1285 1970 Unknown [id number] 2.16.8 40.1.704756.3.579.2.1285 1970 Unknown [id number] 2.16.8 40.1.032377.3.579.2.1285 1970 Unknown [id number] 2.16.8 40.1.249190.3.579.2.1285 1970 Unknown [id number] 2.16.8 40.1.042768.3.579.2.1285 1970 Unknown [id number] 2.16.8 40.1.530375.3.579.2.1285 1970 Unknown [id number] 2.16.8 40.1.686494.3.579.2.1285 1970 Unknown [id number] 2.16.8 40.1.719225.3.579.2.1285 1970 Unknown [id number] 2.16.8 40.1.175776.3.579.2.1285 1970 Unknown [id number] 2.16.8 40.1.010674.3.579.2.1285 1970 Unknown [id number] 2.16.8 40.1.209912.3.579.2.1285 1970 Unknown [id number] 2.16.8 40.1.747250.3.579.2.1285 1970 Unknown [id number] 2.16.8 40.1.694400.3.579.2.1285 1970 Unknown [id number] 2.16.8 40.1.415025.3.579.2.1285 1970 Unknown [id number] 2.16.8 40.1.882179.3.579.2.1285 1970 Unknown [id number] 2.16.8 40.1.966893.3.579.2.1285 1970 Unknown [id number] 2.16.8 40.1.186134.3.579.2.1285 1970 Unknown [id number] 2.16.84 0.1.284537.3.579.2.1285 1970 Unknown [id number] 2.16.84 0.1.350498.3.579.2.1285 1970 Unknown [id number] 2.16.84 0.1.087066.3.579.2.1285 1970 Unknown [id number] 2.16.84 0.1.763491.3.579.2.1285 1970 Unknown [id number] 2.16.84 0.1.810283.3.579.2.1285 1970 Unknown [id number] 2.16.84 0.1.737495.3.579.2.1286 1970 Unknown [id number] 2.16.84 0.1.778202.3.579.2.1286 1970 Unknown [id number] 2.16.84 0.1.096603.3.579.2.1286 1970 Unknown [id number] 2.16.84 0.1.350574.3.579.2.1286 1970 Unknown [id number] 2.16.84 0.1.382045.3.579.2.1286 1970 Unknown [id number] 2.16.84 0.1.795116.3.579.2.1258 1970 Unknown [id number] 2.16.84 0.1.614670.3.579.2.9 1970 Unknown [id number] 2.16.84 0.1.340113.3.579.2.1258 1970 Unknown [id number] 2.16.84 0.1.050425.3.579.2.1258 1970 Unknown [id number] 2.16.84 0.1.328291.3.579.2.1258 1970 Unknown [id number] 2.16.84 0.1.171713.3.579.2.9 1970 Unknown [id number] 2.16.84 0.1.827827.3.579.2.1258 1970 Unknown [id number] 2.16.84 0.1.610514.3.579.2.125 1970 Unknown [id number] 2.16.84 0.1.831850.3.579.2.1258 1970 Unknown [id number] 2.16.84 0.1.476239.3.579.2.1258 1970 Unknown [id number] 2.16.84 0.1.380467.3.579.2.1259 1970 Unknown [id number] 2.16.84 0.1.312355.3.579.2.1259 1970 Unknown [id number] 2.16.84 0.1.353800.3.579.2.1259 Social History Date Type Detail Facility Start: 06-02-1990 End: 03-29-2024 Tobacco smoking status NHIS Occasional tobacco smoker [facility] Start: 06-02-1990 End: 06-02-2018 History of tobacco use Cigarette Smoker [facility] Start: 08-29-2022 End: 12-31-2023 Cigarettes smoked current (pack per day) - Reported 0.3 [facility] Start: 08-29-2022 End: 03-29-2024 Tobacco use and exposure Smokeless tobacco non-user [facility] Start: 07-17-2023 End: 03-30-2024 Alcohol intake Current non-drinker of alcohol (finding) [facility] Start: 07-17-2023 End: 12-31-2023 Tobacco use panel [facility] Adolescent depressio n screening assessment 0 [facility] Start: 1970 Sex Assigned At Not on file [facility] Start: 12-31-2023 End: 04-05-2024 Alcoholic beverage intake Lifetime non-drinker (finding) [facility] Start: 01-05-2015 Sex Female (finding) [facility] Medical Equipment Procedure Code Equipment Code Equipment Origin al Text Equipment Identifier Dates Graft Sft Tis 2.5x2.5cm [employer] [place] Repr - Sna - [id number] Start: 09-19-2022 Prostep Mis Bunionette Implant Set Size Small [id number] Start: 10-09-2023 Clinical Notes 07-17-2023 to 04-05-2024 Aubrey Anders DPM - 04/05/2024 10:00 AM ILDA Toscano - 03/30/2024 1:15 PM Zoila Fuentes DO - 03/29/2024 10:00 AM ILDA Richard - 08/21/2023 9:45 AM EDT Note Date & Type Note Facility 04-05-2024 History of Present illness Narrative Images from the original note were not included. Subjective Patient ID: Robyn Rahman is a 53 y.o. female who presents for Post-op (Established pt presents today for POV#4, DOS: 10/09/23, right foot. Pt relates pinky toe will become swollen and red sometimes, but otherwise doing well. ). HPI Date of surgery 10/09/2023: Osteotomy 5th metatarsal with tailor's bunionectomy, hammertoe repair 5th toe with open flexor tenotomy, right foot Patient presents to clinic postoperatively. Patient still notes some mild sensitivity over the 5th toe especially when she wears dress shoes. Patient still notes swelling in the 5th toe but otherwise she has no issues. Review of Systems Constitutional: Negative for appetite change. Respiratory: Negative for chest tightness and shortness of breath. Cardiovascular: Negative for chest pain. Musculoskeletal: Positive for arthralgias and gait problem. Skin: Negative for color change and wound. Neurological: Negative for weakness and numbness. Psychiatric/Behavioral: Negative for agitation and behavioral problems. Hematological: Does not bruise/bleed easily. Endocrine: Negative for cold intolerance and heat intolerance. Allergic/Immunologic: Negative for immunocompromised state. Past medical History Past Medical History: Diagnosis Date Anxiety 2019 Arthritis Asthma ([facility]) 2021 Depression ([facility]) Hypertension ([facility]) Menopausal symptoms Personal history of other medical treatment nerve blocks from pain management for lumbar and hip issues Medications Current Outpatient Medications: Miroslava Allergy 180 MG tablet, 1 (one) time each day at the same time, Disp: , Rfl: ARIPiprazole (Abilify) 5 MG tablet, 1 (one) time each day at the same time, Disp: , Rfl: baclofen (Lioresal) 20 MG tablet, PRN, Disp: , Rfl: busPIRone (Buspar) 30 MG tablet, every 12 (twelve) hours, Disp: , Rfl: citalopram (CeleXA) 40 MG tablet, Take 20 mg by mouth in the morning., Disp: , Rfl: clotrimazole (Lotrimin) 1 % cream, APPLY DAILY TO SKIN TO AFFECTED AREA TWICE A DAY FOR 2 WEEKS, Disp: , Rfl: cyanocobalamin (Vitamin B-12) 1000 MCG tablet, Take 1,000 mcg by mouth Daily, Disp: , Rfl: fluticasone (Flonase) 50 MCG/ACT nasal spray, SPRAY 1 SPRAY INTO EACH NOSTRIL TWICE A DAY FOR 30 DAYS, Disp: , Rfl: hydrOXYzine pamoate (Vistaril) 50 MG capsule, TAKE 1-2 CAPSULES BY MOUTH EVERY 12 HRS NEEDED FOR PANIC, Disp: , Rfl: ibuprofen 800 MG tablet, TAKE 1 TABLET BY MOUTH THREE TIMES A DAY NEEDED WITH FOOD OR MILK for 30, Disp: , Rfl: lamoTRIgine (LaMICtal) 100 MG tablet, 1 (one) time each day at the same time, Disp: , Rfl: lisinopril 5 MG tablet, 1 (one) time each day at the same time, Disp: , Rfl: Meclizine HCl 25 MG chewable tablet, Chew 25 mg 3 (three) times a day as needed, Disp: , Rfl: methylPREDNISolone (Medrol Dospak) 4 MG tablets, Take as directed on package., Disp: 21 tablet, Rfl: 0 montelukast (Singulair) 10 MG tablet, Take 1 tablet by mouth Daily, Disp: , Rfl: Multiple Vitamin (Multi Vitamin) tablet, TAKE 1 TABLET BY MOUTH EVERY DAY FOR 30 DAYS for 30, Disp: , Rfl: mupirocin (Bactroban) 2 % ointment, Applied intranasally bilaterally 2 times daily, Disp: , Rfl: omega-3 (Fish Oil) 500 MG capsule, 1 capsule every 8 (eight) hours, Disp: , Rfl: prazosin (Minipress) 2 MG capsule, 1 (one) time each day at the same time, Disp: , Rfl: traZODone (Desyrel) 150 MG tablet, 1 (one) time each day at the same time, Disp: , Rfl: triamcinolone (Kenalog) 0.5 % cream, 1 Application every 12 (twelve) hours, Disp: , Rfl: Turmeric 500 MG capsule, 1 (one) time each day at the same time, Disp: , Rfl: Allergies Dog epithelium (canis lupus familiaris), Dust mite extract, Mixed ragweed, Pollen extract, and Sulfamethoxazole-trimethoprim Past Surgical History Past Surgical History: Procedure Laterality Date CARPAL TUNNEL RELEASE Left 12/08/2017 CT ANGIOGRAM HEART CORONARY 06/12/2021 CT ANGIOGRAM TAVR 06/12/2021 OSTEOTOMY Right 10/09/2023 right foot TUBAL LIGATION US GUIDED BIOPSY SENTINEL NODE CORE SUPERFICIAL NOT FNA 12/28/2020 US GUIDED BIOPSY SENTINEL NODE CORE SUPERFICIAL NOT FNA 12/28/2020 Family History Family History Problem Relation Name Age of Onset Diabetes Mother Krista Heart disease Mother Krista Arthritis Mother Krista Asthma Mother Krista Cancer Mother Krista COPD Mother Krista Objective Physical Exam Constitutional: Comments: Presents to clinic ambulating unassisted in [facility]. HENT: Head: Normocephalic and atraumatic. Cardiovascular: Pulses: Normal pulses. Pulmonary: Effort: Pulmonary effort is normal. No respiratory distress. Abdominal: Palpations: There is no mass. Musculoskeletal: Cervical back: No rigidity. Comments: Right foot: Incisions remain well coapted. There is still some minimal edema to the 5th toe. No tenderness to palpation today. Skin: Capillary Refill: Capillary refill takes less than 2 seconds. Findings: No lesion or rash. Neurological: Mental Status: She is alert. Comments: No loss of protective sensation, gross sensation intact. Psychiatric: Mood and Affect: Mood normal. Behavior: Behavior normal. Assessment/Plan ICD-10-CM 1. S/P foot surgery Z98.890 2. Right foot pain M79.671 Patient examined and evaluated. At this point she seems to be improving quite readily. Seems like she has no pain on a regular basis and symptoms seem to be quite improved compared to preop. She does still have some sensitivity when wearing flats or dress shoes. I recommend that she wear wide shoes to reduce rubbing and impingement on the 5th toe. No restrictions at this point. She will follow up with me as needed. This note was created with the assistance of a speech recognition program. While intending to generate a timely document that accurately reflects the content of the visit, no guarantee can be provided that every grammatical or spelling mistake has been or will be identified or corrected. Thank you for your understanding. Aubrey Anders DPM documented in this encounter [facility] 03-30-2024 History of Present illness Narrative [facility] [address] [place] [address] Patient: Robyn Rahman Sex: female : 1970 Age: 53 y.o. 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, PROVIDER NETWORK ANALYST-SUPER[employer]OR [employer] 03/30/2024 Robyn Rahman is here for a(n) post procedure follow up T 12/07 MEÑO 85-90% relief that continues. Patient states pain is improved since injection. Now is is just a constant dull ache. Rates pain anywhere from 3-4/10. Date of onset of pain: 10 years , pain has lasted greater than 3 months. Pain scale before treatment: 4/10 Pre-op pain score: 6/10 Percentage of relief after and duration: 85-90% relief that continues today Pain scale after treatment: 210 Chief Complaint Patient presents with Back Pain HPI: Patient December-Jan Thoracic spine Physical Therapy at [facility] with continued HEP 3 times per week with no relief PT/HEP 09/2017 w/min relief (@6sessions) for back Back: 12/01/20 Caudal MEÑO with 65% relief 12/21/06/14/2022 caudal MEÑO with 90% relief . 12/29/20 Denny L1/2, [...] 1/2 2/3 radiofrequency ablations with 85%-90% relief 03/12/24 T 12/07 85-90% relief that continues through FU HIP left hip injection on 06/08/2021 w/ 50% relief. left hip injection on 09/14/2021 with 85-90% relief 04/05/2022 Left Hip Injection 90% relief. 01/31/2023 Left hip injection with 50% relief Hand: 07/19/22 Left 1st CMC injection with 80% relief reported 04/11/23 Left 1st CMC joint inj with 90% relief 08/08/2023 Left CMC with 60-70% initial relief and 40% lasting relief. 02/19/2024 bilateral 1st carpometacarpal joint injection with 100% relief on right and 90% relief on left . Back Pain This is a chronic problem. The current episode started more than 1 year ago (10+ years). The problem occurs constantly. The problem has been gradually improving since onset. The pain is present in the thoracic spine and lumbar spine. The quality of the pain is described as aching (dull). The pain does not radiate. Pain scale: thoracic 3/10 lower back 4/10. The pain is moderate. The pain is The same all the time. Exacerbated by: sitting, standing, walking, stairs, cold, household activities such as laundry Stiffness is present In the morning, at night and all day. Associated symptoms include numbness (back- lumbar) and weakness (bilateral hands; unable to open things). Pertinent negatives include no abdominal pain, bladder incontinence, bowel incontinence, chest pain, fever, leg pain or tingling. Treatments tried: PT 09/2017 w/min relief. Danie, Flexeril, NSAID(Mobic, Motrin),Bengay,Lidocaine Patch,Yoga w/ slight relief. The treatment provided mild relief. Hand Pain Incident onset: 07/2020. There was no injury mechanism. The pain is present in the left hand and right hand (left thumb and wrist.). The quality of the pain is described as aching, shooting and stabbing (sharp shooting to thumb and wrist on left hand). The pain does not radiate. The pain is at a severity of 3/10. The pain is moderate. The pain has been Fluctuating since the incident. Associated symptoms include muscle weakness (bilateral hands- unable to open things) and numbness (back- lumbar). Pertinent negatives include no chest pain or tingling. Exacerbated by: movement. Treatments tried: uses current [...] from general anesthesia PTSD (post-traumatic stress disorder) Shortness of breath Sinusitis, chronic Visual impairment glasses Past Surgical History: Procedure Laterality Date Bilateral Lumbar L4/5, L5/S1 medial branch block #2 Bilateral 12/05/2017 Performed by Shailesh Vasques MD at [facility] BREAST BIOPSY Left 2003 BENIGN EXCISIONAL BUNIONECTOMY Bilateral CARPAL TUNNEL RELEASE Right COLONOSCOPY N/A 03/12/2019 Performed by Reginald South MD at [facility] DEROTATION ARTHROPLASTY Right 10/09/2023 Performed by Aubrey Anders DPM at [facility] EPIDURAL CAUDAL STEROID N/A 03/07/2023 Performed by Shailesh Vasques MD at [facility] PAIN INJECTION BLOCK EPIDURAL CAUDAL STEROID N/A 06/14/2022 Performed by Shailesh Vasques MD at [facility] INJECTION BLOCK EPIDURAL CAUDAL STEROID N/A 12/21/2021 Performed by Shailesh Vasques MD at [facility] IN[facility] BLOCK EPIDURAL CAUDAL STEROID N/A 10/12/2021 Performed by Shailesh Vasques MD at [facility] INJE[facility] BLOCK EPIDURAL CAUDAL STEROID N/A 04/13/2021 Performed by Shailesh Vasques MD at [facility] INJECTION BLOCK EPIDURAL CAUDAL STEROID N/A 12/01/2020 Performed by Shailesh Vasques MD at [facility] IN[facility] BLOCK EPIDURAL CAUDAL STEROID N/A 06/30/2020 Performed by Shailesh Vasques MD at [facility] IN[facility] BLOCK EPIDURAL STEROID THORACIC: T 7/8 meño N/A 03/12/2024 Performed by Shailesh Vasques MD at [facility] NERVE KNEE right genicular Right 10/27/2020 Performed by Shailesh Vasques MD at [facility] BLOCK NERVE MEDIAL BRANCH: bilat L 1/2 2/3 Bilateral 08/17/2021 Performed by Shailesh Vasques MD at [facility] INJE[facility] BLOCK NERVE MEDIAL BRANCH: bilat L /2 2/3 Bilateral 12/29/2020 Performed by Shailesh Vasques MD at [facility] INJECTION BURSA LARGE JOINT: left 1st CMC Left 07/19/2022 Performed by Shailesh Vasques MD at [facility] INJECTION BURSA LARGE JOINT: left hip Left 01/31/2023 Performed by Shailesh Vasques MD at [facility] INJECTION BURSA LARGE JOINT: left hip Left 04/05/2022 Performed by Shailesh Vasques MD at [facility] INJECTION BURSA LARGE JOINT: left hip Left 09/14/2021 Performed by Shailesh Vasques MD at [facility] INJECTION BURSA LARGE JOINT: left hip Left 06/08/2021 Performed by Shailesh Vasques MD at [facility] INJECTION BURSA LARGE JOINT: left hip Left 08/11/2020 Performed by Shailesh Vasques MD at [facility] INJECTION BURSA SMALL JOINT Bilat 1st CMC Bilateral 01/30/2024 Performed by Shailesh Vasques MD at [facility] INJECTION BURSA SMALL JOINT Left 1st CMC Left 08/08/2023 Performed by Shailesh Vasques MD at [facility] INJECTION BURSA SMALL JOINT Left 1st CMC Left 04/11/2023 Performed by Shailesh Vasques MD at [facility] INJECTION BURSA SMALL JOINT left 1st cmc Left 09/22/2020 Performed by Shailesh Vasques MD at [facility] IN[facility] CAUDAL EPIDURAL WITH CATHETER, STEROID N/A 01/28/2020 Performed by Shailesh Vasques MD at [facility] INJECTION CAUDAL EPIDURAL WITH CATHETER, STEROID N/A 10/15/2019 Performed by Shailesh Vasques MD at [facility] IN[facility]CTION CAUDAL EPIDURAL WITH CATHETER, STEROID N/A 03/19/2019 Performed by Shailesh Vasques MD at [facility] INJECTION CAUDAL EPIDURAL WITH CATHETER, STEROID N/A 12/21/2018 Performed by Shailesh Vasques MD at [facility] INJECTION CAUDAL EPIDURAL WITH CATHETER, STEROID N/A 09/14/2018 Performed by Shailesh Vasques MD at [facility] INJECTION CAUDAL EPIDURAL WITH CATHETER, STEROID N/A 08/14/2018 Performed by Shailesh Vasques MD at [facility] LARGE JOINT BURSA: left hip Left 02/25/2020 Performed by Shailesh Vasques MD at [facility] INJECTION LARGE JOINT BURSA: left hip Left 01/29/2019 Performed by Shailesh Vasques MD at [facility] INJECTION LARGE JOINT BURSA: right knee Right 05/05/2020 Performed by Shailesh Vasques MD at [facility] INJECTION MEDIAL BRANCH NERVE BLOCK Bilateral L 4/5, 5/1 Bilateral 11/14/2017 Performed by Shailesh Vasques MD at [facility] INJECTION SI JOINT LEFT Left 09/19/2017 Performed by Shailesh Vasques MD at [facility] Left sacroiliac joint injection x1 Left 08/29/2017 Performed by Shailesh Vasques MD at [facility] OSTEOTOMY SUNNY METATARSAL Right 10/09/2023 Performed by Aubrey Anders DPM at [facility] RADIO FREQUENCY ABLATION Left SI joint Left 10/10/2017 Performed by Shailesh Vasques MD at [facility] RADIO FREQUENCY ABLATION: left SI Left 06/19/2018 Performed by Shailesh Vasques MD at [facility] RADIOFREQUENCY ABLATION SPINAL: right L 1/2 2/3 Right 02/15/2022 Performed by Shailesh Vasques MD at [facility] RADIOFREQUENCY ABLATION SPINAL: left L 1/2 2/3 Left 02/01/2022 Performed by Shailesh Vasques MD at [facility] RADIOFREQUENCY ABLATION SPINAL: left L 1/2, 2/3 Left 06/20/2023 Performed by Shailesh Vasques MD at [facility] RADIOFREQUENCY ABLATION SPINAL: right L 1/2, 2/3 Right 05/23/2023 Performed by Shailesh Vasques MD at [facility] RADIOFREQUENCY ABLATION SPINAL: left L45 51rfa Left 01/23/2018 Performed by Shailesh Vasques MD at [facility] RADIOFREQUENCY ABLATION SPINAL: right L45 51rfa Right 01/12/2018 Performed by Shailesh Vasques MD at [facility] RELEASE CARPAL TUNNEL Left 12/08/2017 Performed by Mat Santiago DO at [facility] RESECTION SUBMUCOSAL NASAL Bilateral 09/19/2022 Performed by Ravi Jimenez MD PhD at [facility] SEPTOPLASTY Bilateral 09/19/2022 Performed by Ravi Jimenez MD PhD at [facility] TENOTOMY TENDON SINGLE TOE Right 10/09/2023 Performed by Aubrey Anders DPM at [facility] Allergies Allergen Reactions Bactrim [Sulfamethoxazole-Trimethoprim] Hives Family [...] file Tobacco Use Smoking status: Some Days Current packs/day: 0.00 Types: Cigarettes Last attempt to quit: 2019 Years since quittin.8 Smokeless tobacco: Never Vaping Use Vaping status: Never Used Substance and Sexual Activity Alcohol use: No Drug use: Not Currently Comment: CBD oil in coffee if needed for pain Sexual activity: Defer Partners: Male control/protection: Post-menopausal Other Topics Concern Coffee Not Asked Tea Not Asked Carbonated Beverages Not Asked Chocolate Not Asked Social History Narrative Not on file Social Drivers of Health Financial Resource Strain: Not on file Food Insecurity: No Food Insecurity (03/30/2024) Hunger Screening Food Insecurity - Worry: Never True Food Insecurity - Inability: Never True Transportation Needs: Not on file Physical Activity: Not on file Stress: Not on file Social Connections: Not on file Interpersonal Safety: Not on file Housing Instability: Not on file Review of Systems Constitutional: Negative. Negative for chills, fatigue and fever. HENT: Negative. Negative for congestion and sore throat. Eyes: Negative. Respiratory: Negative. Negative for cough and shortness of breath. Cardiovascular: Negative. Negative for chest pain. Gastrointestinal: Negative. Negative for abdominal pain, bowel incontinence, constipation and diarrhea. Endocrine: Negative. Genitourinary: Negative. Negative for bladder incontinence. Musculoskeletal: Positive for back pain. Skin: Negative. Allergic/Immunologic: Negative. Neurological: Positive for weakness (bilateral hands; unable to open things) and numbness (back- lumbar). Negative for tingling. Hematological: Negative. Psychiatric/Behavioral: Negative. Vital Signs: BP 99/75 (BP Site: Right Arm, BP Postition: Sitting) Pulse 80 Resp 18 Ht 157.5 cm (5' 2 ) Wt 65.3 kg (144 lb) LMP (LMP Unknown) Comment: no period over a year SpO2 95% BMI 26.34 kg/m Physical Exam: GENERAL - Healthy patient [...] for this visit: Lumbar spondylosis Monitor Follow up 6-8 weeks The medications I have prescribed have [...] prescribe any controlled substance from this practice. Treatment plans discussed but not opted for at this time: Lumbar epidural steroid injection. Pain is under adequate control. It is noted that the patient did have good response from the previously performed procedure. It is felt that the patient would benefit from an additional procedure of the same nature in that the same symptoms have returned. It is hopeful that this additional injection will provide additional benefit and duration when combined with the previous injection. The spine model was demonstrated and MRI was reviewed and used to explain the condition. OARRS: Reviewed. Scribe Statement: Scribed for and in the presence of ILDA LOVELL by Samantha Schulz CNA. Provider Statement: I, ILDA LOVELL, personally performed the services described in the documentation, as scribed by Samantha Schulz CNA in my presence, and it is both accurate and complete. Samantha Schulz CNA 03/30/24 [id number] ILDA Lovell 04/01/24 [id number] documented in this encounter [email or web address] 03-29-2024 History of Present illness Narrative General Surgery H&P Patient's Name/Date of : Robyn Rahman / 1970 (53 y.o.) Reason for consult: Diagnosis Plan 1. Recurrent biliary colic Ambulatory referral to General Surgery Robyn Rahman is a 53 y.o. female presents with chief complaint of Cholelithiasis (Patient has had abdominal pain for over a week . Was seen at [facility] ER last week. Scan showed gall stones. ) Denies any current abdominal pain but if she eats a fatty/greasy meal she notices pain in her RUQ. +biliary colic. Denies hx of excessive weight loss. Denies fevers, chills, or sweats. Denies nausea or vomiting. Discussed surgery and risks for robotic laparoscopic cholecystectomy procedure. Patient would like to proceed with surgery. SUBJECTIVE: MEDICATIONS: ALLERGIES Current Outpatient Medications Medication Instructions Miroslava Allergy 180 MG tablet Every 24 hours ARIPiprazole (Abilify) 5 MG tablet Every 24 hours baclofen (Lioresal) 20 MG tablet PRN busPIRone (Buspar) 30 MG tablet Every 12 hours citalopram (CELEXA) 20 mg, Daily RT clotrimazole (Lotrimin) 1 % cream APPLY DAILY TO SKIN TO AFFECTED AREA TWICE A DAY FOR 2 WEEKS cyanocobalamin (VITAMIN B-12) 1,000 mcg, Daily fluticasone (Flonase) 50 MCG/ACT nasal spray SPRAY 1 SPRAY INTO EACH NOSTRIL TWICE A DAY FOR 30 DAYS hydrOXYzine pamoate (Vistaril) 50 MG capsule TAKE 1-2 CAPSULES BY MOUTH EVERY 12 HRS NEEDED FOR PANIC ibuprofen 800 MG tablet TAKE 1 TABLET BY MOUTH THREE TIMES A DAY NEEDED WITH FOOD OR MILK for 30 lamoTRIgine (LaMICtal) 100 MG tablet Every 24 hours lisinopril 5 MG tablet Every 24 hours Meclizine HCl 25 mg, 3 times daily PRN methylPREDNISolone (Medrol Dospak) 4 MG tablets Take as directed on package. montelukast (Singulair) 10 MG tablet 1 tablet, Daily Multiple Vitamin (Multi Vitamin) tablet TAKE 1 TABLET BY MOUTH EVERY DAY FOR 30 DAYS for 30 mupirocin (Bactroban) 2 % ointment Applied intranasally bilaterally 2 times daily omega-3 (Fish Oil) 500 MG capsule 1 capsule, Every 8 hours prazosin (Minipress) 2 MG capsule Every 24 hours traZODone (Desyrel) 150 MG tablet Every 24 hours triamcinolone (Kenalog) 0.5 % cream 1 Application, Every 12 hours Turmeric 500 MG capsule Every 24 hours Allergies Allergen Reactions Dog Epithelium (Canis Lupus Familiaris) Unknown Dust Mite Extract Unknown Mixed Ragweed Unknown Pollen Extract Unknown Sulfamethoxazole-Trimethoprim Hives Other Reaction(s): Hives , Difficulty breathing, rash/swelling PAST MEDICAL HISTORY: SOCIAL HISTORY SURGICAL HISTORY: Past Medical History: Diagnosis Date Anxiety 2020 Arthritis Asthma ([facility]) 2021 Depression ([facility]) Hypertension ([facility]) Menopausal symptoms Personal history of other medical treatment nerve blocks from pain management for lumbar and hip issues Social History Tobacco Use Smoking status: Some Days Current packs/day: 0.25 Average packs/day: 0.3 packs/day for 33.8 years (8.5 ttl pk-yrs) Types: Cigarettes Start date: 06/02/1990 Smokeless tobacco: Never Vaping Use Vaping status: Never Used Substance Use Topics Alcohol use: Never Drug use: Never Past Surgical History: Procedure Laterality Date CARPAL TUNNEL RELEASE Left 12/08/2017 CT ANGIOGRAM HEART CORONARY 06/12/2021 CT ANGIOGRAM TAVR 06/12/2021 OSTEOTOMY Right 10/09/2023 right foot TUBAL LIGATION US GUIDED BIOPSY SENTINEL NODE CORE SUPERFICIAL NOT FNA 12/28/2020 US GUIDED BIOPSY SENTINEL NODE CORE SUPERFICIAL NOT FNA 12/28/2020 Family History Problem Relation Name Age of Onset Diabetes Mother Krista Heart disease Mother Krista Arthritis Mother Krista Asthma Mother Krista Cancer Mother Krista COPD Mother Krista Allergies Allergen Reactions Dog Epithelium (Canis Lupus Familiaris) Unknown Dust Mite Extract Unknown Mixed Ragweed Unknown Pollen Extract Unknown Sulfamethoxazole-Trimethoprim Hives Other Reaction(s): Hives , Difficulty breathing, rash/swelling Past Surgical History: Procedure Laterality Date CARPAL TUNNEL RELEASE Left 12/08/2017 CT ANGIOGRAM HEART CORONARY 06/12/2021 CT ANGIOGRAM TAVR 06/12/2021 OSTEOTOMY Right 10/09/2023 right foot TUBAL LIGATION US GUIDED BIOPSY SENTINEL NODE CORE SUPERFICIAL NOT FNA 12/28/2020 US GUIDED BIOPSY SENTINEL NODE CORE SUPERFICIAL NOT FNA 12/28/2020 Tobacco Use: High Risk (03/12/2024) Received from [email or web address] Patient History Smoking Tobacco Use: Some Days Smokeless Tobacco Use: Never Passive Exposure: Not on file Alcohol Use: Not on file Depression: Not at risk (06/27/2021) Received from [email or web address], [email or web address] PHQ-2 Total Score: 0 Physical Activity: Not on file REVIEW OF SYMPTOMS: Review of Systems All other systems reviewed and are negative. 10 systems were reviewed. Positives noted above. Remainder are negative per CMS guidelines OBJECTIVE: Visit Vitals BP 128/78 Ht 5' 3 Wt 134 lb BMI 23.74 kg/m Smoking Status Some Days BSA 1.64 m Physical Exam Vitals reviewed. General: AAOx3, NAD Head: atraumatic normocephalic Neck: trachea midline. No masses or lymphadenopathy Heart: Regular rate and rhythm Lungs: equal chest rise and fall, non labored breathing Abdomen: soft, nontender, and non distended Ext: motor 5/5 all extremities with no gross deformities Psych: alert and oriented, behavior appropriate ASSESSMENT AND PLAN: Assessment/Plan Diagnoses and all orders for this visit: Recurrent biliary colic Patient informed of the risks of robotic laparoscopic cholecystectomy procedure which include but not limited to bleeding, scarring, damage to nearby structures, chronic pain, wound healing issues, possible need for more procedures and risks of anesthesia. Patient understood risks and signed informed consent. Will schedule at patient's earliest convenience. Thank you, Teofilo Fuentes DO documented in this encounter [facility] 08-21-[facility] History of Present illness Narrative [facility] [address] [place] [address] Patient: Robyn Rahman Sex: female : 1970 Age: 52 y.o. 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 APRN-DEXTER 08/21/2023 Robyn Rahman is here for a(n) post procedure follow up 08/08/2023 Left CMC with 60-70% initial relief and 40% lasting relief. . . Date of onset of pain: few years , pain has lasted greater than 3 months. Pain scale before treatment: 5/10 Percentage of relief after and duration: 40% lasting relief. Pain scale after treatment: 10 Chief Complaint Patient presents with Back Pain Hand Pain HPI: PT/HEP 09/2017 w/min relief (@6sessions) for back Back: 12/01/20 Caudal MEÑO with 65% relief 12/21/06/14/2022 caudal MEÑO with 90% relief . 12/29/20 Denny L1/2, [...] 2/3 RFA with 85-90% relief pre-proc pain 5/10 06/20/2023 left L 1/2 2/3 radiofrequency ablations [...] branch block #2 Bilateral 12/05/2017 Performed by Shailesh Vasques MD at [facility] BREAST BIOPSY Left 2003 BENIGN [...] EPIDURAL CAUDAL STEROID N/A 03/07/2023 Performed by Shailesh Vasques MD at [facility] INJECTION BLOCK EPIDURAL CAUDAL STEROID N/A 06/14/2022 Performed by Shailesh Vasques MD at [facility] INJECTION BLOCK EPIDURAL CAUDAL STEROID N/A 12/21/2021 Performed by Shailesh Vasques MD at [facility] INJECTION BLOCK EPIDURAL CAUDAL STEROID N/A 10/12/2021 Performed by Shailesh Vasques MD at [facility] INJECTION BLOCK EPIDURAL CAUDAL STEROID N/A 04/13/2021 Performed by Shialesh Vasques MD at [facility] INJECTION BLOCK EPIDURAL CAUDAL STEROID N/A 12/01/2020 Performed by Shailesh Vasques MD at [facility] INJECTION BLOCK EPIDURAL CAUDAL STEROID N/A 06/30/2020 Performed by Shailesh Vasques MD at [facility] INJECTION BLOCK NERVE KNEE right genicular Right 10/27/2020 Performed by Shailesh Vasques MD at [facility] INJECTION BLOCK NERVE MEDIAL BRANCH: bilat L 1/2 2/3 Bilateral 08/17/2021 Performed by Shailesh Vasques MD at [facility] INJECTION BLOCK NERVE MEDIAL BRANCH: bilat L 1/2 2/3 Bilateral 12/29/2020 Performed by Shailesh Vasques MD at [facility] BURSA LARGE JOINT: left 1st CMC Left 07/19/2022 Performed by Shailesh Vasques MD at [facility] BURSA LARGE JOINT: left hip Left 01/31/2023 Performed by Shailesh Vasques MD at [facility] IN[facility]CTION BURSA LARGE JOINT: left hip Left 04/05/2022 Performed by Shailesh Vasques MD at [facility] IN[facility] BURSA LARGE JOINT: left hip Left 09/14/2021 Performed by Shailesh Vasques MD at [facility] IN[facility] BURSA LARGE JOINT: left hip Left 06/08/2021 Performed by Shailesh Vasques MD at [facility] IN[facility] BURSA LARGE JOINT: left hip Left 08/11/2020 Performed by Shailesh Vasques MD at [facility] BURSA SMALL JOINT Left 1st CMC Left 08/08/2023 Performed by Shailesh Vasques MD at [facility] BURSA SMALL JOINT Left 1st CMC Left 04/11/2023 Performed by Shailesh Vasques MD at [facility] BURSA SMALL JOINT left 1st cmc Left 09/22/2020 Performed by Shailesh Vasques MD at [facility] INJECTION CAUDAL EPIDURAL WITH CATHETER, STEROID N/A 01/28/2020 Performed by Shailesh Vasques MD at [facility] INJECTION CAUDAL EPIDURAL WITH CATHETER, STEROID N/A 10/15/2019 Performed by Shailesh Vasques MD at [facility] INJECTION CAUDAL EPIDURAL WITH CATHETER, STEROID N/A 03/19/2019 Performed by Shailesh Vasques MD at [facility] INJECTION CAUDAL EPIDURAL WITH CATHETER, STEROID N/A 12/21/2018 Performed by Shailesh Vasques MD at [facility] INJECTION CAUDAL EPIDURAL WITH CATHETER, STEROID N/A 09/14/2018 Performed by Shailesh Vasques MD at [facility] INJECTION CAUDAL EPIDURAL WITH CATHETER, STEROID N/A 08/14/2018 Performed by Shailesh Vasques MD at [facility] IN[facility]CTION LARGE JOINT BURSA: left hip Left 02/25/2020 Performed by Shailesh Vasques MD at [facility] IN[facility] LARGE JOINT BURSA: left hip Left 01/29/2019 Performed by Shailesh Vasques MD at [facility] IN[facility] LARGE JOINT BURSA: right knee Right 05/05/2020 Performed by Shailesh Vasques MD at [facility] IN[facility] MEDIAL BRANCH NERVE BLOCK Bilateral L 4/5, 5/1 Bilateral 11/14/2017 Performed by Shailesh Vasques MD at [facility] IN[facility] SI JOINT LEFT Left 09/19/2017 Performed by Shailesh Vasques MD at [facility] Left sacroiliac joint injection x1 Left 08/29/2017 Performed by Shailesh Vasques MD at [facility] RADIO FREQUENCY ABLATION Left SI joint Left 10/10/2017 Performed by Shailesh Vasques MD at [facility] RADIO FREQUENCY ABLATION: left SI Left 06/19/2018 Performed by Shailesh Vasques MD at [facility] RADIOFREQUENCY ABLATION SPINAL: right L 1/2 2/3 Right 02/15/2022 Performed by Shailesh Vasques MD at [facility] RADIOFREQUENCY ABLATION SPINAL: left L 1/2 2/3 Left 02/01/2022 Performed by Shailesh Vasques MD at [facility] RADIOFREQUENCY ABLATION SPINAL: left L 1/2, 2/3 Left 06/20/2023 Performed by Shailesh Vasques MD at [facility] RADIOFREQUENCY ABLATION SPINAL: right L 1/2, 2/3 Right 05/23/2023 Performed by Shailesh Vasques MD at [facility] RADIOFREQUENCY ABLATION SPINAL: left L45 51rfa Left 01/23/2018 Performed by Shailesh Vasques MD at [facility] RADIOFREQUENCY ABLATION SPINAL: right L45 51rfa Right 01/12/2018 Performed by Shailesh Vasques MD at [facility] RELEASE CARPAL TUNNEL Left 12/08/2017 [...] [place] 08/21/23 1300 documented in this encounter [facility] 07-17-2023 History of Present illness Narrative [facility] [address] [place] [address] Patient: Robyn Rahman Sex: female : 1970 Age: 52 y.o. 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, PROVIDER NETWORK ANALYST-SUPERVISOR [employer]IG[employer] PROCESSING 07/17/2023 Robyn Rahman is here for a(n) post procedure follow up 07/24/2022 right then 06/20/2023 left L 1/2 2/3 radiofrequency ablations with 85%-90% relief that cotinues . Pre-procedural pain was reported as 5/10. Chief Complaint Patient presents with Back Pain HPI: Back: 12/01/20 Caudal MEÑO with 65% relief 12/21/06/14/2022 caudal MEÑO with 90% relief . 12/29/20 Denny L1/2, [...] 2/3 RFA with 85-90% relief pre-proc pain 5/10 06/20/2023 left L 1/2 2/3 radiofrequency ablations [...] branch block #2 Bilateral 12/05/2017 Performed by Shailesh Vasques MD at [facility] BREAST BIOPSY Left 2003 BENIGN [...] Performed by Ravi Jimenez MD PhD at [facility] INJECTION BLOCK EPIDURAL CAUDAL STEROID N/A 03/07/2023 Performed by Shailesh Vasques MD at [facility] INJECTION BLOCK EPIDURAL CAUDAL STEROID N/A 06/14/2022 Performed by Shailesh Vasques MD at [facility] INJECTION BLOCK EPIDURAL CAUDAL STEROID N/A 12/21/2021 Performed by Shailesh Vasques MD at [facility] INJECTION BLOCK EPIDURAL CAUDAL STEROID N/A 10/12/2021 Performed by Shailesh Vasques MD at [facility] IN[facility]CTION BLOCK EPIDURAL CAUDAL STEROID N/A 04/13/2021 Performed by Shailesh Vasques MD at [facility] INJECTION BLOCK EPIDURAL CAUDAL STEROID N/A 12/01/2020 Performed by Shailesh Vasques MD at [facility] INJECTION BLOCK EPIDURAL CAUDAL STEROID N/A 06/30/2020 Performed by Shailesh Vasques MD at [facility] INJECTION BLOCK NERVE KNEE right genicular Right 10/27/2020 Performed by Shailesh Vasques MD at [facility] INJECTION BLOCK NERVE MEDIAL BRANCH: bilat L 1/2 2/3 Bilateral 08/17/2021 Performed by Shailesh Vasques MD at [facility] INJECTION BLOCK NERVE MEDIAL BRANCH: bilat L 1/2 2/3 Bilateral 12/29/2020 Performed by Shailesh Vasques MD at [facility] BURSA LARGE JOINT: left 1st CMC Left 07/19/2022 Performed by Shailesh Vasques MD at [facility] BURSA LARGE JOINT: left hip Left 01/31/2023 Performed by Shailesh Vasques MD at [facility] BURSA LARGE JOINT: left hip Left 04/05/2022 Performed by Shailesh Vasques MD at [facility] BURSA LARGE JOINT: left hip Left 09/14/2021 Performed by Shailesh Vasques MD at [facility] BURSA LARGE JOINT: left hip Left 06/08/2021 Performed by Shailesh Vsaques MD at [facility] BURSA LARGE JOINT: left hip Left 08/11/2020 Performed by Shailesh Vasques MD at [facility] BURSA SMALL JOINT Left 1st CMC Left 04/11/2023 Performed by Shailesh Vasques MD at [facility] BURSA SMALL JOINT left 1st cmc Left 09/22/2020 Performed by Shailesh Vasques MD at [facility] INJECTION CAUDAL EPIDURAL WITH CATHETER, STEROID N/A 01/28/2020 Performed by Shailesh Vasques MD at [facility] INJECTION CAUDAL EPIDURAL WITH CATHETER, STEROID N/A 10/15/2019 Performed by Shailesh Vasques MD at [facility] INJECTION CAUDAL EPIDURAL WITH CATHETER, STEROID N/A 03/19/2019 Performed by Shailesh Vasques MD at [facility] INJECTION CAUDAL EPIDURAL WITH CATHETER, STEROID N/A 12/21/2018 Performed by Shailesh Vasques MD at [facility] INJECTION CAUDAL EPIDURAL WITH CATHETER, STEROID N/A 09/14/2018 Performed by Shailesh Vasques MD at [facility] INJECTION CAUDAL EPIDURAL WITH CATHETER, STEROID N/A 08/14/2018 Performed by Shailesh Vasques MD at [facility] INJECTION LARGE JOINT BURSA: left hip Left 02/25/2020 Performed by Shailesh Vasques MD at [facility] LARGE JOINT BURSA: left hip Left 01/29/2019 Performed by Shailesh Vasques MD at [facility] LARGE JOINT BURSA: right knee Right 05/05/2020 Performed by Shailesh Vasques MD at [facility] MEDIAL BRANCH NERVE BLOCK Bilateral L 4/5, 5/ Bilateral 11/14/2017 Performed by Shailesh Vasques MD at [facility] INJECTION SI JOINT LEFT Left 09/19/2017 Performed by Shailesh Vasques MD at [facility] Left sacroiliac joint injection x1 Left 08/29/2017 Performed by Shailesh Vasques MD at [facility] RADIO FREQUENCY ABLATION Left SI joint Left 10/10/2017 Performed by Shailesh Vasques MD at [facility] RADIO FREQUENCY ABLATION: left SI Left 06/19/2018 Performed by Shailesh Vasques MD at [facility] RADIOFREQUENCY ABLATION SPINAL: right L 1/2 2/3 Right 02/15/2022 Performed by Shailesh Vasques MD at [facility] RADIOFREQUENCY ABLATION SPINAL: left L 1/2 2/3 Left 02/01/2022 Performed by Shailesh Vasques MD at [facility] RADIOFREQUENCY ABLATION SPINAL: left L 1/2, 2/3 Left 06/20/2023 Performed by Shailesh Vasques MD at [facility] RADIOFREQUENCY ABLATION SPINAL: right L 1/2, 2/3 Right 05/23/2023 Performed by Shailesh Vasques MD at [facility] RADIOFREQUENCY ABLATION SPINAL: left L45 51rfa Left 01/23/2018 Performed by Shailesh Vasques MD at [facility] RADIOFREQUENCY ABLATION SPINAL: right L45 51rfa Right 01/12/2018 Performed by Shailesh Vasques MD at [facility] RELEASE CARPAL TUNNEL Left 12/08/2017 [...] [place] 07/17/23 1205 documented in this encounter [email or web address] 07-17-2023 Instructions Samantha Schulz CNA - 07/17/2023 [...] back to normal. documented in this encounter [facility] Evaluation note Diagnosis 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- Primary 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- Primary 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 documented in this encounter [facility] SystemEvaluation note* Diagnosis Lumbar spondylosis- Primary Lumbosacral spondylosis without myelopathy documented in this encounter [facility] System[facility] note* Diagnosis Recurrent biliary colic Calculus of gallbladder without mention of cholecystitis or obstruction documented in this encounter [facility] HealthcareEvaluation note* Diagnosis Lumbar spondylosis- Primary Lumbosacral spondylosis without myelopathy documented in this encounter [facility] SystemEvaluation note* Diagnosis S/P foot surgery- Primary Other postprocedural status Right foot pain Pain in soft tissues of limb [facility] filedocumented in this encounterProCommunity [facility] SystemInstructionsNot on filedocumented in this encounterProC[facility] Summary Purpose Family History No Family History Records FoundNo Family History Records FoundNo Family History Records FoundNo Family History Records FoundNo Family History Records Found Advance Directives No Advanced Directives Records FoundNo Advanced Directives Records FoundNo Advanced Directives Records FoundNo Advanced Directives Records FoundNo Advanced Directives Records Found Reason for Referral Specialty Diagnoses / Procedures Referred By Sen wilkes Referred To Contact Diagnoses 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 Procedures Case request operating room: INJECTION BURSA LARGE JOINT: left CMC Rachel Mckeon PA [address] [place] [address] Referral ID Status Reason Start Date Expiration Date V isits Requested Visits Authorized [id number] Pending Review 07/17/2023 07/16/2024 1 1 Additional Source Comments INFORMATION SOURCE (unrecogn ized section and content) DATE CREATED AUTHOR 08/11/2022 [facility] DATE CREATED AUTHOR AUTHOR'S ORGANIZ ATION 11/19/2023 [facility] DATE CREATED AUTHOR AUTHOR'S ORGANIZ ATION 12/03/[address] [facility] DATE CREATED AUTHOR AUTHOR'S ORGANIZ ATION 04/01/2024 [facility] DATE CREATED AUTHOR AUTHOR'S ORGANIZ ATION 04/06/2024 [facility] EPIC Reason for Visit (unrecogniz ed section and content) Reason Comments Back Pain Reason Comments Back Pain Hand Pain Reason Comments Cholelithiasis Patient has had abdo giovanna pain for over a week . Was seen at [facility] ER last week. Scan showed gall stones. Specialty Diagnoses / Procedures Referred By Sen wilkes Referred To Contact General Surgery Diagnoses Calculus of gallbladder with acute on chronic cholecystitis without obstruction Procedures ID OFFICE/OUTPATIENT [facility] MDM 60 MINUTES Saurabh Fuentes, [address] [address] Phone: tel: fax: Saurabh Fuentes [address] [facility] [address] [place] [address] Phone: tel: fax: Referral ID Status Reason Start Date Expiration Date V isits Requested Visits Authorized [id number] Closed Specialty Services Required 03/23/2024 09/19/2024 1 1 Reason Comments Back Pain Reason Comments Post-op Established pt prese nts today for POV#4, DOS: 10/09/23, right foot. Pt relates pinky toe will become swollen and red sometimes, but otherwise doing well. Care Teams (unrecognized sec tion and content) [employer]ision Instrument Maker And Repairer Relationship Specialty Start Date End Date Pastora Ledesma APRN-SUPERVISOR [employer] [address] [place] [address] PCP - General Family Medicine 12/10/18 [employer] Maker And Repairer Relationship Specialty Start Date End Date Pastora Ledesma APRN-SUPERVISOR [employer] [address] [place], [place] [id number] PCP - General Family Medicine 12/10/18 [employer] Instrument Maker And Repairer Relationship Specialty Start Date End Date Sandra Gonzalez MD [address] [place] [address] PCP - General Pediatrics 08/12/23 Pastora Ledesma MD [address] [place] [address] Referring Physician Family Medicine 08/12/23 [employer] Instrument Maker And Repairer Relationship Specialty Start Date End Date Sandra Gonzalez MD [address] [place] [address] PCP - General Pediatrics 08/12/23 Pastora Ledesma MD [address] [place] [address] Referring Physician Family Medicine 08/12/23 [employer]ision Instrument Maker And Repairer Relationship Specialty Start Date End Date Pastora Ledesma, PROVIDER NETWORK ANALYST-[facility] [address] [place] [address] PCP - General Family Medicine 12/10/18 [employer] Instrument Maker And Repairer Relationship Specialty Start Date End Date Sandra Gonzalez MD [address] [place] [address] PCP - General Pediatrics 08/12/23 Pastora Ledesma MD [address] [place] [address] Referring Physician Family Medicine 08/12/23 FOR RECORDS PERTAINING TO PATIENTS WHO ARE [...] BE BASED ON THE PRIMARY CLINICAL RECORDS. [facility] [employer] [facility]. provides no warranty or guarantee of the accuracy or completeness of information in this document.
== END 2024-04-07 13:45 | disposition home or self-care (01) ==
LOC: PST 13:45
PROVIDERS: Visit Provider Surgery
DX: Z01.818 Encounter for other preprocedural examination (principal); K80.20 Calculus of gallbladder without cholecystitis without obstruction

== ENCOUNTER 2024-04-13 10:37 | Day surgery (SDC) | payer MEDICAID, SELFPAY ==
[2024-04-07 14:04] VITALS: BP 120/73; PULSE 90; TEMP 36.2; O2SAT 98; BMI 25.1
[2024-04-13] VITALS (14 sets, daily range): BP systolic 107–129; BP diastolic 62–81; PULSE 59–75; TEMP 36.2; O2SAT 93–100; BMI 25.2
--- OUTSIDE RECORDS SUMMARY | 2024-04-13 10:57 | XMS_ITS | CCD ---
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 A Primary Care Provider HANS GONSALEZ Referring Unavailable ANGLIM, PASTORA A Primary Care Unavailable HANS GONSALEZ Attending Unavailable ANGLIM, PASTORA A Referring Unavailable ANGLIM, PASTORA A Primary Care Unavailable HANS GONSALEZ Attending Unavailable ANGLIM, PASTORA A Referring Unavailable ANGLIM, PASTORA A Primary Care Unavailable Ianlim Pastora FUENTES Unavailable Sandra Gonzalez MD Primary Care Provider [phone] SHAILESH VASQUES Attending Unavailable SHAILESH VASQUES Referring [...] ANGLIM, PASTORA A Primary Care Unavailable RUSHER, AUBERY S Admitting Unavailable RUSHER, AUBREY S Attending [...] Unavailable ANGLIM, PASTORA A Primary Care Unavailable ADDISON BRANCH Attending Unavailable ANGLIM, PASTORA A Primary [...] Translations: [SULFAMETHOXAZOLE-T RIMETHOPRIM] Drug Allergy 08-26-19 18 [facility]ository (1 source) Sulfamethoxazole / Trimethoprim Drug Allergy 05-05-20 21 [facility] Repository (11 sources) Sulfamethoxazole / Trimethoprim; Translations: [SULFAMETHOXAZOLE-T RIMETHOPRIM] Drug Allergy 08-26-19 18 [facility] (6 sources) House dust mite Propensity to [...] Drug Class(es) Dates Sig (Normalized) Sig (Original) [id number] actuat albuterol 0.09 mg/actuat metered dose [...] mouth in the morning. 0 04/15/2022 Active ahfnitrnwidy-Vi-mmny-mineral s tablet (2 sources) multivitamin-Ca- iron-minerals tablet [...] times daily 15 g 09/18/2022 Active omega 7-tvz-dfu-fish oil (Fish OiL) 300-1,000 mg capsule (3 sources) take 300-1000 mg by mouth in the morning omega 9-htm-eld-fish oil (Fish OiL) 300-1,000 mg capsule Take 1 tablet by mouth in the morning. Active take 300-1000 mg by mouth in the morning omega 7-jlf-uwn-fish oil (Fish OiL) 300-1,000 mg capsule Take 1 tablet by mouth in the morning. 0 Active omega 8-ctp-bdn-fish oil 60-90-500 mg capsule,delayed release(DR/EC) (2 sources) take 1 capsule by mouth every eight hours omega 1-ufj-eli-fish oil 60-90-500 mg capsule,delayed release(DR/EC) 1 capsule every 8 (eight) hours. Active take [address] 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 DRUG THERAPY] Onset: 08-10-2022 Episodic Other [...] Johnson MD on 11/23/2023 7:04 AM Normal [facility] US RETROPERITONEAL COMPLETEo n 11-23-2023 US [...] Valdez MD on 11/23/2023 7:32 PM Normal [facility] XR HAND RT MIN 3 VWSon 11-22 [...] Rothman MD on 11/23/2023 11:35 AM Normal [facility] URINALYSISon 11-17-2023 Bilirubin Ql (U) Negative Normal NEG [facility] Comment on above: Performed By: #### U A #### [facility] ([id number]) [address], [address] [place] [address] BLOOD/HGB Negative Normal NEG [facility] Comment on above: Performed By: #### U A #### [facility] ([id number]) [address], [address] [place] [address] Color (U) YELLOW Normal YELLOW [facility] Comment on above: Performed By: #### U A #### [facility] ([id number]) [address], [address] [place] [address] Glucose Ql (U) Negative Normal NEG [facility] Comment on above: Performed By: #### U A #### [facility] ([id number]) [address], [address] [place] [address] Ketones Ql (U) Negative Normal NEG [facility] Comment on above: Performed By: #### U A #### [facility] ([id number]) [address], [address] [place] [address] Leukocyte esterase Test strip Ql (U) Negative Normal NEG [facility] Comment on above: Performed By: #### U A #### [facility] ([id number]) [address] [facility], [address] [place] [address] Nitrite Ql (U) Negative Normal NEG [facility] Comment on above: Performed By: #### U A #### [facility] ([id number]) [address], [address] [place] [address] pH (U) 6.5 [pH] Normal 5.0-8.5 [facility] Comment on above: Performed By: #### U A #### [facility] ([id number]) [address] [facility] [address], [address] [place] [address] Protein Ql (U) Negative Normal NEG [facility] Comment on above: Performed By: #### U A #### [facility] ([id number]) [address] [facility] [address] [place] [address] Specific gravity (U) [Rel density] 1.011 Normal 1.003-1.035 [facility] Comment on above: Performed By: #### U A #### [facility] ([id number]) [address], [address] [place] [address] TURBIDITY CLEAR Normal CLEAR [facility] Comment on above: Performed By: #### U A #### [facility] ([id number]) [address] [facility] [address], [address] [place] [address] Urobilinogen (U) [Mass/Vol] mg/dL Normal <1.1 [facility] Comment on above: Performed By: #### U A #### [facility] ([id number]) [address] [address] [place] [address] URINE CULTUREon 11-17-2023 Bacteria identified Cx Nom (U) CULTURE RESULTS NO GROWTH AT <1000 CFU/mL Normal [facility] Comment on above: Performed By: #### 6 30-4 #### [facility] ([id number]) [address] [address] [place] [address] COMPLETE BLOOD COUNTon 09-30 Erythrocyte distribution width (RBC) [Ratio] 13.5 % Normal 11.5-15.0 [facility] Comment on above: Performed By: #### C BC #### [facility] ([id number]) [address] [address] [place] [address] Hematocrit (Bld) [Volume fraction] 43.3 % Normal 35-47 [facility] Comment on above: Performed By: #### C BC #### [facility] ([id number]) [address] [address] [place] [address] Hemoglobin (Bld) [Mass/Vol] 14.6 g/dL Normal 11.7-15.5 [facility] Comment on above: Performed By: #### C BC #### [facility] ([id number]) [address] [address] [place] [address] MCH (RBC) [Entitic mass] 34.2 pg High 27-34 [facility] Comment on above: Performed By: #### C BC #### [facility] ([id number]) [address] [address] [place] [address] MCHC (RBC) [Mass/Vol] 33.8 g/dL Normal 32-36 [facility] Comment on above: Performed By: #### C BC #### [facility] ([id number]) [address] [address] [place] [address] MCV (RBC) [Entitic vol] 101 fL High 80-100 [facility] Comment on above: Performed By: #### C BC #### [facility] ([id number]) [address], [address] [place] [address] Platelet mean volume (Bld) [Entitic vol] 9.5 fL Normal 7-12 [facility] Comment on above: Performed By: #### C BC #### [facility] ([id number]) [address], [facility] [address] [place] [address] Platelets (Bld) [#/Vol] 281 10*3/uL Normal 150-450 [facility] Comment on above: Performed By: #### C BC #### [facility] ([id number]) [address], [facility] [address] [place] [address] RBC COUNT 4.28 X10E12/L Normal 3.80-5.20 [facility] Comment on above: Performed By: #### C BC #### [facility] ([id number]) [address], [address] [place] [address] WBC (Bld) [#/Vol] 9.5 10*3/uL Normal 4.0-11.0 [facility] Comment on above: Performed By: #### C BC #### [facility] ([id number]) [address], [address] [place] [address] MR THORACIC SPINE WO CONTon 10-01-2023 MR [...] Urena MD on 10/01/2023 2:52 PM Normal [facility] XR CHEST 2 VWSon 10-01-2023 XR CHEST [...] Rothman MD on 10/01/2023 10:29 AM Normal [facility] BASIC METABOLIC PANLon 09-23 Anion gap [Moles/Vol] 6 mmol/L Normal 5-15 [facility] Comment on above: Performed By: #### B MP #### [facility] ([id number]) [address] [place] [address] Calcium [Mass/Vol] 9.3 mg/dL Normal 8.5-10.5 [facility] Comment on above: Performed By: #### B MP #### [facility] ([id number]) [address] [place] [address] Chloride [Moles/Vol] 102 mmol/L Normal 98-109 [facility] Comment on above: Performed By: #### B MP #### [facility] ([id number]) [address], [address] [place] [address] CO2 [Moles/Vol] 29 mmol/L Normal 22-32 [facility] Comment on above: Performed By: #### B MP #### [facility] ([id number]) [address] [place] [address] Creatinine [Mass/Vol] 0.71 mg/dL Normal 0.40-1.00 [facility] Comment on above: Result Comment: METH OD TRACEABLE TO IDMS STANDARD Performed By: #### B MP #### [facility] ([id number]) [address] [place] [address] eGFR (CKD-EPI) NON-RACE DEPENDENT >90 Normal >59 [facility] Comment on above: Result Comment: Reported eGFR is based on the CKD-EPI 2020 equation that does not use a race coefficient. Performed By: #### B MP #### [facility] ([id number]) [address], [address] [place] [address] Glucose [Mass/Vol] 88 mg/dL Normal 65-99 [facility] Comment on above: Performed By: #### B MP #### [facility] ([id number]) [address], [address] [place] [address] Potassium [Moles/Vol] 3.8 mmol/L Normal 3.5-5.0 [facility] Comment on above: Performed By: #### B MP #### [facility] ([id number]) [address], [address] [place] [address] Sodium [Moles/Vol] 137 mmol/L Normal 134-146 [facility] Comment on above: Performed By: #### B MP #### [facility] ([id number]) [address], [address] [place] [address] Urea nitrogen [Mass/Vol] 8 mg/dL Normal 5-23 [facility] Comment on above: Performed By: #### B MP #### [facility] ([id number]) [address] [facility] [address] [address], [address] [place] [address] CBC AUTO DIFFon 08-08-2022 BASO # 0.0 103/ul Normal 0.0-0.1 [facility] Comment on above: Performed By: #### C BC #### [facility] [address] [address] [address] Seferino Brock Basophils/100 WBC (Bld) 0.5 % Normal 0.2-2.0 [facility] Comment on above: Performed By: #### C BC #### [facility] [address] [place] [address] Dr. Seferino Brock EO # 0.1 103/ul Normal 0.0-0.7 [facility] Comment on above: Performed By: #### C BC #### [facility] [address] [place] [address] Dr. Seferino Brock Eosinophils/100 WBC (Bld) 0.9 % Normal 0.9-7.0 [facility] Comment on above: Performed By: #### C BC #### [facility] [address] [place] [address] Dr. Seferino Brock Erythrocyte distribution width (RBC) [Ratio] 12.7 % Normal 11.0-15.0 [facility] Comment on above: Performed By: #### C BC #### [facility] [address] [place] [address] Dr. Seferino Brock Hematocrit (Bld) [Volume fraction] 43.0 % Normal 36.0-48.0 [facility] Comment on above: Performed By: #### C BC #### [facility] [address] [place] [address] Dr. Seferino Brock Hemoglobin (Bld) [Mass/Vol] 14.9 g/dL Normal 12.0-16.0 [facility] Comment on above: Performed By: #### C BC #### [facility] [address] [place] [address] Dr. Seferino Brock IG # 0.01 10e3/ul Normal 0.00-0.03 [facility] Comment on above: Performed By: #### C BC #### [facility] [address] [place] [address] Dr. Seferino Brock IG % 0.1 % Normal 0.0-0.5 [facility] Comment on above: Performed By: #### C BC #### [facility] [address] [place] [address] Dr. Seferino Brock LYMPH # 1.7 103/ul Normal 1.2-3.8 [facility] Comment on above: Performed By: #### C BC #### [facility] [address] [place] [address] Dr. Seferino Brock Lymphocytes/100 WBC (Bld) 22.9 % Normal 20.5-60.0 [facility] Comment on above: Performed By: #### C BC #### [facility] [address] [place] [address] Dr. Seferino Brock MANUAL DIFF REQ NO Normal [facility] Comment on above: Performed By: #### C BC #### [facility] [address] [place] [address] Dr. Seferino Brock MCH (RBC) [Entitic mass] 33.5 pg Normal 26.7-34.0 [facility] Comment on above: Performed By: #### C BC #### [facility] [address] [place] [address] Dr. Seferino Brock MCHC (RBC) [Mass/Vol] 34.7 g/dL Normal 29.9-35.2 [facility] Comment on above: Performed By: #### C BC #### [facility] [address] [place] [address] Dr. Seferino Brock MCV (RBC) [Entitic vol] 96.6 fL Normal 81.0-99.0 [facility] Comment on above: Performed By: #### C BC #### [facility] [address] [place] [address] Dr. Seferino Brock MONO # 0.4 103/ul Normal 0.3-0.8 [facility] Comment on above: Performed By: #### C BC #### [facility] [address] [address] [address] Seferino Brock Monocytes/100 WBC (Bld) 5.6 % Normal 1.7-12.0 [facility] Comment on above: Performed By: #### C BC #### [facility] [address] [place] [address] Dr. Seferino Brock NEUT # 5.2 103/ul Normal 1.4-6.5 [facility] Comment on above: Performed By: #### C BC #### [facility] [address] [place] [address] Dr. Seferino Brock Neutrophils/100 WBC (Bld) 70.0 % Normal 43.0-75.0 [facility] Comment on above: Performed By: #### C BC #### [facility] [address] [place] [address] Dr. Seferino Brock Platelet mean volume (Bld) [Entitic vol] 10.0 fL Normal 9.5-13.5 [facility] Comment on above: Performed By: #### C BC #### [facility] [address] [place] [address] Dr. Seferino Brock PLT 286 103/ul Normal 150-450 [facility] Comment on above: Performed By: #### C BC #### [facility] [address] [place] [address] Dr. Seferino Brock RBC 4.45 106/ul Normal 4.20-5.40 [facility] Comment on above: Performed By: #### C BC #### [facility] [address] [place] [address] Dr. Seferino Brock WBC 7.5 103/ul Normal 4.0-11.0 [facility] Comment on above: Performed By: #### C BC #### [facility] [address] [place] [address] HEAD WO CONon [...] DAYO UNLU Date: 2022-08-08 14:02 Normal [facility] PROF CHEM 8 (BAS METB)on Anion gap [Moles/Vol] 13.3 mmol/L Normal [facility] Comment on above: Performed By: #### B MP #### [facility] [address] [place] [address] Dr. Seferino rBock Calcium [Mass/Vol] 9.6 mg/dL Normal 8.5-10.1 [facility] Comment on above: Performed By: #### B MP #### [facility] [address] [place] [address] Dr. Seferino Brock Chloride [Moles/Vol] 102 mmol/L Normal 98-107 [facility] Comment on above: Performed By: #### B MP #### [facility] [address] [place] [address] Dr. Seferino Brock CO2 [Moles/Vol] 26.1 mmol/L Normal 21.0-32.0 [facility] Comment on above: Performed By: #### B MP #### [facility] [address] [place] [address] Dr. Seferino Brock Creatinine [Mass/Vol] 0.66 mg/dL Normal 0.55-1.02 [facility] Comment on above: Performed By: #### B MP #### [facility] [address] [address] [address] Seferino Brock EGFR-AF ANDORRAN >60 Normal >=60 [facility] Comment on above: Performed By: #### B MP #### [facility] [id number] Seferino Brock EGFR-NON AF ANDORRAN >60 Normal >=60 [facility] Comment on above: Performed By: #### B MP #### [facility] [address] [address] [address] Seferino Brock Glucose [Mass/Vol] 92 mg/dL Normal 74-106 [facility] Comment on above: Performed By: #### B MP #### [facility] [address] [place] [address] Dr. Seferino Brock Potassium [Moles/Vol] 4.4 mmol/L Normal 3.5-5.1 [facility] Comment on above: Performed By: #### B MP #### [facility] [address] [place] [address] Dr. Seferino Brock Sodium [Moles/Vol] 137 mmol/L Normal 136-145 [facility] Comment on above: Performed By: #### B MP #### [facility] [address] [place] [address] Dr. Seferino Brock Urea nitrogen [Mass/Vol] 6.0 mg/dL Critically low 7.0-18.0 [facility] Comment on above: Performed By: #### B MP #### [facility] [address] [place] [address] Dr. Seferino Brock Urea nitrogen/Creatinine [Mass ratio] 9.1 mg/mg Normal [facility] Comment on above: Performed By: #### B MP #### [facility] [id number] Seferino Brock Vital Signs Date Time Vital Sign Value Performing Clinician Facility 03-30-2024 13:23-0400 Body height 157.5 cm Rachel [facility]ALES [facility] 03-30-2024 13:23-0400 Body mass index (BMI) [Ratio] 26.34 kg/m2 Rachel Nienberg PA Work Phone: [facility] 03-30-2024 13:23-0400 Body weight 65.32 kg Rachel Mckeon PA Work Phone: [facility] 03-30-2024 13:23-0400 Diastolic blood pressure 75 mm[Hg] Rachel Kapoorenberg PA Work Phone: [facility] 03-30-2024 13:23-0400 Heart rate 80 /min Rachel Kapoorenberg PA Work Phone: [facility] 03-30-2024 13:23-0400 Respiratory rate 18 /min Rachel Kapoorenberg PA Work Phone: [facility] 03-30-2024 13:23-0400 SaO2% (BldA) [Mass fraction] 95 % Rachel Kapoorshelly PA Work Phone: [facility] [employer] 03-30-2024 13:23-0400 Systolic blood pressure 99 mm[Hg] Rachel Mckeon PA Work Phone: [facility] [employer] 03-29-2024 10:14-0400 Body height 160 cm Saurabhstarr Fuentes DO Work Phone: [facility] [employer] 03-29-2024 10:14-0400 Body mass index (BMI) [Ratio] 23.74 kg/m2 Saurabh Mary DO Work Phone: [facility] [employer] 03-29-2024 10:14-0400 Body weight 60.78 kg Saurabhstarr Albrightett DO Work Phone: [facility] [employer] 03-29-2024 10:14-0400 Diastolic blood pressure 78 mm[Hg] Saurabh Mary DO Work Phone: [facility] [employer] 03-29-2024 10:14-0400 Systolic blood pressure 128 mm[Hg] Saurabh Mary DO Work Phone: [facility] [employer] 08-21-2023 10:13-0400 Body height 157.5 cm Rachel Kapoorenberg PA Work Phone: [employer] 08-21-2023 10:13-0400 Body mass index (BMI) [Ratio] 28.35 kg/m2 Rachel Nienberg PA Work Phone: [facility] 08-21-2023 10:13-0400 Body weight 70.31 kg Rachel Nienberg PA Work Phone[facility] 08-21-2023 10:13-0400 Diastolic blood pressure 86 mm[Hg] Rachel Nienberg PA Work Phone: [facility] [employer] 08-21-2023 10:13-0400 Heart rate 82 /min Rachel Nienberg PA Work Phone[facility] 08-21-2023 10:13-0400 Respiratory rate 18 /min Rachel Nienberg PA Work Phone[facility] 08-21-2023 10:13-0400 Systolic blood pressure 120 mm[Hg] Rachel Nienberg PA Work Phone[facility] 07-17-2023 09:30-0500 Diastolic blood pressure 93 mm[Hg] Rachel Nienberg PA Work Phone: [employer] 07-17-2023 09:30-0500 Systolic blood pressure 141 mm[Hg] Rachel Nienberg PA Work Phone[facility] 07-17-2023 09:27-0500 Heart rate 92 /min Rachel Nienberg PA Work Phone: [facility] 07-17-2023 09:27-0500 Respiratory rate 16 /min Rachel Nienberg PA Work Phone: [employer] 07-17-2023 09:27-0500 SaO2% (BldA) [Mass fraction] 97 % Rachel Nienberg PA Work [facility] Encounters Encounter Date Encounter Type Care Provider Facility Start: 04-05-2024 End: 04-05-2024 Bamboo flowsestella Anders DPM Work Phone: [facility] Start: 04-05-2024 End: 04-05-2024 Bamboo flowsheet Aubrey S Martita DPM Work Phone: [facility] Start: 04-05-2024 End: 04-05-2024 Office outpatient visit 15 minutes Aubrey Wayne Martita DPM Work Phone: [facility] Comment on above: S/P foot surgery (Pr imary Dx); Right foot pain Start: 04-05-2024 End: 04-05-2024 ambulatory AUBREY Black MARTITA Not Available Start: 03-30-2024 End: 03-30-2024 Office outpatient visit 15 minutes Rachel Wayne shelly PA Work Phone: [facility] Comment on above: Lumbar spondylosis ( Primary Dx) Start: 03-30-2024 End: 03-30-2024 ambulatory [facility] Start: 03-29-2024 End: 03-29-2024 Bamboo flowsheet Saurabh [...] Not Available Start: 03-12-2024 End: 03-12-2024 ambulatory [facility] Start: 02-19-2024 End: 02-19-2024 ambulatory [facility] Start: 01-31-2024 End: 01-31-2024 ambulatory OFELIA MAXWELL [facility] Start: 01-30-2024 End: 01-30-2024 ambulatory [facility] Start: 01-08-2024 End: 01-08-2024 ambulatory RACHEL S [facility] Start: 12-31-2023 End: 12-31-2023 ambulatory AUBREY S RUSHER Not Available Start: 12-23-2023 End: 02-01-[address] [facility] Wayne [facility] Start: 12-19-2023 End: 12-19-2023 ambulatory SHAILESH [facility] Start: 12-02-2023 End: 12-02-2023 ambulatory [facility] Start: 11-21-2023 End: 11-21-[address] [facility] Wayne [facility] Start: 11-19-2023 End: 11-19-2023 ambulatory AUBREY S RUSHER Not Available Start: 11-17-2023 End: 11-17-2023 ambulatory [facility] Start: 11-17-2023 End: 11-17-2023 ambulatory [facility] Start: 11-13-2023 End: 11-13-[address] [facility] Wayne [facility] Start: 11-05-2023 End: 11-05-2023 ambulatory AUBREY S RUSHER Not Available Start: 10-22-2023 End: 10-22-2023 ambulatory AUBREY S RUSHER Not Available Start: 10-10-2023 End: 10-10-2023 Evaluation and management of inpatient RACHELE DENNEY [facility] Start: 10-09-2023 End: 10-10-2023 Evaluation and management of inpatient AUBREY S [facility] Start: 10-09-2023 End: 10-09-2023 Evaluation and management of inpatient [facility] Start: 10-01-2023 Encounter for preprocedural laboratory examination [facility] Start: 10-01-2023 End: 10-01-2023 ambulatory PASTORA LEDESMA [facility] Start: 09-24-2023 End: 09-24-2023 ambulatory KAMINI Burt JADIEL [facility] Start: 09-24-2023 Encounter for other preprocedural examination [facility] Start: 09-24-2023 End: 09-24-2023 ambulatory AUBREY ANDERS Not Available Start: 09-23-2023 End: 09-23-[address] [facility] Start: 09-09-2023 End: 09-09-2023 ambulatory AUBREY ANDERS Not Available Start: 08-21-2023 End: 08-21-2023 Office outpatient visit 15 minutes Rachel GONSALES Work Phone: [facility] Comment on above: Lumbar spondylosis ( Primary Dx) Start: 08-21-2023 End: 08-21-[address] 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 Start: 06-20-2023 End: 06-21-2023 ambulatory JOE LAWSON [facility] Start: 06-06-2023 End: 06-06-2023 ambulatory [facility] Start: 06-06-2023 End: 06-06-2023 ambulatory [facility] Start: 05-24-2023 End: 05-24-2023 ambulatory ADDISON BRANCH [facility] Start: 05-23-2023 End: 05-23-2023 ambulatory [facility] Start: 08-08-2022 End: 08-08-[address] [...] for malign ant neoplasm of colon Colonoscopy [facility] Start: 03-30-2025 Adult BMI Screening Adult BMI Screen ing [facility] Start: 03-30-2025 Tobacco Screening Tobacco Screening [facility] Start: 08-20-2024 Adult BMI Screening Adult BMI Screen ing [facility] Start: 08-20-2024 Tobacco Screening Tobacco Screening [facility] Start: 07-17-2024 Tobacco Screening Tobacco Screening [facility] Start: 05-20-2024 End: 05-20-2024 Patient encounter procedure 05/20/2024 1:30 PM EST Office Visit [facility] [address] [place] [phone] Rachel Mckeon PA [address] [place] [address] [facility] Start: 04-05-2024 End: 04-05-2024 Patient encounter procedure [facility] Comment on above: Arrived Start: 03-29-2024 End: 03-29-2024 Patient encounter procedure 03/29/2024 10:00 AM EDT Office Visit [facility] [address] [place] [address] Saurabh Fuentes DO [address] [place] [phone] Calculus of gallbladder with acute on chronic cholecystitis without obstruction [facility] Comment on above: Calculus of gallblad vida with acute on chronic cholecystitis without obstruction Start: 02-19-2024 Adult BMI Screening Adult BMI Screen ing [facility] Start: 02-01-2024 Influenza vaccination Influenza Vacc ine [facility] Start: 09-23-2023 End: 09-23-2023 Patient encounter procedure 09/23/2023 12:30 PM EDT Office Visit [facility] [address] [place] [phone] Rachel Mckeon PA [address] [place], [place] [phone] [facility] Start: 08-21-2023 End: 08-21-2023 Patient encounter procedure 08/21/2023 9:45 AM EDT Office Visit [facility] [address] [place] [phone] Rachel Mckeon PA [address] [place], [place] [phone] [facility] Start: 08-08-2023 End: 08-08-2023 Admission to same day surgery center 08/08/2023 9:07 AM EST - 08/08/2023 9:12 AM EST Surgery [facility] [address] [place] [phone] Shailesh Vasques MD [address] [place], [place] [id number] INJECTION BURSA SMALL JOINT Left 1st CMC [ (CPT )] [facility] Comment on above: INJECTION BURSA SMAL L JOINT Left 1st CMC [ (CPT )] Start: 08-08-2023 End: 08-08-2023 Arthrocentesis aspir&/inj small jt/bursa w/o us INJECTION BURSA SMALL JOINT 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 08/08/2023 9:07 AM EST [facility] Start: 08-08-2023 Subsequent hospital visit by physician 08/08/2023 9:07 AM EST Hospital Encounter [facility] [address] [place] [phone] Shailesh Vasques MD [address] [place] [address] [facility] Start: 06-27-2022 Depression Screening Depression [facility] Start: 2020 Administration of varicella zoster vaccine Zoster (Shingles) Vaccine (1 of 2) [facility] Start: 12-26-1991 Screening for malign ant neoplasm of cervix Pap Smear [facility] Start: 1989 DTaP,Tdap and Td Vaccines (1 - Tdap) DTaP,Tdap and Td Vaccines (1 - Tdap) [facility] Start: 1988 Adult BMI Follow Up Plan Adult BMI F ollow Up Plan [facility] Start: 1970 Tobacco Counseling Tobacco Counselin elysia [facility] Immunizations Immunization Date Immunization Notes Care Provider Fa [facility] 03-19-2023 Influenza, injectabl e, Madin Adriana Canine Kidney, preservative free, quadrivalent Saurabh Fuentes DO Work Phone: [facility] 03-19-2023 influenza virus vaccine, unspecified formulation Rachel GONSALES Work Phone: [facility] 04-15-2022 Influenza, injectabl e, Madin [place]more Canine Kidney, preservative free, quadrivalent Saurabh Mary DO Work Phone: [facility] 03-27-2020 influenza, injectabl e, quadrivalent, preservative free Saurabh Mary DO Work Phone: [facility] 04-01-2018 Influenza, injectabl e, Madin Highmore Canine Kidney, preservative free, quadrivalent Saurabh Mary DO Work Phone: [facility] Healthcare Payers Date Payer Category Payer Medicaid [id number] 2022 Medicaid [id number] 1970 Unknown [id number] 2.16.84 0.1.993179.3.579.2.593 1970 Unknown [id number] 2.16.8 40.1.522738.3.579.2.1285 1970 Unknown [id number] 2.16.8 40.1.632394.3.579.2.1285 1970 Unknown [id number] 2.16.8 40.1.854705.3.579.2.1285 1970 Unknown [id number] 2.16.8 40.1.840387.3.579.2.1285 1970 Unknown [id number] 2.16.8 40.1.957794.3.579.2.1285 1970 Unknown [id number] 2.16.8 40.1.886267.3.579.2.1285 1970 Unknown [id number] 2.16.8 40.1.881963.3.579.2.1285 1970 Unknown [id number] 2.16.8 40.1.400310.3.579.2.1285 1970 Unknown [id number] 2.16.8 40.1.292550.3.579.2.1285 1970 Unknown [id number] 2.16.8 40.1.135715.3.579.2.1285 1970 Unknown [id number] 2.16.8 40.1.336065.3.579.2.1285 1970 Unknown [id number] 2.16.8 40.1.913513.3.579.2.1285 1970 Unknown [id number] 2.16.8 40.1.369358.3.579.2.1285 1970 Unknown [id number] 2.16.8 40.1.359997.3.579.2.1285 1970 Unknown [id number] 2.16.8 40.1.903741.3.579.2.1285 1970 Unknown [id number] 2.16.8 40.1.607321.3.579.2.1285 1970 Unknown [id number] 2.16.8 40.1.428471.3.579.2.1285 1970 Unknown [id number] 2.16.8 40.1.795995.3.579.2.1285 1970 Unknown [id number] 2.16.8 40.1.118625.3.579.2.1285 1970 Unknown [id number] 2.16.8 40.1.861404.3.579.2.1285 1970 Unknown [id number] 2.16.8 40.1.106474.3.579.2.1285 1970 Unknown [id number] 2.16.8 40.1.462853.3.579.2.1285 1970 Unknown [id number] 2.16.8 40.1.038804.3.579.2.1285 1970 Unknown [id number] 2.16.8 40.1.732631.3.579.2.1285 1970 Unknown [id number] 2.16.8 40.1.331342.3.579.2.1285 1970 Unknown [id number] 2.16.8 40.1.744596.3.579.2.1285 1970 Unknown [id number] 2.16.8 40.1.058781.3.579.2.1285 1970 Unknown [id number] 2.16.8 40.1.411158.3.579.2.1285 1970 Unknown [id number] 2.16.8 40.1.401091.3.579.2.1285 1970 Unknown [id number] 2.16.8 40.1.380640.3.579.2.1285 1970 Unknown [id number] 2.16.8 40.1.355408.3.579.2.1285 1970 Unknown [id number] 2.16.8 40.1.531209.3.579.2.1285 1970 Unknown [id number] 2.16.8 40.1.427207.3.579.2.1285 1970 Unknown [id number] 2.16.8 40.1.952103.3.579.2.1285 1970 Unknown [id number] 2.16.8 40.1.214164.3.579.2.1285 1970 Unknown [id number] 2.16.84 0.1.048514.3.579.2.1285 1970 Unknown [id number] 2.16.84 0.1.701525.3.579.2.1285 1970 Unknown [id number] 2.16.84 0.1.237632.3.579.2.1285 1970 Unknown [id number] 2.16.84 0.1.091998.3.579.2.1285 1970 Unknown [id number] 2.16.84 0.1.831692.3.579.2.1285 1970 Unknown [id number] 2.16.84 0.1.252542.3.579.2.1286 1970 Unknown [id number] 2.16.84 0.1.953749.3.579.2.1286 1970 Unknown [id number] 2.16.84 0.1.703789.3.579.2.1286 1970 Unknown [id number] 2.16.84 0.1.712955.3.579.2.1286 1970 Unknown [id number] 2.16.84 0.1.987742.3.579.2.1286 1970 Unknown [id number] 2.16.84 0.1.732618.3.579.2.1258 1970 Unknown [id number] 2.16.84 0.1.934753.3.579.2.9 1970 Unknown [id number] 2.16.84 0.1.682457.3.579.2.1258 1970 Unknown [id number] 2.16.84 0.1.364757.3.579.2.1258 1970 Unknown [id number] 2.16.84 0.1.294115.3.579.2.1258 1970 Unknown [id number] 2.16.84 0.1.569501.3.579.2.9 1970 Unknown [id number] 2.16.84 0.1.890810.3.579.2.1258 1970 Unknown [id number] 2.16.84 0.1.274985.3.579.2.125 1970 Unknown [id number] 2.16.84 0.1.267050.3.579.2.1258 1970 Unknown [id number] 2.16.84 0.1.115638.3.579.2.1258 1970 Unknown [id number] 2.16.84 0.1.779662.3.579.2.1259 1970 Unknown [id number] 2.16.84 0.1.290850.3.579.2.1259 1970 Unknown [id number] 2.16.84 0.1.550950.3.579.2.1259 Social History Date Type Detail Facility Start: 06-02-1990 End: 03-29-2024 Tobacco smoking status NHIS Occasional tobacco smoker [facility] Start: 06-02-1990 End: 06-02-2018 History of tobacco use Cigarette Smoker [facility] Start: 08-29-2022 End: 12-31-2023 Cigarettes smoked current (pack per day) - Reported 0.3 [facility] Start: 08-29-2022 End: 03-29-2024 Tobacco use and exposure Smokeless tobacco non-user [facility] Start: 07-17-2023 End: 03-30-2024 Alcohol intake Current non-drinker of alcohol (finding) [facility] Start: 07-17-2023 End: 12-31-[address] [facility] Adolescent depressio n screening assessment 0 [facility] Start: 1970 Sex Assigned At Not on file P [facility] Start: 12-31-2023 End: 04-05-2024 Alcoholic beverage intake Lifetime non-drinker (finding) [facility] Start: 01-05-2015 Sex Female (finding) [facility] Medical Equipment Procedure Code Equipment Code Equipment Origin al Text Equipment Identifier Dates Graft Sft Tis 2.5x2.5cm [employer] Simeon Repr - Sna - [id number] Start: 09-19-2022 Prostep Mis Bunionette Implant [...] History: Diagnosis Date Anxiety 2019 Arthritis Asthma ([facility]) 2021 Depression ([facility] Hypertension ([facility]) Menopausal symptoms Personal history of other medical [...] Comments: Presents to clinic ambulating unassisted in [facility]. HENT: Head: Normocephalic and atraumatic. Cardiovascular: [...] Aubrey Anders DPM documented in this encounter [facility] 03-30-2024 History of Present illness Narrative [facility] [address] [place] [address] Patient: Robyn Rahman Sex: female : 1970 Age: 53 y.o. 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 03/30/2024 Robyn Rahman is here for a(n) [...] Patient December-Jan Thoracic spine Physical Therapy at [facility] with continued HEP 3 times [...] 12/05/2017 Performed by Shailesh Vasques MD at [facility] BREAST BIOPSY Left 2003 BENIGN EXCISIONAL BUNIONECTOMY Bilateral CARPAL TUNNEL RELEASE Right COLONOSCOPY N/A 03/12/2019 Performed by Reginald South MD at [facility] DEROTATION ARTHROPLASTY Right 10/09/2023 Performed by Aubrey Anders DPM at [facility] ECTOPIC SURGERY ENDOSCOPIC RESECTION [place] BULLOSA NASAL Left 09/19/2022 Performed by aRvi Jimenez MD PhD at [facility] EXCISION CYST HEAD/NECK Right 06/14/2021 Performed by Ravi Jimenez MD PhD at [facility] INJECTION BLOCK EPIDURAL CAUDAL STEROID N/A 03/07/2023 Performed by Shailesh Vasques MD at [facility] INJECTION BLOCK EPIDURAL CAUDAL STEROID N/A 06/14/2022 Performed by Shailesh Vasques MD at [facility] INJECTION BLOCK EPIDURAL CAUDAL STEROID N/A 12/21/2021 Performed by Shailesh Vasques MD at [facility] INJECTION BLOCK EPIDURAL CAUDAL STEROID N/A 10/12/2021 Performed by Shailesh Vasques MD at [facility] INJECTION BLOCK EPIDURAL CAUDAL STEROID N/A 04/13/2021 Performed by Shailesh Vasques MD at [facility] INJECTION BLOCK EPIDURAL CAUDAL STEROID N/A 12/01/2020 Performed by Shailesh Vasques MD at [facility] INJECTION BLOCK EPIDURAL CAUDAL STEROID N/A 06/30/2020 Performed by Shailesh Vasques MD at [facility] INJECTION BLOCK EPIDURAL STEROID THORACIC: T 7/8 meño N/A 03/12/2024 Performed by Shailesh Vasques MD at [facility] INJECTION BLOCK NERVE KNEE right genicular Right 10/27/2020 Performed by Shailesh Vasques MD at [facility] INJECTION BLOCK NERVE MEDIAL BRANCH: bilat L 1/2 2/3 Bilateral 08/17/2021 Performed by Shailesh Vasques MD at [facility] INJECTION BLOCK NERVE MEDIAL BRANCH: bilat L /2 2/3 Bilateral 12/29/2020 Performed by Shailesh Vasques MD at [facility] INJECTION BURSA LARGE JOINT: left 1st CMC Left 07/19/2022 Performed by Shailesh Vasques MD at [facility] INJECTION BURSA LARGE JOINT: left hip Left 01/31/2023 Performed by Shailesh Vasques MD at [facility] INJECTION BURSA LARGE JOINT: left hip Left 04/05/2022 Performed by Shailesh Vasques MD at [facility] INJECTION BURSA LARGE JOINT: left hip Left 09/14/2021 Performed by Shailesh Vasques MD at [facility] INJECTION BURSA LARGE JOINT: left hip Left 06/08/2021 Performed by Shailesh Vasques MD at [facility] INJECTION BURSA LARGE JOINT: left hip Left 08/11/2020 Performed by Shailesh Vasques MD at [facility] INJECTION BURSA SMALL JOINT Bilat 1st CMC Bilateral 01/30/2024 Performed by Shailesh Vasques MD at [facility] INJECTION BURSA SMALL JOINT Left 1st CMC Left 08/08/2023 Performed by Shailesh Vasques MD at [facility] INJECTION BURSA SMALL JOINT Left 1st CMC Left 04/11/2023 Performed by Shailesh Vasques MD at [facility] INJECTION BURSA SMALL JOINT left 1st cmc Left 09/22/2020 Performed by Shailesh Vasques MD at [facility] INJECTION CAUDAL EPIDURAL WITH CATHETER, STEROID N/A 01/28/2020 Performed by Shailesh Vasques MD at [facility] INJECTION CAUDAL EPIDURAL WITH CATHETER, STEROID N/A 10/15/2019 Performed by Shailesh Vasques MD at [facility] INJECTION CAUDAL EPIDURAL WITH CATHETER, STEROID N/A 03/19/2019 Performed by Shailesh Vasques MD at [facility] INJECTION CAUDAL EPIDURAL WITH CATHETER, STEROID N/A 12/21/2018 Performed by Shailesh Vasques MD at [facility] INJECTION CAUDAL EPIDURAL WITH CATHETER, STEROID N/A 09/14/2018 Performed by Shailesh Vasques MD at [facility] INJECTION CAUDAL EPIDURAL WITH CATHETER, STEROID N/A 08/14/2018 Performed by Shailesh Vasques MD at [facility] INJECTION LARGE JOINT BURSA: left hip Left 02/25/2020 Performed by Shailesh Vasques MD at [facility] INJECTION LARGE JOINT BURSA: left hip Left 01/29/2019 Performed by Shailesh Vasques MD at [facility] INJECTION LARGE JOINT BURSA: right knee Right 05/05/2020 Performed by Shailesh Vasques MD at [facility] INJECTION MEDIAL BRANCH NERVE BLOCK Bilateral L 4/5, 5/1 Bilateral 11/14/2017 Performed by Shailesh Vasques MD at [facility] INJECTION SI JOINT LEFT Left 09/19/2017 Performed by Shailesh Vasques MD at [facility] Left sacroiliac joint injection x1 Left 08/29/2017 Performed by Shailesh Vasques MD at [facility] OSTEOTOMY SUNNY METATARSAL Right 10/09/2023 Performed by Aubrey Anders DPM at [facility] RADIO FREQUENCY ABLATION Left SI joint Left 10/10/2017 Performed by Shailesh Vasques MD at [facility] RADIO FREQUENCY ABLATION: left SI Left 06/19/2018 Performed by Shailesh Vasques MD at [facility] RADIOFREQUENCY ABLATION SPINAL: right L 1/2 2/3 Right 02/15/2022 Performed by Shailesh Vasques MD at [facility] RADIOFREQUENCY ABLATION SPINAL: left L 1/2 2/3 Left 02/01/2022 Performed by Shailesh Vasques MD at [facility] RADIOFREQUENCY ABLATION SPINAL: left L 1/2, 2/3 Left 06/20/2023 Performed by Shailesh Vasques MD at [facility] RADIOFREQUENCY ABLATION SPINAL: right L 1/2, 2/3 Right 05/23/2023 Performed by Shailesh Vasques MD at [facility] RADIOFREQUENCY ABLATION SPINAL: left L45 51rfa Left 01/23/2018 Performed by Shailesh Vasques MD at [facility] RADIOFREQUENCY ABLATION SPINAL: right L45 51rfa Right 01/12/2018 Performed by Shailesh Vasques MD at [facility] RELEASE CARPAL TUNNEL Left 12/08/2017 Performed by Mat Santiago DO at [facility] RESECTION SUBMUCOSAL NASAL Bilateral 09/19/2022 Performed by Ravi Jimenez MD PhD at [facility] SEPTOPLASTY Bilateral 09/19/2022 Performed by Ravi Jimenez MD PhD at [facility] TENOTOMY TENDON SINGLE TOE Right 10/09/2023 Performed [...] Lovell 04/01/24 0843 documented in this encounter [facility] 03-29-2024 History of Present illness Narrative General Surgery H&P Patient's Name/Date of : Robyn Rahman / 1970 (53 y.o.) Reason for consult: Diagnosis Plan 1. Recurrent biliary colic Ambulatory referral to General Surgery Robyn Rahman is a 53 y.o. female presents with chief complaint of Cholelithiasis (Patient has had abdominal pain for over a week . Was seen at [facility] ER last week. Scan showed gall stones. [...] History: Diagnosis Date Anxiety 2020 Arthritis Asthma ([facility]) 2021 Depression ([facility]) Hypertension ([facility]) Menopausal symptoms Personal history of other medical [...] Tobacco Use: High Risk (03/12/2024) Received from [facility] Patient History Smoking Tobacco Use: Some Days Smokeless Tobacco Use: Never Passive Exposure: Not on file Alcohol Use: Not on file Depression: Not at risk (06/27/2021) Received from [facility], [facility] PHQ-2 Total Score: 0 Physical Activity: Not [...] Teofilo Fuentes DO documented in this encounter [facility] 08-21-2023 History of Present illness Narrative [facility] [address] [place] [address] Patient: Robyn Rahman Sex: female : 1970 [...] 12/05/2017 Performed by Shailesh Vasques MD at [facility] BREAST BIOPSY Left 2003 BENIGN EXCISIONAL BUNIONECTOMY Bilateral CARPAL TUNNEL RELEASE Right COLONOSCOPY N/A 03/12/2019 Performed by Reginald South MD at [facility] ECTOPIC SURGERY ENDOSCOPIC RESECTION [place]ULL[place] NASAL Left 09/19/2022 Performed by Ravi Jimenez MD PhD at [facility] EXCISION CYST HEAD/NECK Right 06/14/2021 Performed by Ravi Jimenez MD PhD at [facility] INJECTION BLOCK EPIDURAL CAUDAL STEROID N/A 03/07/2023 Performed by Shailesh Vasques MD at [facility] INJECTION BLOCK EPIDURAL CAUDAL STEROID N/A 06/14/2022 Performed by Shailesh Vasques MD at [facility] INJECTION BLOCK EPIDURAL CAUDAL STEROID N/A 12/21/2021 Performed by Shailesh Vasques MD at [facility] INJECTION BLOCK EPIDURAL CAUDAL STEROID N/A 10/12/2021 Performed by Shailesh Vasques MD at [facility] INJECTION BLOCK EPIDURAL CAUDAL STEROID N/A 04/13/2021 Performed by Shailesh Vasques MD at [facility] INJECTION BLOCK EPIDURAL CAUDAL STEROID N/A 12/01/2020 Performed by Shailesh Vasques MD at [facility] INJECTION BLOCK EPIDURAL CAUDAL STEROID N/A 06/30/2020 Performed by Shailesh Vasques MD at [facility] INJECTION BLOCK NERVE KNEE right genicular Right 10/27/2020 Performed by Shailesh Vasques MD at [facility] INJECTION BLOCK NERVE MEDIAL BRANCH: bilat L 1/2 2/3 Bilateral 08/17/2021 Performed by Shailesh Vasques MD at [facility] INJECTION BLOCK NERVE MEDIAL BRANCH: bilat L 1/2 2/3 Bilateral 12/29/2020 Performed by Shailesh Vasques MD at [facility] BURSA LARGE JOINT: left 1st CMC Left 07/19/2022 Performed by Shailesh Vasques MD at [facility] [place] BURSA LARGE JOINT: left hip Left 01/31/2023 Performed by Shailesh Vasques MD at [facility] INJECTION BURSA LARGE JOINT: left hip Left 04/05/2022 Performed by Shailesh Vasques MD at [facility] INJECTION BURSA LARGE JOINT: left hip Left 09/14/2021 Performed by Shailesh Vasques MD at [facility] INJECTION BURSA LARGE JOINT: left hip Left 06/08/2021 Performed by Shailesh Vasques MD at [facility] INJECTION BURSA LARGE JOINT: left hip Left 08/11/2020 Performed by Shailesh Vasques MD at [facility] INJECTION BURSA SMALL JOINT Left 1st CMC Left 08/08/2023 Performed by Shailesh Vasques MD at [facility] INJECTION BURSA SMALL JOINT Left 1st CMC Left 04/11/2023 Performed by Shailesh Vasques MD at [facility] INJECTION BURSA SMALL JOINT left 1st cmc Left 09/22/2020 Performed by Shailesh Vasques MD at [facility] INJECTION CAUDAL EPIDURAL WITH CATHETER, STEROID N/A 01/28/2020 Performed by Shailesh Vasques MD at [facility] INJECTION CAUDAL EPIDURAL WITH CATHETER, STEROID N/A 10/15/2019 Performed by Shailesh Vasques MD at [facility] INJECTION CAUDAL EPIDURAL WITH CATHETER, STEROID N/A 03/19/2019 Performed by Shailesh Vasques MD at [facility] INJECTION CAUDAL EPIDURAL WITH CATHETER, STEROID N/A 12/21/2018 Performed by Shailesh Vasques MD at [facility] INJECTION CAUDAL EPIDURAL WITH CATHETER, STEROID N/A 09/14/2018 Performed by Shailesh Vasques MD at [facility] INJECTION CAUDAL EPIDURAL WITH CATHETER, STEROID N/A 08/14/2018 Performed by Shailesh Vasques MD at [facility] INJECTION LARGE JOINT BURSA: left hip Left 02/25/2020 Performed by Shailesh Vasques MD at [facility] IN[facility] L[facility]GE JOINT [facility]: left hip Left 01/29/2019 Performed by Shailesh Vasques MD at [facility] LARGE JOINT BURSA: right knee Right 05/05/2020 Performed by Shailesh Vasques MD at [facility] MEDIAL BRANCH NERVE BLOCK Bilateral L 4/5, 5/1 Bilateral 11/14/2017 Performed by Shailesh Vasques MD at [facility] SI JOINT LEFT Left 09/19/2017 Performed by Shailesh Vasques MD at [facility] Left sacroiliac joint injection x1 Left 08/29/2017 Performed by Shailesh Vasques MD at [facility] RADIO FREQUENCY ABLATION Left SI joint Left 10/10/2017 Performed by Shailesh Vasques MD at [facility] RADIO FREQUENCY ABLATION: left SI Left 06/19/2018 Performed by Shailesh Vasques MD at [facility] RADIOFREQUENCY ABLATION SPINAL: right L 1/2 2/3 Right 02/15/2022 Performed by Shailesh Vasques MD at [facility] RADIOFREQUENCY ABLATION SPINAL: left L 1/2 2/3 Left 02/01/2022 Performed by Shailesh Vasques MD at [facility] RADIOFREQUENCY ABLATION SPINAL: left L 1/2, 2/3 Left 06/20/2023 Performed by Shailesh Vasques MD at [facility] RADIOFREQUENCY ABLATION SPINAL: right L 1/2, 2/3 Right 05/23/2023 Performed by Shailesh Vasques MD at [facility] RADIOFREQUENCY ABLATION SPINAL: left L45 51rfa Left 01/23/2018 Performed by Shailesh Vasques MD at [facility] RADIOFREQUENCY ABLATION SPINAL: right L45 51rfa Right 01/12/2018 Performed by Shailesh Vasques MD at [facility] RELEASE CARPAL TUNNEL Left 12/08/2017 Performed by Mat Santiago DO at [facility] RESECTION SUBMUCOSAL NASAL Bilateral 09/19/2022 Performed by Ravi Jimenez MD PhD at [facility] SEPTOPLASTY Bilateral 09/19/2022 Performed by Ravi Jimenez MD PhD at [facility] Allergies Allergen Reactions Bactrim [Sulfamethoxazole-Trimethoprim] Hives Family [...] Lovell 08/21/23 1300 documented in this encounter [facility] 07-17-2023 History of Present illness Narrative [facility] [address] [place] [address] Patient: Robyn Rahman Sex: female : 1970 Age: 52 y.o. 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 07/17/2023 Robyn Rahman is here for a(n) [...] 12/05/2017 Performed by Shailesh Vasques MD at [facility] BREAST BIOPSY Left 2003 BENIGN EXCISIONAL BUNIONECTOMY Bilateral CARPAL TUNNEL RELEASE Right COLONOSCOPY N/A 03/12/2019 Performed by Reginald South MD at [facility] ECTOPIC SURGERY ENDOSCOPIC RESECTION [place] NASAL Left 09/19/2022 Performed by Ravi Jimenez MD PhD at [facility] EXCISION CYST HEAD/NECK Right 06/14/2021 Performed by Ravi Jimenez MD PhD at [facility] INJECTION BLOCK EPIDURAL CAUDAL STEROID N/A 03/07/2023 Performed by Shailesh Vasques MD at [facility] IN[facility]CTION BLOCK EPIDURAL CAUDAL STEROID N/A 06/14/2022 Performed by Shailesh Vasques MD at [facility] IN[facility]CTION BLOCK EPIDURAL CAUDAL STEROID N/A 12/21/2021 Performed by Shailesh Vasques MD at [facility] INJECTION BLOCK EPIDURAL CAUDAL STEROID N/A 10/12/2021 Performed by Shailesh Vasques MD at [facility] IN[facility]CTION BLOCK EPIDURAL CAUDAL STEROID N/A 04/13/2021 Performed by Shailesh Vasques MD at [facility] IN[facility] BLOCK EPIDURAL CAUDAL STEROID N/A 12/01/2020 Performed by Shailesh Vasques MD at [facility] IN[facility]CTION BLOCK EPIDURAL CAUDAL STEROID N/A 06/30/2020 Performed by Shailesh Vasques MD at [facility] BLOCK NERVE KNEE right genicular Right 10/27/2020 Performed by Shailesh Vasques MD at [facility] BLOCK NERVE MEDIAL BRANCH: bilat L 1/2 2/3 Bilateral 08/17/2021 Performed by Shailesh Vasques MD at [facility] BLOCK NERVE MEDIAL BRANCH: bilat L 1/2 2/3 Bilateral 12/29/2020 Performed by Shailesh Vasques MD at [facility] BURSA LARGE JOINT: left 1st CMC Left 07/19/2022 Performed by Shailesh Vasques MD at [facility] BURSA LARGE JOINT: left hip Left 01/31/2023 Performed by Shailesh Vasques MD at [facility] BURSA LARGE JOINT: left hip Left 04/05/2022 Performed by Shailesh Vasques MD at [facility] BURSA LARGE JOINT: left hip Left 09/14/2021 Performed by Shailesh Vasques MD at [facility] BURSA LARGE JOINT: left hip Left 06/08/2021 Performed by Shailesh Vasques MD at [facility] BURSA LARGE JOINT: left hip Left 08/11/2020 Performed by Shailesh Vasques MD at [facility] BURSA SMALL JOINT Left 1st CMC Left 04/11/2023 Performed by Shailesh Vasques MD at [facility] BURSA SMALL JOINT left 1st cmc Left 09/22/2020 Performed by Shailesh Vasques MD at [facility] CAUDAL EPIDURAL WITH CATHETER, STEROID N/A 01/28/2020 Performed by Shailesh Vasques MD at [facility] IN[facility] CAUDAL EPIDURAL WITH CATHETER, STEROID N/A 10/15/2019 Performed by Shailesh Vasques MD at [facility] IN[facility]CTION CAUDAL EPIDURAL WITH CATHETER, STEROID N/A 03/19/2019 Performed by Shailesh Vasques MD at [facility] INJECTION CAUDAL EPIDURAL WITH CATHETER, STEROID N/A 12/21/2018 Performed by Shailesh Vasques MD at [facility] INJECTION CAUDAL EPIDURAL WITH CATHETER, STEROID N/A 09/14/2018 Performed by Shailesh Vasques MD at [facility] INJECTION CAUDAL EPIDURAL WITH CATHETER, STEROID N/A 08/14/2018 Performed by Shailesh Vasques MD at [facility] INJECTION LARGE JOINT BURSA: left hip Left 02/25/2020 Performed by Shailesh Vasques MD at [facility] [place] LARGE JOINT BURSA: left hip Left 01/29/2019 Performed by Shailesh Vasques MD at [facility] [place] LARGE JOINT BURSA: right knee Right 05/05/2020 Performed by Shailesh Vasques MD at [facility] [place] MEDIAL BRANCH NERVE BLOCK Bilateral L 4/5, 5/ Bilateral 11/14/2017 Performed by Shailesh Vasques MD at [facility] INJECTION SI JOINT LEFT Left 09/19/2017 Performed by Shailesh Vasques MD at [facility] Left sacroiliac joint injection x1 Left 08/29/2017 Performed by Shailesh Vasques MD at [facility] RADIO FREQUENCY ABLATION Left SI joint Left 10/10/2017 Performed by Shailesh Vasques MD at [facility] RADIO FREQUENCY ABLATION: left SI Left 06/19/2018 Performed by Shailesh Vasques MD at [facility] RADIOFREQUENCY ABLATION SPINAL: right L 1/2 2/3 Right 02/15/2022 Performed by Shailesh Vasques MD at [facility] RADIOFREQUENCY ABLATION SPINAL: left L 1/2 2/3 Left 02/01/2022 Performed by Shailesh Vasques MD at [facility] RADIOFREQUENCY ABLATION SPINAL: left L 1/2, 2/3 Left 06/20/2023 Performed by Shailesh Vasques MD at [facility] RADIOFREQUENCY ABLATION SPINAL: right L 1/2, 2/3 Right 05/23/2023 Performed by Shailesh Vasques MD at [facility] RADIOFREQUENCY ABLATION SPINAL: left L45 51rfa Left 01/23/2018 Performed by Shailesh Vasques MD at [facility] RADIOFREQUENCY ABLATION SPINAL: right L45 51rfa Right 01/12/2018 Performed by Shailesh Vasques MD at [facility] RELEASE CARPAL TUNNEL Left 12/08/2017 Performed by Mat Santiago DO at [facility] RESECTION SUBMUCOSAL NASAL Bilateral 09/19/2022 Performed by Ravi Jimenez MD PhD at [facility] SEPTOPLASTY Bilateral 09/19/2022 Performed by Ravi Jimenez MD PhD at [facility] Allergies Allergen Reactions Bactrim [Sulfamethoxazole-Trimethoprim] Hives Family [...] Lovell 07/17/23 1205 documented in this encounter [facility] 07-17-2023 Instructions Samantha Schulz CNA - 07/17/2023 [...] back to normal. documented in this encounter [facility] Evaluation note Diagnosis 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- Primary 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- Primary 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 documented in this encounter [facility]* Diagnosis Lumbar spondylosis- Primary Lumbosacral spondylosis without myelopathy documented in this encounter [facility]* Diagnosis Recurrent biliary colic Calculus of gallbladder without mention of cholecystitis or obstruction documented in this encounter [facility]* Diagnosis Lumbar spondylosis- Primary Lumbosacral spondylosis without myelopathy documented in this encounter [facility]* Diagnosis S/P foot surgery- Primary Other postprocedural status Right foot pain Pain in soft tissues of limb documented [facility]Not on filedocumented in this encounterProC[facility] SystemInstructionsNot on filedocumented in this encounterProThe [facility] Summary Purpose Family History No Family History [...] PA [address] [place] [address] Referral ID Status Reason Start Date Expiration Date V isits Requested Visits Authorized [id number] Pending Review 07/17/2023 07/16/2024 1 1 Additional Source Comments INFORMATION SOURCE (unrecogn ized section and content) DATE CREATED AUTHOR 08/11/2022 [facility] DATE CREATED AUTHOR AUTHOR'S ORGANIZ ATION 11/19/2023 [facility] DATE CREATED AUTHOR AUTHOR'S ORGANIZ ATION 12/03/2023 [facility] DATE CREATED AUTHOR AUTHOR'S ORGANIZ ATION 04/01/2024 [facility] DATE CREATED AUTHOR AUTHOR'S ORGANIZ ATION 04/06/2024 [facility] d[facility] Specialists EPIC Reason for Visit (unrecogniz ed section and content) Reason Comments Back Pain Reason Comments Back Pain Hand Pain Reason Comments Cholelithiasis Patient has had abdo giovanna pain for over a week . Was seen at [facility] ER last week. Scan showed gall stones. Specialty Diagnoses / Procedures Referred By Sen wilkes Referred To Contact General Surgery Diagnoses Calculus of gallbladder with acute on chronic cholecystitis without obstruction Procedures [place] OFFICE/OUTPATIENT [facility] MDM 60 MINUTES Saurabh Fuentes, [address] [address] Phone: tel: fax: Saurabh Fuentes [address] [place] [address] Phone: tel: fax: Referral ID Status Reason Start Date Expiration Date V isits Requested Visits Authorized [id number] Closed Specialty Services Required 03/23/2024 09/19/2024 1 1 Reason Comments Back Pain Reason Comments Post-op Established pt prese nts today for POV#4, DOS: 10/09/23, right foot. Pt relates pinky toe will become swollen and red sometimes, but otherwise doing well. Care Teams (unrecognized sec tion and content) Hand Stoner Relationship Specialty Start Date End Date Pastora Ledesma APRN-UX DEVELOPER DESIGNER [address] [place] [address] PCP - General Family Medicine 12/10/18 Hand Stoner Relationship Specialty Start Date End Date Pastora Ledesma APRN-UX DEVELOPER DESIGNER [address] [place], [place] [id number] PCP - General Family Medicine 12/10/18 Hand Stoner Relationship Specialty Start Date End Date Sandra Gonzalez MD [address] [place] [address] PCP - General Pediatrics 08/12/23 Pastora Leedsma MD [address] [place] [address] Referring Physician Family Medicine 08/12/23 Hand Stoner Relationship Specialty Start Date End Date Sandra Gonzalez MD [address] [place] [address] PCP - General Pediatrics 08/12/23 Pastora Ledesma MD [address] [place] [address] Referring Physician Family Medicine 08/12/23 Hand Stoner Relationship Specialty Start Date End Date Pastora Ledesma, UTILITY WORKER [employer] [address] [place] [address] PCP - General Family Medicine 12/10/18 Hand Stoner Relationship Specialty Start Date End Date Sandra Gonzalez MD [address] [place] [address] PCP - General Pediatrics 08/12/23 Pastora Ledesma MD [address] [place] [address] Referring Physician Family Medicine 08/12/23 FOR RECORDS [...] BE BASED ON THE PRIMARY CLINICAL RECORDS. [facility]. provides no warranty or guarantee of the accuracy or completeness of information in this document.
[2024-04-13] MEDS: INDOCYANINE GREEN 25 MG VIAL 5 MG INJ (11:06)
[2024-04-13] MEDS: LACTATED RINGER'S SOLUTION 1,000 ML 50 ML IV ×2 (11:06→14:15)
--- NOTE | 2024-04-13 12:24 | W.PM.PROCNOT ---
Date of procedure: 04/13/24 Pre-op diagnosis: symptomatic cholelithiasis Procedure: Procedure: Robotic assisted laparoscopic cholecystectomy with TAP block The patient was brought to the operating room and placed supine on the operating room table. Cardiopulmonary monitoring was initiated. General anesthesia was induced without any complication. A time-out was performed. Pre-operative antibiotics were given. EPC cuffs were on the lower extremities. The abdomen was prepped and draped in the usual sterile fashion. The abdomen was entered approximately 12-14 cm distal to the xiphoid process and to the left of the midline. To do this a skin incision was made. A 5mm 0 degree laparoscope was then introduced using an optical access trocar. Pneumoperitoneum was then established through this trocar. Once pneumoperitoneum was created 2 additional 8 mm Da Jonathan ports were placed under direct visualization in the mid left and left lateral abdomen along the same line just superior to the umbilicus. A 4th 8mm RUQ port was placed then as well under direct visualization. The 5mm optiview port was then upsized to a 12mm robotic port under direct visualization. Prior to proceeding with the operation, an intraoperative TAP block was performed. ?Under visualization with the laparoscope, a needle was inserted percutaneously and, confirming that I was in the right plane, 30 mL of a mixture of Ropivacaine and Decadron were injected on both sides for a total of 60 ml. ?Good separation of the muscle planes was seen bilaterally indicating good placement of the anesthetic solution. The da Jonathan machine was then docked and a camera placed without complication. A monopolar hook was then placed in the right arm and a fenestrated bipolar grasper was placed in the left arm.? Filmy adhesions between the gallbladder and the omentum were lysed carefully with electrocautery.? The fundus of the gallbladder was grasped and directed towards the patient's right shoulder.? The infundibulum of the gallbladder was grasped with a bipolar grasper.? The gallbladder was positioned so that the cystic duct was at a right angle to the common bile duct in order to expose Calot's triangle. The peritoneum between the gallbladder and the liver was taken down by electrocautery to further mobilize the triangle.? The fibrous tissue was hooked with meticulous electrocautery.? Hook electrocautery was used to identify the cystic duct. The cystic duct was skeletonized with electrocautery.? Dissection was continued to locate the cystic artery.? The cystic artery was skeletonized with electrocautery. Critical view was obtained in the anterior and posterior window.? All fat and fibrous tissue was dissected from the cystohepatic triangle with careful hook electrocautery. The cystic plate of the liver was skeletonized with hook electrocautery.? Both the cystic duct and cystic artery were the only structures visualized entering into the gallbladder. Firefly was used to confirm identification of the cystic duct.? The critical view of safety was confirmed. The cystic duct was ligated with double Hemoclips, and then divided with Endoshears. The cystic artery was ligated with a Hemoclip and divided with Endoshears. The gallbladder was dissected from the liver bed with electrocautery.? The gallbladder was then placed into the Endopouch and delivered from the body at the umbilicus incision.? The bed was then inspected.? Hemostasis was achieved with electrocautery. The cystic duct and artery stumps were identified. All clips remained on both the cystic artery and the cystic duct stump.? No sign of bile leak or bleeding from the duct or artery stump. The da Jonathan was undocked from the patient.?The camera and the left umbilical port were removed from the abdomen. The umbilical fascia was closed with an 0 Vicryl suture with a needle nose suture passer and a Myke-Heidi needle under direct visualization.? Working ports were removed.? All incisions were closed with simple subcuticular 4-0 Monocryl sutures.? Incisions were cleaned and dressed with Dermabond. All sponge, needle and instrument counts were correct prior to closure and the patient tolerated the procedure well without any apparent complication. The patient was extubated and then taken to recovery in stable Anesthesia: SHINE Surgeon: Jose Eduardo Fuentes Estimated blood loss (mL): 3 Pathology: other (gallbladder and contents ) Condition: stable Disposition: PACU
[2024-04-13] MEDS: CEFAZOLIN SODIUM 2 GM/50 ML D5W PREMIX IV (13:38)
[2024-04-13] MEDS: BUPIVACAINE LIPOSOME/PF 266 MG/13.3 ML VIAL INJ (14:05)
[2024-04-13] MEDS: 0.9 % SODIUM CHLORIDE 10 ML VIAL 20 ML INJ (14:05)
[2024-04-13] MEDS: BUPIVACAINE HCL 0.25% PF 25 MG/10 ML VIAL 20 ML INJ (14:05)
[2024-04-13] MEDS: HYDROMORPHONE HCL 0.5 MG/0.5 ML SYRINGE IV (15:41)
[2024-04-13] MEDS: OXYCODONE HCL/ACETAMINOPHEN 5MG/325MG 1 TAB PO (16:06)
== END 2024-04-13 16:53 | disposition home or self-care (01) ==
PROVIDERS: Visit Provider Surgery
PROC: (CPT 790; principal; 2024-04-13 11:35)
DX: K80.10 Calculus of gallbladder with chronic cholecystitis without obstruction (principal); Z98.51 Tubal ligation status; F17.210 Nicotine dependence, cigarettes, uncomplicated; J45.909 Unspecified asthma, uncomplicated; I10 Essential (primary) hypertension; M06.9 Rheumatoid arthritis, unspecified
CPT/HCPCS: 47562; 88304; J0665; J0690; J1100; J1171; J1885; J2250; J2371; J2405; J2704; J3010

== ENCOUNTER 2024-05-30 21:59 | Emergency (ER) | payer MEDICAID, SELFPAY ==
--- OUTSIDE RECORDS SUMMARY | 2024-05-30 22:04 | XMS_ITS | CCD ---
Author Organization [facility] CliniSymd Care Team Providers Care Occupational Health And Safety Officer Name Role Phone DR HOLLIE SERVIN Consulting Unavailable [facility]AC[facility] Primary Care Unava ilable DR HOLLIE SERVIN Attending Unavailable DR HOLLIE SERVIN Admitting Unavailable UNLU, DAYO Consulting Unavailable Anglim CERTIFIED SURGICAL TECH/FIRST ASSISTANT-STRUCTURAL WORKER, Pastora A Primary Care Provider AMBER GONSALEZ Referring Unavailable ANGLIM, PASTORA A Primary Care Unavailable Anglim Pastora FUENTES Unavailable Sandra Gonzalez MD Primary Care Provider SHAILESH VASQUES Attending Unavailable SHAILESH VASQUES Referring Unavailable ANGLIM, PASTORA A Primary Care Unavailable SHAILESH VASQUES Admitting Unavailable SHAILESH VASQUES Attending Unavailable ANGLIM, PASTORA A Referring Unavailable ANGLIM, PASTORA A Primary Care Unavailable ALYCIA KAMARA Attending Unavailable ANGLIM, PASTORA A Primary Care Unavailable RACHEL MCKEON Attending Unavailable ANGLIM, PASTORA A Referring Unavailable ANGLIM, PASTORA A Primary Care Unavailable WANDAENBERGRACHEL Attending Unavailable ANGLIM, PASTORA A Referring Unavailable [...] Unavailable ANGLIM, PASTORA A Primary Care Unavailable KADEHER, AUBREY S Admitting Unavailable RUSHERAUBREY Attending Unavailable RUSHER, AUBREY S Referring Unavailable ANGLIM, PASTORA A Primary Care Unavailable RACHELE DENNEY Attending Unavailable ANGLIM, PASTORA A Primary Care Unavailable RUSHER, AUBREY Black Attending Unavailable RUSHERAUBREY Referring Unavailable ANGLIM, PASTORA A Primary Care [...] Unavailable ANGLIM, PASTORA A Primary Care Unavailable AMBER GONSALEZ Attending Unavailable WALLACEAMBER Referring Unavailable ANGLIM, PASTORA A Primary Care [...] Care Unavailable VASQUES, SHAILESH Olmos Attending Unavailable VASQUESSHAILESH Referring Unavailable ANGLIM, PASTORA A Primary Care Unavailable OFELIA MAXWELL Attending Unavail able ANGLIM, PASTORA A Primary Care Unavailable NIENBERG, RACHEL Black Attending Unavailable ANGLIM, PASTORA A Referring Unavailable ANGLIM, PASTORA A Primary Care Unavailable SHAILESH VASQUES E Attending Unavailable VASQUES, SHAILESH E Referring Unavailable ANGLIM, PASTORA A Primary Care Unavailable SHAILESH VASQUES E Admitting Unavailable VASQUES, SHAILESH E Attending Unavailable ANGLIM, PASTORA A Referring Unavailable ANGLIM, PASTORA A Primary Care Unavailable RACHEL MCKEON Attending Unavailable ANGLIM, PASTORA A Referring Unavailable ANGLIM, PASTORA A Primary Care Unavailable Mary, Saurabh Attending Unavailable Mary, Saurabh Admitting Unavailable Mary Quang SCHULTZle Attending Provider RUSHER, AUBREY S Attending Unavailable ANGLIM, PASTORA [...] Referring Unavailable RUSHER, AUBREY S Attending Unavailable MARY, SAURABH Attending Unavailable WALLACE, AMBER L Attending Unavailable ANGLIM, PASTORA A Referring Unavailable ANGLIM, PASTORA A Primary Care Unavailable WALLACE, AMBER L Attending Unavailable ANGLIM, PASTORA A Referring Unavailable ANGLIM, PASTORA A Primary Care Unavailable WALLACE, AMBER L Attending Unavailable ANGLIM, PASTORA A Referring Unavailable ANGLIM, PASTORA A Primary Care Unavailable Allergies Allergy Classification Reported Allergen(s) Allergy Type Date of Onset Reaction(s) Facility Sulfamethoxazole / Trimethoprim (1 source) Sulfamethoxazole / Trimethoprim; Translations: [SULFAMETHOXAZOLE-T RIMETHOPRIM] Drug Allergy 08-26-[address] [facility] [place] [facility] (1 source) Sulfamethoxazole / Trimethoprim Drug Allergy 05-05-20 [facility] Repository (16 sources) Sulfamethoxazole / Trimethoprim; Translations: [SULFAMETHOXAZOLE-T RIMETHOPRIM] Drug Allergy 08-26-19 18 [facility] (10 sources) House dust mite Propensity to adverse reactions 02-25-20 19 Unknown [facility] (10 sources) Pollen Propensity to adverse reactions 02-25-20 19 Unknown [facility] (10 sources) Dog Epithelium (Canis Lupus Familiaris) Propensity to adverse reactions 02-25-20 19 Unknown [facility] (10 sources) Mixed Ragweed Propensity to adverse reactions 02-25-20 19 Unknown [facility] Healthcare Medications Current Medications Medication Drug Class(es) Dates Sig (Normalized) Sig (Original) [id number] actuat albuterol 0.09 mg/actuat metered dose inhaler (4 sources) beta2-Adrenergic Agonist Start: 05-04-2021 take 2 puff(s) by inhalation every four to six hours for wheezing albuterol (PROVENTIL HFA;VENTOLIN HFA) 90 mcg/actuation inhaler inhale 2 puffs every 4 to 6 hours if needed for shortness of breath and wheezing 05/04/2021 Active ARIPiprazole 5 mg oral tablet (14 sources) Atypical Antipsychotic Start: 06-25-2021 take 1 tablet by mouth once daily ARIPiprazole (ABILIFY) 5 mg tablet Take 1 tablet (5 mg total) by mouth nightly. 06/25/2021 Active ascorbic acid/zinc/elderberr y (SAMBUCUS ELDERBERRY ORAL) (4 sources) ascorbic acid/zinc/elderber ry (SAMBUCUS ELDERBERRY ORAL) Take by mouth. Active ascorbic acid/zi nc/elderberry (SAMBUCUS ELDERBERRY ORAL) Take by mouth. 0 Active baclofen 10 mg oral tablet (14 sources) gamma-Aminobutyric Acid-ergic Agonist Start: 01-08-2022 take 1 tablet by mouth three times daily baclofen (LIORESAL) 10 mg tablet Take 1 tablet (10 mg total) by mouth 3 (three) times a day. 90 tablet 3 01/08/2022 Active baclofen (Liores al) 20 MG tablet PRN Active busPIRone hydrochloride 30 mg oral tablet (14 sources) Start: 06-25-2021 take 1 tablet by mouth in the morning busPIRone (BUSPAR) 30 mg tablet Take 30 mg by mouth in the morning and 30 mg before bedtime. 06/25/2021 Active busPIRone (Buspa r) 30 MG tablet every 12 (twelve) hours Active citalopram 40 mg oral tablet (14 sources) Serotonin Reuptake Inhibitor take 0.5 tablet by mouth in the morning citalopram (CeleXA) 40 mg tablet Take 0.5 tablets (20 mg total) by mouth in the morning. Active citalopram (Melanie XA) 40 MG tablet Take 20 mg by mouth in the morning. Active clotrimazole 10 mg/ml topical cream (10 sources) Azole Antifungal Start: 08-05-2023 clotrimazole (Lotrimin) 1 % cream APPLY DAILY TO SKIN TO AFFECTED AREA TWICE A DAY FOR 2 WEEKS 08/05/2023 Active estradiol 0.1 mg/ml vaginal cream (2 sources) Estrogen Start: 11-17-2023 estradioL (ESTRACE) 0.01 % (0.1 mg/gram) vaginal cream Indications: Cystocele with uterine prolapse , Urinary, incontinence, stress female Insert 1 g into the vagina in the morning. 42.5 g 1 11/17/2023 Active fexofenadine hydrochloride 180 mg oral tablet (14 sources) Histamine-1 Receptor Antagonist Start: 07-23-2019 take 1 tablet by mouth in the morning ALLERGY RELIEF, FEXOFENADINE, 180 mg tablet Take 1 tablet (180 mg total) by mouth in the morning. 07/23/2019 Active Fish Oils (10 sources) take 1 capsule by mouth every eight hours omega-3 (Fish Oil) 500 MG capsule 1 capsule every 8 (eight) hours Active fluticasone propionate 0.05 mg/actuat metered dose nasal spray (13 sources) Corticosteroid take 1 spray(s) nasal route twice daily fluticasone propionate (FLONASE) 50 mcg/actuation nasal spray SPRAY 1 SPRAY INTO EACH NOSTRIL TWICE A DAY FOR 30 DAYS Active take 1 spray(s) nasal route twic e daily fluticasone (Flonase) 50 MCG/ACT nasal spray SPRAY 1 SPRAY INTO EACH NOSTRIL TWICE A DAY FOR 30 DAYS Active guaiFENesin 400 mg oral tablet (4 sources) Start: 05-10-2019 take 1 tablet by mouth every four hours as needed MUCUS RELIEF 400 mg tablet 1 tablet (400 mg total) every 4 (four) hours as needed. 05/10/2019 Active hydrOXYzine pamoate 50 mg oral capsule (14 sources) Antihistamine Start: 06-25-2021 take 1 capsule by mouth in the morning, then take 1 capsule by mouth at bedtime hydrOXYzine (VISTARIL) 50 mg capsule Take 1 capsule (50 mg total) by mouth in the morning and 1 capsule (50 mg total) before bedtime. 06/25/2021 Active ibuprofen 800 mg oral tablet (11 sources) Nonsteroidal Anti-inflammatory Drug take 1 tablet by mouth three times daily as needed ibuprofen 800 MG tablet TAKE 1 TABLET BY MOUTH THREE TIMES A DAY NEEDED WITH FOOD OR MILK for 30 Active lamoTRIgine 100 mg oral tablet (14 sources) Mood Stabilizer, Anti-epileptic Agent Start: 06-25-2021 take 1 tablet by mouth in the morning lamoTRIgine (LaMICtal) 100 mg tablet Take 1 tablet (100 mg total) by mouth in the morning. 06/25/2021 Active lisinopril 5 mg oral tablet (14 sources) Angiotensin Converting Enzyme Inhibitor Start: 02-24-2019 take 1 tablet by mouth once daily lisinopril (PRINIVIL,ZESTRIL) 5 mg tablet take 1 tablet by mouth once daily (NOTE DECREASED DOSE) 0 02/24/2019 Active meclizine hydrochloride 25 mg chewable tablet (14 sources) Antiemetic meclizine (ANTIV ERT) 25 mg tablet Chew 1 tablet (25 mg total) and swallow 3 (three) times a day as needed for dizziness. Active methylPREDNISolone (10 sources) Corticosteroid Start: 08-12-2023 methylPREDNISolone (Medrol Dospak) 4 MG tablets Indications: Bursitis of right foot Take as directed on package. 21 tablet 08/12/2023 Active montelukast 10 mg oral tablet (14 sources) Leukotriene Receptor Antagonist Start: 05-02-2022 take 1 tablet by mouth in the morning montelukast (SINGULAIR) 10 mg tablet Take 1 tablet (10 mg total) by mouth in the morning. 05/02/2022 Active Multiple Vitamin (Multi Vitamin) tablet (10 sources) Multiple Vitamin (Multi Vitamin) tablet TAKE 1 TABLET BY MOUTH EVERY DAY FOR 30 DAYS for 30 Active multivitamin (THERAGRAN) tablet (4 sources) Start: 04-15-2022 take 1 tablet by mouth in the morning multivitamin (THERAGRAN) tablet Take 1 tablet by mouth in the morning. 04/15/2022 Active Start: 04-15-2022 take 1 tablet by barbi th in the morning multivitamin (THERAGRAN) tablet Take 1 tablet by mouth in the morning. 0 04/15/2022 Active ycdeaxkmytsu-Bm-mzuj-mineral s tablet (3 sources) multivitamin-Ca- iron-minerals tablet TAKE 1 TABLET BY MOUTH EVERY DAY FOR 30 DAYS for 30 Active multivitamin-Ca- iron-minerals tablet TAKE 1 TABLET BY MOUTH EVERY DAY FOR 30 DAYS for 30 0 Active mupirocin 0.02 mg/mg topical ointment (14 sources) RNA Synthetase Inhibitor Antibacterial Start: 09-18-2022 mupirocin (BACTR OBAN) 2 % ointment Applied intranasally bilaterally 2 times daily 15 g 09/18/2022 Active Start: 09-18-2022 mupirocin (Milton troban) 2 % ointment Applied intranasally bilaterally 2 times daily 09/18/2022 Active omega 1-zpo-dxy-fish oil (Fish OiL) 300-1,000 mg capsule (4 sources) take 300-1000 mg by mouth in the morning omega 2-mjv-whd-fish oil (Fish OiL) 300-1,000 mg capsule Take 1 tablet by mouth in the morning. Active take 300-1000 mg by mouth in the morning omega 9-zvw-dog-fish oil (Fish OiL) 300-1,000 mg capsule Take 1 tablet by mouth in the morning. 0 Active omega 5-bso-blm-fish oil 60-90-500 mg capsule,delayed release(DR/EC) (3 sources) take 1 capsule by mouth every eight hours omega 7-mtb-pjz-fish oil 60-90-500 mg capsule,delayed release(DR/EC) 1 capsule every 8 (eight) hours. Active take 1 capsule by [facility] [place] every eight hours omega 6-btg-job-fish oil 60-90-500 mg capsule,delayed release(DR/EC) 1 capsule every 8 (eight) hours. 0 Active prazosin 1 mg oral capsule (14 sources) alpha-Adrenergic Alecia Start: 06-24-2022 prazo sin (MINIPRESS) 1 mg capsule 2 capsules (2 mg total) once daily at bedtime. 06/24/2022 Active prazosin (Minipr ess) 2 MG capsule 1 (one) time each day at the same time Active traZODone hydrochloride 50 mg oral tablet (14 sources) Serotonin Reuptake Inhibitor Start: 07-26-2021 traZODone (DESYREL) 50 mg tablet 3 tablets (150 mg total). 07/26/2021 Active traZODone (Desyr el) 150 MG tablet 1 (one) time each day at the same time Active triamcinolone acetonide 5 mg/ml topical cream (10 sources) Corticosteroid Start: 11-27-2022 triamcinolone (Kenalog) 0.5 % cream 1 Application every 12 (twelve) hours 11/27/2022 Active Turmeric extract (10 sources) Turmeric 500 MG capsule 1 (one) time each day at the same time Active turmeric/turmeric ext/pepr ext (turmeric-turmeric ext-pepper) 500-3 mg capsule (3 sources) turmeric/turmeri c ext/pepr ext (turmeric-turmeric ext-pepper) 500-3 mg capsule With cumin and seamoss Active turmeric/turmeri c ext/pepr ext (turmeric-turmeric ext-pepper) 500-3 mg capsule With cumin and seamoss 0 Active vitamin b12 1 mg oral tablet (14 sources) Vitamin B12 Start: 01-28-2023 take 1 [...] 09-24-2023 Chronic Genitourinary symptoms and ill-defined conditions (2 sources) Female stress incontinence; Translations: [Stress incontinence (female) (male)] Onset: 11-17-2023 05-10-2024 Chronic Headache; including migraine (4 sources) Headache; including migraine; Translations: [HEADACHE UNSPECIFIED] Onset: 08-08-2022 Osteoarthritis (20 sources) Localized, primary osteoarthritis of the wrist; Translations: [Primary osteoarthritis, left wrist] Onset: 04-20-2020 07-17-2023 Chronic Other aftercare (1 source) Other terminal operations supervisor (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) 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 therapy; Translations: [OTH ROD PULLER AND COILER CURRENT DRUG THERAPY] Onset: 08-10-2022 Episodic Other connective tissue disease (2 sources) Pain in right foot; Translations: [Pain in right foot] 04-05-2024 Episodic Other nervous system disorders (10 sources) Carpal tunnel syndrome of left wrist; Translations: [Carpal tunnel syndrome, left upper limb] Onset: 08-12-2023 08-12-2023 Chronic Other upper respiratory infections (4 sources) Chronic sinusitis; Translations: [Other chronic sinusitis] Onset: 03-11-2022 07-31-2022 Chronic Prolapse of female genital organs (4 sources) Uterovaginal prolapse, unspecified; Translations: [Uterovaginal prolapse, unspecified] Onset: 11-17-2023 05-10-2024 Chronic Residual codes; unclassified (2 sources) History of operative procedure on foot; Translations: [Other specified postprocedural states] 04-05-2024 Episodic Spondylosis; intervertebral disc disorders; other back problems (20 sources) Lumbar spondylosis; Translations: [Spondylosis without myelopathy or radiculopathy, lumbar region] Onset: 11-12-2017 05-23-2023 Chronic Substance-related disorders (1 source) Nicotine dependence, cigarettes, uncomplicated; Translations: [Nicotine dependence, cigarettes, uncomplicated] Onset: 10-01-2023 Chronic Unclassified (1 source) 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 [M19.032] Onset: 08-08-2023 Unclassified (1 source) Pessary; fitting Onset: 12-02-2023 Unclassified (1 source) Vaginal Prolapse Onset: 11-17-2023 Past or Other Problems Problem Classification Problem Date Documented Date Episodic/Chronic Mood disorders (4 sources) Mood disorders Onset: 06-27-2021 06-27-2021 Other connective tissue disease (1 source) Pain in right hand; Translations: [Pain in right hand] Onset: 11-13-2023 Episodic Other connective tissue disease (1 source) Hand pain Onset: 08-21-2023 Episodic Other non-traumatic joint disorders (14 sources) Hip pain; Translations: [Pain in left hip] Onset: 01-21-2019 01-14-2023 Episodic Other skin disorders (14 sources) Mass of neck; Translations: [Localized swelling, mass and lump, neck] Onset: 04-23-2021 04-23-2021 Episodic Other upper respiratory disease (14 sources) Deviated nasal septum; Translations: [Deviated nasal septum] Onset: 07-31-2022 07-31-2022 Episodic Other upper respiratory disease (14 sources) Jessica bullosa; Translations: [Other specified disorders of nose and nasal sinuses] Onset: 09-04-2022 09-04-2022 Episodic Residual codes; unclassified (1 source) Other specified postprocedural states; Translations: [Other specified postprocedural states] Onset: 10-09-2023 Episodic Spondylosis; intervertebral disc disorders; other back problems (20 sources) Disorder of sacrum; Translations: [Sacrococcygeal disorders, not elsewhere classified] Onset: 08-25-2017 06-17-2018 Episodic Results Test Name Value Interpretation Reference Range Facility Pathology study report docum entOrdered By: Avelino Brock on 04-15-2024 Pathology study [facility] Other Ilia 04-13-2024 L - -------- Specimen: [id number] Received: 04/14/24 Status: GEETA Moore Num: [id number] Spec Type: Surgical Subm Dr: Saurabh Fuentes DO Tissues: A Gallbladder (GALLBLADDER AND CONTENTS) Procedures: HE/4, Gross/Micro L3 -------- Age/ Patient Sex Location Account Attending Physician -------- Robyn Rahman Ab 53/F [facility] [id number] Sauarbh Fuentes, DO -------- SPEC NUM: [id number] RECD: 04/14/24 STATUS: GEETA ANITA NUM: [id number] GIULIANO: 04/13/[address] [facility] [address]: Saurabh Fuentes DO ENTERED: 04/14/[address] [facility] [address]: Nash Marroquin SPEC TYPE: Surgical DEPT: MISA HANSEN ENTERED BY: [id number] RECV BY: [id number] ORDERED: HE/4, Gross/Micro L3 ORDERED: HE/4, Gross/Micro L3 Pathological Diagnosis Gallbladder, cholecystectomy: -Mild to moderate cholelithiasis -Only mild calculus chronic cholecystitis -Incidental severe cholesterolosis -Multiple small to large cholesterol mucosal polyps without atypia -No evidence of malignancy, intestinal metaplasia, or glandular dysplasia Clinical Information Symptomatic cholelithiasis Gross Description Part A is received in formalin labeled with the patients name, date of , and gallbladder and contents is and intact gallbladder, 9.5 x 2.3 x 2.5 cm, with 0.3 cm cystic duct closed by a white plastic clamp. A periductal lymph node is not identified. The serosa is crowell-blue, smooth and glistening; the hepatic bed is roughened and irregular. The cystic duct margin and hepatic bed are inked black. The gallbladder is opened to exude a ocampo-green, viscous bile with 9 ocampo-yellow, granular calculi, ranging from 0.2 to 0.3 cm in greatest dimension. The mucosa is ocampo-green and velvety with 6 ocampo-yellow, polypoid-like areas, ranging from 0.2 to 0.7 cm in greatest dimension. The wall of the gallbladder ranges from 0.1 to 0.2 cm in thickness. Executive Assistant To General Counsel sections are submitted (to include the entirety of the polypoid-like areas) -------- Specimen: [id number] Received: 04/14/24 Status: GEETA Moore Num: [id number] Spec Type: Surgical Subm Dr: Saurabh Fuentes DO Tissues: A Gallbladder (GALLBLADDER AND CONTENTS) Procedures: HE/Lisa, Gross/Micro L3 -------- Patient: Robyn Rahman [id number] (Continued) -------- Specimen: [id number] Received: 04/14/24 (Continued) Gross Description (Continued) Signed (signature on file) Chin-Len Brock MD 04/15/24 1811 -------- Specimen: [id number] Received: 04/14/24 Status: GEETA Moore Num: [id number] Spec Type: Surgical Subm Dr: Saurabh Fuentes DO Tissues: A Gallbladder (GALLBLADDER AND CONTENTS) Procedures: HE/Lisa, Gross/Micro L3 -------- Patient: AleeisaackevinRobyn [id number] (Continued) -------- Specimen: [id number] Received: 04/14/24 (Continued) Gross Description (Continued) Cassettes: A1 Cystic duct margin (en face, inked black) A2 Neck of gallbladder (to include four intact, 0.2 to 0.3 cm in greatest dimension polypoid-like structures) A3 Body of gallbladder (to include bisected 0.7 cm polypoid structure (hepatic bed inked black) A4 Body and fundus of gallbladder (to include 0.5 cm polypoid structure, hepatic bed inked black) (4, , [id number] A)JG Microscopic Description Microscopic examinations are performed supporting the above interpretation CPT Codes 82538 -------- -------- Specimen: [id number] Received: 04/14/24 Status: GEETA Moore Num: [id number] Spec Type: Surgical Subm Dr: Saurabh Fuentes DO Tissues: A Gallbladder (GALLBLADDER AND CONTENTS) Procedures: Mason NICHOLS/Celo L3 -------- Patient: Robyn Rahman [id number] (Continued) -------- Signed (signature on file) Avelino Brock MD 04/15/24 5981 Normal [facility] US PELVIC WITH TRANSVAGINALo n 11-23-2023 US [...] Johnson MD on 11/23/2023 7:04 AM Normal [facility] US RETROPERITONEAL COMPLETEo n 11-23-2023 [...] Valdez MD on 11/23/2023 7:32 PM Normal [facility] XR HAND RT MIN 3 [...] Rothman MD on 11/23/2023 11:35 AM Normal [facility] URINALYSISon 11-17-2023 Bilirubin Ql (U) Negative Normal NEG [facility] Comment on above: Performed By: #### U A #### [facility] ([id number]) [address], [address] [place] [address] BLOOD/HGB Negative Normal NEG [facility] Comment on above: Performed By: #### U A #### [facility] ([id number]) [address], [address] [place] [address] Color (U) YELLOW Normal YELLOW [facility] Comment on above: Performed By: #### U A #### [facility] ([id number]) [address], [address] [place] [address] Glucose Ql (U) Negative Normal NEG [facility] Comment on above: Performed By: #### U A #### [facility] ([id number]) [address], [address] [place] [address] Ketones Ql (U) Negative Normal NEG [facility] Comment on above: Performed By: #### U A #### [facility] ([id number]) [address], [address] [place] [address] Leukocyte esterase Test strip Ql (U) Negative Normal NEG [facility] Comment on above: Performed By: #### U A #### [facility] ([id number]) [address], [address] [place] [address] Nitrite Ql (U) Negative Normal NEG [facility] Comment on above: Performed By: #### U A #### [facility] ([id number]) [address], [address] [place] [address] pH (U) 6.5 [pH] Normal 5.0-8.5 [facility] Comment on above: Performed By: #### U A #### [facility] ([id number]) [address], [address] [place] [address] Protein Ql (U) Negative Normal NEG [facility] Comment on above: Performed By: #### U A #### [facility] ([id number]) [address], [address] [place] [address] Specific gravity (U) [Rel density] 1.011 Normal 1.003-1.035 [facility] Comment on above: Performed By: #### U A #### [facility] ([id number]) [address], [address] [place] [address] TURBIDITY CLEAR Normal CLEAR [facility] Comment on above: Performed By: #### U A #### [facility] ([id number]) [address], [address] [place] [address] Urobilinogen (U) [Mass/Vol] mg/dL Normal <1.1 [facility] Comment on above: Performed By: #### U A #### [facility] ([id number]) [address] [address] [place] [address] URINE CULTUREon 11-17-2023 Bacteria identified Cx Nom (U) CULTURE RESULTS NO GROWTH AT <1000 CFU/mL Normal [facility] Comment on above: Performed By: #### 6 30-4 #### [facility] ([id number]) [address] [address] [place] [address] COMPLETE BLOOD COUNTon 05-01 -2024 Erythrocyte distribution width (RBC) [Ratio] 13.5 % Normal 11.5-15.0 [facility] Comment on above: Performed By: #### C BC #### [facility] ([id number]) [address], [address] [place] [address] Hematocrit (Bld) [Volume fraction] 43.3 % Normal 35-47 [facility] Comment on above: Performed By: #### C BC #### [facility] ([id number]) [address], [address] [place] [address] Hemoglobin (Bld) [Mass/Vol] 14.6 g/dL Normal 11.7-15.5 [facility] Comment on above: Performed By: #### C BC #### [facility] ([id number]) [address] [place] [address] MCH (RBC) [Entitic mass] 34.2 pg High 27-34 [facility] Comment on above: Performed By: #### C BC #### [facility] ([id number]) [address], [address] [place] [address] MCHC (RBC) [Mass/Vol] 33.8 g/dL Normal 32-36 [facility] Comment on above: Performed By: #### C BC #### [facility] ([id number]) [address] [place] [address] MCV (RBC) [Entitic vol] 101 fL High 80-100 [facility] Comment on above: Performed By: #### C BC #### [facility] ([id number]) [address] [place] [address] Platelet mean volume (Bld) [Entitic vol] 9.5 fL Normal 7-12 [facility] [facility] Comment on above: Performed By: #### C BC #### [facility] ([id number]) [address], [address] [place] [address] Platelets (Bld) [#/Vol] 281 10*3/uL Normal 150-450 [facility] Comment on above: Performed By: #### C BC #### [facility] ([id number]) [address], [address] [place] [address] RBC COUNT 4.28 X10E12/L Normal 3.80-5.20 [facility] Comment on above: Performed By: #### C BC #### [facility] ([id number]) [address], [address] [place] [address] WBC (Bld) [#/Vol] 9.5 10*3/uL Normal 4.0-11.0 [facility] Comment on above: Performed By: #### C BC #### [facility] ([id number]) [address], [address] [place] [address] MR THORACIC SPINE WO CONTon 10-01-2023 MR [...] Urena MD on 10/01/2023 2:52 PM Normal [facility] XR CHEST 2 VWSon 10-01-2023 [...] Rothman MD on 10/01/2023 10:29 AM Normal [facility] BASIC METABOLIC PANLon 09-23 Anion gap [Moles/Vol] 6 mmol/L Normal 5-15 [facility] Comment on above: Performed By: #### B MP #### [facility] ([id number]) [address], [address] [place] [address] Calcium [Mass/Vol] 9.3 mg/dL Normal 8.5-10.5 [facility] Comment on above: Performed By: #### B MP #### [facility] ([id number]) [address], [address] [place] [address] Chloride [Moles/Vol] 102 mmol/L Normal 98-109 [facility] Comment on above: Performed By: #### B MP #### [facility] ([id number]) [address], [address] [place] [address] CO2 [Moles/Vol] 29 mmol/L Normal 22-32 [facility] Comment on above: Performed By: #### B MP #### [facility] ([id number]) [address], [address] [place] [address] Creatinine [Mass/Vol] 0.71 mg/dL Normal 0.40-1.00 [facility] Comment on above: Result Comment: METH OD TRACEABLE TO IDMS STANDARD Performed By: #### B MP #### [facility] ([id number]) [address], [address] [place] [address] eGFR (CKD-EPI) NON-RACE DEPENDENT >90 Normal >59 [facility] Comment on above: Result Comment: Reported eGFR is based on the CKD-EPI 2020 equation that does not use a race coefficient. Performed By: #### B MP #### [facility] ([id number]) [address], [address] [place] [address] Glucose [Mass/Vol] 88 mg/dL Normal 65-99 [facility] Comment on above: Performed By: #### B MP #### [facility] ([id number]) [address], [address] [place] [address] Potassium [Moles/Vol] 3.8 mmol/L Normal 3.5-5.0 [facility] Comment on above: Performed By: #### B MP #### [facility] ([id number]) [address], [address] [place] [address] Sodium [Moles/Vol] 137 mmol/L Normal 134-146 [facility] Comment on above: Performed By: #### B MP #### [facility] ([id number]) [address] [address] [place] [address] Urea nitrogen [Mass/Vol] 8 mg/dL Normal 5-23 [facility] Comment on above: Performed By: #### B MP #### [facility] ([id number]) [address] [address] [place] [address] CBC AUTO DIFFon 08-08-2022 BASO # 0.0 103/ul Normal 0.0-0.1 [facility] Comment on above: Performed By: #### C BC #### [facility] [address] [address] [address] Seferino Brock Basophils/100 WBC (Bld) 0.5 % Normal 0.2-2.0 [facility] Comment on above: Performed By: #### C BC #### [facility] [address] [place] [address] Dr. Seferino Brock EO # 0.1 103/ul Normal 0.0-0.7 [facility] Comment on above: Performed By: #### C BC #### [facility] [address] [place] [address] Dr. Seferino Brock Eosinophils/100 WBC (Bld) 0.9 % Normal 0.9-7.0 [facility] Comment on above: Performed By: #### C BC #### [facility] [address] [place] [address] Dr. Seferino Brock Erythrocyte distribution width (RBC) [Ratio] 12.7 % Normal 11.0-15.0 [facility] Comment on above: Performed By: #### C BC #### [facility] [address] [place] [address] Dr. Seferino Brock Hematocrit (Bld) [Volume fraction] 43.0 % Normal 36.0-48.0 [facility] Comment on above: Performed By: #### C BC #### [facility] [address] [place] [address] Dr. Seferino Brock Hemoglobin (Bld) [Mass/Vol] 14.9 g/dL Normal 12.0-16.0 [facility] Comment on above: Performed By: #### C BC #### [facility] [address] [place] [address] Dr. Seferino Brock IG # 0.01 10e3/ul Normal 0.00-0.03 [facility] Comment on above: Performed By: #### C BC #### [facility] [address] [place] [address] Dr. Seferino Brock IG % 0.1 % Normal 0.0-0.5 [facility] Comment on above: Performed By: #### C BC #### [facility] [address] [place] [address] Dr. Seferino Brock LYMPH # 1.7 103/ul Normal 1.2-3.8 [facility] Comment on above: Performed By: #### C BC #### [facility] [address] [place] [address] Dr. Seferino Brock Lymphocytes/100 WBC (Bld) 22.9 % Normal 20.5-60.0 [facility] Comment on above: Performed By: #### C BC #### [facility] [address] [place] [address] Dr. Seferino Brock MANUAL DIFF REQ NO Normal [facility] Comment on above: Performed By: #### C BC #### [facility] [address] [place] [address] Dr. Seferino Brock MCH (RBC) [Entitic mass] 33.5 pg Normal 26.7-34.0 [facility] Comment on above: Performed By: #### C BC #### [facility] [address] [place] [address] Dr. Seferino Brock MCHC (RBC) [Mass/Vol] 34.7 g/dL Normal 29.9-35.2 [facility] Comment on above: Performed By: #### C BC #### [facility] [address] [place] [address] Dr. Seferino Brock MCV (RBC) [Entitic vol] 96.6 fL Normal 81.0-99.0 [facility] Comment on above: Performed By: #### C BC #### [facility] [address] [place] [address] Dr. Seferino Brock MONO # 0.4 103/ul Normal 0.3-0.8 [facility] Comment on above: Performed By: #### C BC #### [facility] [address] [place] [address] Dr. Seferino Brock Monocytes/100 WBC (Bld) 5.6 % Normal 1.7-12.0 [facility] Comment on above: Performed By: #### C BC #### [facility] [address] [place] [address] Dr. Seferino Brock NEUT # 5.2 103/ul Normal 1.4-6.5 [facility] Comment on above: Performed By: #### C BC #### [facility] [address] [place] [address] Dr. Seferino Brock Neutrophils/100 WBC (Bld) 70.0 % Normal 43.0-75.0 [facility] Comment on above: Performed By: #### C BC #### [facility] [address] [place] [address] Dr. Seferino Brock Platelet mean volume (Bld) [Entitic vol] 10.0 fL Normal 9.5-13.5 [facility] Comment on above: Performed By: #### C BC #### [facility] [address] [place] [address] Dr. Seferino Brock PLT 286 103/ul Normal 150-450 [facility] Comment on above: Performed By: #### C BC #### [facility] [address] [place] [address] Dr. Seferino Brock RBC 4.45 106/ul Normal 4.20-5.40 [facility] Comment on above: Performed By: #### C BC #### [facility] [address] [place] [address] Dr. Seferino Brock WBC 7.5 103/ul Normal 4.0-11.0 [facility] Comment on above: Performed By: #### C BC #### [facility] [address] [place] [address] HEAD WO CONon [...] DAYO UNLU Date: 2022-08-08 14:02 Normal [facility] PROF CHEM 8 (BAS METB)on Anion gap [Moles/Vol] 13.3 mmol/L Normal [facility] Comment on above: Performed By: #### B MP #### [facility] [address] [address] [address] Seferino Brock Calcium [Mass/Vol] 9.6 mg/dL Normal 8.5-10.1 [facility] Comment on above: Performed By: #### B MP #### [facility] [address] [place] [address] Dr. Seferino Brock Chloride [Moles/Vol] 102 mmol/L Normal 98-107 [facility] Comment on above: Performed By: #### B MP #### [facility] [address] [address] [address] Seferino Brock CO2 [Moles/Vol] 26.1 mmol/L Normal 21.0-32.[address] [facility] Comment on above: Performed By: #### B MP #### [facility] [address] [address] [address] Seferino Brock Creatinine [Mass/Vol] 0.66 mg/dL Normal 0.55-1.02 [facility] Comment on above: Performed By: #### B MP #### [facility] [address] [address] [address] Seferino Brock EGFR-AF JORDANIAN >60 Normal >=[address] [facility] Comment on above: Performed By: #### B MP #### [facility] [address] [place] [address] Dr. Seferino Brock EGFR-NON AF JORDANIAN >60 Normal >=60 [facility] Comment on above: Performed By: #### B MP #### [facility] [address] [place] [address] Dr. Seferino Brock Glucose [Mass/Vol] 92 mg/dL Normal 74-106 [facility] Comment on above: Performed By: #### B MP #### [facility] [address] [address] [address] Seferino Brock Potassium [Moles/Vol] 4.4 mmol/L Normal 3.5-5.1 [facility] Comment on above: Performed By: #### B MP #### [facility] [address] [address] [address] Seferino Brock Sodium [Moles/Vol] 137 mmol/L Normal 136-145 [facility] Comment on above: Performed By: #### B MP #### [facility] [address] [address] [address] Seferino Brock Urea nitrogen [Mass/Vol] 6.0 mg/dL Critically low 7.0-18.0 [facility] Comment on above: Performed By: #### B MP #### [facility] [address] [address] [address] Seferino Brock Urea nitrogen/Creatinine [Mass ratio] 9.1 mg/mg Normal [facility] Comment on above: Performed By: #### B MP #### [facility] [address] [address] [address] Seferino Brock Vital Signs Date Time Vital Sign Value Performing Clinician Facility 05-10-2024 10:05-0500 Body height 158.8 cm Amber Gonsalez MD Work Phone: [facility] 05-10-2024 10:05-0500 Body mass index (BMI) [Ratio] 25.56 kg/m2 Amber Gonsalez MD Work Phone: [facility] 05-10-2024 10:05-0500 Body weight 64.41 kg Amber Gonsalez MD Work Phone: [facility] 05-10-2024 10:05-0500 Diastolic blood pressure 80 mm[Hg] Amber Gonsalez MD Work Phone: [facility] 05-10-2024 10:05-0500 Systolic blood pressure 138 mm[Hg] Amber Gonsalez MD Work Phone: [facility] [employer] [facility] 05-03-2024 09:05-0500 Body height 157.5 cm Saurabh Fuentes DO Work Phone: [facility] [employer] 05-03-2024 09:05-0500 Body mass index (BMI) [Ratio] 24.51 kg/m2 Saurabh Fuentes DO Work Phone: [facility] 05-03-2024 09:05-0500 Body weight 60.78 kg Saurabh Fuentes DO Work Phone: [facility] 05-03-2024 09:05-0500 Heart rate 60 /min Saurabh Fuentes DO Work Phone: [facility] 05-03-2024 09:05-0500 Respiratory rate 12 /min Saurabh Fuentes DO Work Phone: [facility] 05-03-2024 09:05-0500 SaO2% (BldA) [Mass fraction] 96 % Saurabh Fuentes DO Work Phone: [facility] 03-30-2024 13:23-0400 Body height 157.5 cm Rachel GONSALES Work Phone: [facility] 03-30-2024 13:23-0400 Body mass index (BMI) [Ratio] 26.34 kg/m2 Rachel Mckeon PA Work Phone: [facility] 03-30-2024 13:23-0400 Body weight 65.32 kg Rachel Mckeon PA Work Phone: [facility] 03-30-2024 13:23-0400 Diastolic blood pressure 75 mm[Hg] Rachel Mckeon PA Work Phone: [facility] 03-30-2024 13:23-0400 Heart rate 80 /min Rachel Mckeon PA Work Phone: [facility] 03-30-2024 13:23-0400 Respiratory rate 18 /min Rachel Mckeon PA Work Phone: [facility] [employer] [facility] 03-30-2024 13:23-0400 SaO2% (BldA) [Mass fraction] 95 % Rachel Mckeon PA Work Phone: [facility] 03-30-2024 13:23-0400 Systolic blood pressure 99 mm[Hg] Rachel Mckeon PA Work Phone: [facility] 03-29-2024 10:14-0400 Body height 160 cm Saurabh Fuentes DO Work Phone: [facility] 03-29-2024 10:14-0400 Body mass index (BMI) [Ratio] 23.74 kg/m2 Saurabh Fuentes DO Work Phone: [facility] 03-29-2024 10:14-0400 Body weight 60.78 kg Saurabh Fuentes DO Work Phone: [facility] 03-29-2024 10:14-0400 Diastolic blood pressure 78 mm[Hg] Saurabh Fuentes DO Work Phone: [facility] 03-29-2024 10:14-0400 Systolic blood pressure 128 mm[Hg] Saurabh Fuentes DO Work Phone: [facility] 08-21-2023 10:13-0400 Body height 157.5 cm Rachel Mckeon PA Work Phone: [facility] [employer] [facility] 08-21-2023 10:13-0400 Body mass index (BMI) [Ratio] 28.35 kg/m2 Rachel Mckeon PA Work Phone: [facility] [employer] [facility] 08-21-2023 10:13-0400 Body weight 70.31 kg Rachel Mckeon PA Work Phone: [facility] 08-21-2023 10:13-0400 Diastolic blood pressure 86 mm[Hg] Rachel Mckeon PA Work Phone: [facility] 08-21-2023 10:13-0400 Heart rate 82 /min Rachel Mckeon PA Work Phone: [employer] 08-21-2023 10:13-0400 Respiratory rate 18 /min [facility] 08-21-2023 10:13-0400 Systolic blood pressure 120 mm[Hg] [facility] 07-17-2023 09:30-0500 Diastolic blood pressure 93 mm[Hg] [facility] 07-17-2023 09:30-0500 Systolic blood pressure 141 mm[Hg] [facility] 07-17-2023 09:27-0500 Heart rate 92 /min [facility] 07-17-2023 09:27-0500 Respiratory rate 16 /min Rachel Mc[facility] PA [facility] 07-17-2023 09:27-0500 SaO2% (BldA) [Mass fraction] 97 % Rachel GONSALES Work Phone: [facility] Encounters Encounter Date Encounter Type Care Provider Facility Start: 05-10-2024 End: 05-10-2024 Office outpatient visit 15 minutes Amber Gonsalez MD Work Phone: [facility] Comment on above: Cystocele with uteri ne prolapse (Primary Dx); Urinary, incontinence, stress female Start: 05-10-2024 End: 05-10-2024 ambulatory AMBER GONSALEZ [facility] Start: 05-03-2024 End: 05-03-2024 Bamboo flowsheet Saurabh Retora Black DO Work Phone: [facility] Start: 05-03-2024 End: 05-03-2024 Bamboo flowsheet Saurabh Mary DO Work Phone: [facility] Start: 05-03-2024 End: 05-03-2024 Postop follow up visit related to original px Saurabh Fuentes DO Work Phone: [facility] Comment on above: Status post cholecys tectomy (Primary Dx) Start: 05-03-2024 End: 05-03-2024 ambulatory SAURABH FUENTES Not Available Start: 04-19-2024 End: 04-19-2024 Telephone encounter Aubrey Anders DPM Work Phone: [facility] Comment on above: Advice Only (Medical Records Request for Social Security) Start: 04-13-2024 End: 04-13-2024 ambulatory Saurabh Fuentes Facility:[facility] Start: 04-13-2024 End: 04-13-2024 Departed Referred Saurabh Fuentes DO Work Phone: [facility] Start: 04-05-2024 End: 04-05-2024 Bamboo flowsheet Aubrey Anders DPM Work Phone: [facility] Start: 04-05-2024 End: 04-05-2024 Bamboo flowsheet Aubrey Anders DPM Work Phone: [facility] Start: 04-05-2024 End: 04-05-2024 Office outpatient visit 15 minutes Aubrey Anders DPM Work Phone: [facility] Comment on above: S/P foot surgery (Pr imary Dx); Right foot pain Start: 04-05-2024 End: 04-05-2024 ambulatory AUBREY ANDERS Not Available Start: 03-30-2024 End: 03-30-2024 Office outpatient visit 15 minutes Rachel GONSALES Work Phone: [facility] Comment on above: Lumbar spondylosis ( Primary Dx) Start: 03-30-2024 End: 03-30-2024 ambulatory RACHEL MCKEON [facility] Start: 03-29-2024 End: 03-29-2024 Bamboo flowsheet Saurabh Fuentes DO Work Phone: [facility] Start: 03-29-2024 End: 03-29-2024 Bamboo flowsheet Saurabh Fuentes DO Work Phone: [facility] Start: 03-29-2024 End: 03-29-2024 Office outpatient new 45 minutes Saurabh Fuentes DO Work Phone: [facility] Comment on above: Recurrent biliary co lic Start: 03-29-2024 End: 03-29-2024 ambulatory SAURABH FUENTES Not Available Start: 03-22-2024 Non-patient / Non-visit Saurabh Glover juliajerry DO Work Phone: [facility] Work Phone: Start: 03-12-2024 End: 03-12-2024 ambulatory [facility] Start: 02-19-2024 End: 02-19-2024 ambulatory [facility] Start: 01-31-2024 End: 01-31-2024 ambulatory OFELIA MARTINEZ [facility] Start: 01-30-2024 End: 01-30-2024 ambulatory [facility] Start: 01-08-2024 End: 01-08-2024 ambulatory [facility] Start: 12-31-2023 End: 12-31-2023 ambulatory AUBREY ANEDRS Not Available Start: 12-23-2023 End: 02-01-2024 ambulatory [facility] Start: 12-19-2023 End: 12-19-2023 ambulatory [facility] Start: 12-02-2023 End: 12-02-2023 [facility] Start: 11-21-2023 End: 11-21-2023 ambulatory [facility] Start: 11-19-2023 End: 11-19-2023 ambulatory AUBREY S RUSHER Not Available Start: 11-17-2023 End: 11-17-2023 ambulatory [facility] Start: 11-17-2023 End: 11-17-2023 ambulatory [facility] Start: 11-13-2023 End: 11-13-2023 ambulatory RACHEL MCKEON [facility] Start: 11-05-2023 End: 11-05-2023 ambulatory AUBREY S KADEHER Not Available Start: 10-22-2023 End: 10-22-2023 ambulatory AUBREY S RUSHER Not Available Start: 10-10-2023 End: 10-10-2023 Evaluation and management of inpatient RACHELE DENNEY [facility] Start: 10-09-2023 End: 10-10-2023 Evaluation and management of inpatient AUBREY S [facility] Start: 10-09-2023 End: 10-09-2023 Evaluation and management of inpatient AUBREY Black [facility] Start: 10-01-2023 Encounter for preprocedural laboratory examination [facility] Start: 10-01-2023 End: 10-01-2023 ambulatory PASOTRA LEDESMA [facility] Start: 09-24-2023 End: 09-24-2023 ambulatory KAMINI Burt JADIEL [facility] Start: 09-24-2023 Encounter for other preprocedural examination [facility] Start: 09-24-2023 End: 09-24-2023 ambulatory AUBREY S KADEHER Not Available Start: 09-23-2023 End: 09-23-2023 ambulatory RACHEL MCKEON [facility] Start: 09-09-2023 End: 09-09-2023 ambulatory AUBREY S RUSHER Not Available Start: 08-21-2023 End: 08-21-2023 Office outpatient visit 15 minutes Rachel GONSALES Work Phone: [facility] Comment on above: Lumbar spondylosis ( Primary Dx) Start: 08-21-2023 End: 08-21-2023 ambulatory RACHEL MCKEON [facility] Start: 08-12-2023 End: 08-12-2023 ambulatory AUBREY ANDERS Not Available Start: 08-09-2023 End: 08-09-2023 ambulatory ALYCIA KAMARA [facility] Start: 08-08-2023 End: 08-08-2023 ambulatory [facility] Start: 08-08-2023 End: 08-08-2023 ambulatory [facility] Start: 07-17-2023 End: 07-17-2023 Office outpatient visit 15 minutes Rachel GONSALES Work Phone: [facility] Comment on above: 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 Start: 06-20-2023 End: 06-21-2023 ambulatory JOE LAWSON [facility] Start: 06-06-2023 End: 06-06-2023 ambulatory [facility] Start: 06-06-2023 End: 06-06-2023 ambulatory [facility] Start: 05-24-2023 End: 05-24-2023 ambulatory ADDISON YOUBassem [facility] Start: 05-23-2023 End: 05-23-2023 ambulatory [facility] Start: 08-08-2022 End: 08-08-[address] HOLLIE PARKER . Facility: Procedures Date Procedure Procedure Detail Performing Clinician Start: 09-26-2022 H/O: surgery S/P nasal septoplasty Rachel Galindo Work Phone: Start: 06-27-2021 Adult depression screening assessment Rachel GONSALES Work Phone: Start: 03-12-2019 Colonoscopy Rachel GONSALES Work Phone: History of cholecystectomy Status post cholecystectomy Saurabh Mary DO Work Phone: Plan of Treatment Date Care Activity Detail Author Start: 03-12-2029 Screening for malign ant neoplasm of colon Colonoscopy [facility] Start: 05-10-2025 Adult BMI Screening Adult BMI Screen ing [facility] Start: 05-10-2025 Tobacco Screening Tobacco Screening [facility] Start: 03-30-2025 Adult BMI Screening Adult BMI Screen ing [facility] Start: 03-30-2025 Tobacco Screening Tobacco Screening [facility] Start: 08-20-2024 Adult BMI Screening Adult BMI Screen ing [facility] Start: 08-20-2024 Tobacco Screening Tobacco Screening [facility] Start: 07-17-2024 Tobacco Screening Tobacco Screening [facility] Start: 06-08-2024 End: 06-08-2024 Patient encounter procedure 06/08/2024 10:00 AM EST Office Visit [facility] [address] [place] [id number] Amber Gonsalez MD [address] [place] [address] [facility]colo gy Start: 05-20-2024 End: 05-20-2024 Patient encounter procedure 05/20/2024 1:30 PM EST Office Visit [facility] [address] [place] [id number] Rachel Mckeon PA [address] [place] [address] [facility] Start: 05-03-2024 End: 05-03-2024 Patient encounter procedure [facility] Comment on above: Arrived Start: 04-05-2024 End: 04-05-2024 Patient encounter procedure [facility] Comment on above: Arrived Start: 03-29-2024 End: 03-29-2024 Patient encounter procedure 03/29/2024 10:00 AM EDT Office Visit [facility] [address] [place] [address] Saurabh Fuentes DO [address] [place] [address] Calculus of gallbladder with acute on chronic cholecystitis without obstruction [facility] Comment on above: Calculus of gallblad vida with acute on chronic cholecystitis without obstruction Start: 02-19-2024 Adult BMI Screening Adult BMI Screen ing [facility] Start: 02-01-2024 Influenza vaccination Influenza Vacc ine [facility] Start: 09-23-2023 End: 09-23-2023 Patient encounter procedure 09/23/2023 12:30 PM EDT Office Visit [facility] [address] [place] [phone] Rachel Mckeon PA [address], [address] [place] [id number] [facility] Start: 08-21-2023 End: 08-21-2023 Patient encounter procedure 08/21/2023 9:45 AM EDT Office Visit [facility] [address] [place] [id number] Rachel Mckeon PA [address], [address] [place] [id number] [facility] Start: 08-08-2023 End: 08-08-2023 Admission to same day surgery center 08/08/2023 9:07 AM EST - 08/08/2023 9:12 AM EST Surgery [facility] [address] [place] [id number] Shailesh Vasques MD [address] [place], [place] [id number] INJECTION BURSA SMALL JOINT Left 1st CMC [ (CPT )] [facility] Comment on above: INJECTION BURSA SMAL L JOINT Left 1st CMC [ (CPT )] Start: 08-08-2023 End: 08-08-2023 Arthrocentesis aspir&/inj small jt/bursa w/o us INJECTION BURSA SMALL JOINT 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 08/08/2023 9:07 AM EST [facility] Start: 08-08-2023 Subsequent hospital visit by physician 08/08/2023 9:07 AM EST Hospital Encounter [facility] [address] [place] [phone] Shailesh Vasques MD [address] [place] [address] [facility] Start: 06-27-2022 Depression Screening Depression [facility] Start: 2020 Administration of varicella zoster vaccine Zoster (Shingles) Vaccine (1 of 2) [facility] Start: 12-26-1991 Screening for malign ant neoplasm of cervix Pap Smear [facility] Start: 1989 DTaP,Tdap and Td Vaccines (1 - Tdap) DTaP,Tdap and Td Vaccines (1 - Tdap) [facility] Start: 1988 Adult BMI Follow Up Plan Adult BMI F ollow Up Plan [facility] Start: 1970 Tobacco Counseling Tobacco Counselin g [facility] Immunizations Immunization Date Immunization Notes Care Provider Fa [facility] 03-19-2023 Influenza, injectabl e, Madin Plato Canine Kidney, preservative free, quadrivalent Saurabh Fuentes DO Work Phone: [facility] 03-19-2023 influenza virus vaccine, unspecified formulation Rachel GONSALES Work Phone: [facility] 04-15-2022 Influenza, injectabl e, Madin Plato Canine Kidney, preservative free, quadrivalent Saurabh Mary DO Work Phone: [facility] 03-27-2020 influenza, injectabl e, quadrivalent, preservative free Saurabh Mary DO Work Phone: [facility] 04-01-2018 Influenza, injectabl e, Madin Plato Canine Kidney, preservative free, quadrivalent Saurabh Mary DO Work Phone: [facility] Healthcare Payers Date Payer Category Payer Self-pay 2022 Medicaid [id number] 2022 Medicaid [id number] 1970 Unknown [id number] 2.16.84 0.1.709053.3.579.2.593 1970 Unknown [id number] 2.16.8 40.1.265630.3.579.2.1285 1970 Unknown [id number] 2.16.8 40.1.462959.3.579.2.1285 1970 Unknown [id number] 2.16.8 40.1.503595.3.579.2.1285 1970 Unknown [id number] 2.16.8 40.1.359449.3.579.2.1285 1970 Unknown [id number] 2.16.8 40.1.074949.3.579.2.1285 1970 Unknown [id number] 2.16.8 40.1.072047.3.579.2.1285 1970 Unknown [id number] 2.16.8 40.1.166398.3.579.2.1285 1970 Unknown [id number] 2.16.8 40.1.449213.3.579.2.1285 1970 Unknown [id number] 2.16.8 40.1.065145.3.579.2.1285 1970 Unknown [id number] 2.16.8 40.1.672778.3.579.2.1285 1970 Unknown [id number] 2.16.8 40.1.214006.3.579.2.1285 1970 Unknown [id number] 2.16.8 40.1.190491.3.579.2.1285 1970 Unknown [id number] 2.16.8 40.1.131223.3.579.2.1285 1970 Unknown [id number] 2.16.8 40.1.081939.3.579.2.1285 1970 Unknown [id number] 2.16.8 40.1.041494.3.579.2.1285 1970 Unknown [id number] 2.16.8 40.1.616871.3.579.2.1285 1970 Unknown [id number] 2.16.8 40.1.571764.3.579.2.1285 1970 Unknown [id number] 2.16.8 40.1.089702.3.579.2.1285 1970 Unknown [id number] 2.16.8 40.1.681128.3.579.2.1285 1970 Unknown [id number] 2.16.8 40.1.500991.3.579.2.1285 1970 Unknown [id number] 2.16.8 40.1.559332.3.579.2.1285 1970 Unknown [id number] 2.16.8 40.1.767026.3.579.2.1285 1970 Unknown [id number] 2.16.8 40.1.535261.3.579.2.1285 1970 Unknown [id number] 2.16.8 40.1.245021.3.579.2.1285 1970 Unknown [id number] 2.16.8 40.1.395920.3.579.2.128 1970 Unknown [id number] 2.16.8 40.1.151411.3.579.2.1285 1970 Unknown [id number] 2.16.8 40.1.830656.3.579.2.1285 1970 Unknown [id number] 2.16.8 40.1.233981.3.579.2.1285 1970 Unknown [id number] 2.16.8 40.1.939972.3.579.2.1285 1970 Unknown [id number] 2.16.8 40.1.132135.3.579.2.1285 1970 Unknown [id number] 2.16.8 40.1.355653.3.579.2.1285 1970 Unknown [id number] 2.16.8 40.1.160288.3.579.2.1285 1970 Unknown [id number] 2.16.8 40.1.327227.3.579.2.1285 1970 Unknown [id number] 2.16.84 0.1.213037.3.579.2.1285 1970 Unknown [id number] 2.16.84 0.1.177601.3.579.2.1285 1970 Unknown [id number] 2.16.84 0.1.855679.3.579.2.1285 1970 Unknown [id number] 2.16.84 0.1.774642.3.579.2.1285 1970 Unknown [id number] 2.16.84 0.1.505655.3.579.2.1285 1970 Unknown [id number] 2.16.84 0.1.941193.3.579.2.1285 1970 Unknown [id number] 2.16.84 0.1.474650.3.579.2.1285 1970 Unknown [id number] 2.16.84 0.1.760414.3.579.2.1286 1970 Unknown [id number] 2.16.84 0.1.665447.3.579.2.1285 1970 Unknown [id number] 2.16.84 0.1.051136.3.579.2.128 1970 Unknown [id number] 2.16.84 0.1.660999.3.579.2.1258 1970 Unknown [id number] 2.16.84 0.1.843077.3.579.2.1258 1970 Unknown [id number] 2.16.84 0.1.775848.3.579.2.1258 1970 Unknown [id number] 2.16.84 0.1.077923.3.579.2.1258 1970 Unknown [id number] 2.16.84 0.1.726807.3.579.2.1258 1970 Unknown [id number] 2.16.84 0.1.877788.3.579.2.1258 1970 Unknown [id number] 2.16.84 0.1.614835.3.579.2.1258 1970 Unknown [id number] 2.16.84 0.1.675683.3.579.2.1258 1970 Unknown [id number] 2.16.84 0.1.024806.3.579.2.1258 1970 Unknown [id number] 2.16.84 0.1.938977.3.579.2.1258 1970 Unknown [id number] 2.16.84 0.1.654088.3.579.2.1258 1970 Unknown [id number] 2.16.84 0.1.641414.3.579.2.1258 1970 Unknown [id number] 2.16.84 0.1.817192.3.579.2.1258 1970 Unknown [id number] 2.16.84 0.1.831961.3.579.2.1259 1970 Unknown [id number] 2.16.8 40.1.745034.3.579.2.1286 1970 Unknown [id number] 2.16.8 40.1.505261.3.579.2.1286 1970 Unknown [id number] 2.16.8 40.1.162776.3.579.2.1286 Unknown [id number] 2.16.8 40.1.640500.3.579.2.531 Social History Date Type Detail Facility Start: 08-29-2022 End: 05-10-2024 Tobacco smoking status MSIS Occasional tobacco smoker [facility] Start: 06-02-1990 End: 06-02-2018 History of tobacco use Cigarette Smoker [facility] Start: 06-13-2020 End: 08-29-2022 Cigarettes smoked current (pack per day) - Reported 0.3 [facility] Start: 08-29-2022 End: 05-10-2024 Tobacco use and exposure Smokeless tobacco non-user [facility] Start: 07-17-2023 End: 05-10-2024 Alcohol intake Current non-drinker of alcohol (finding) [facility] Start: 06-13-2020 End: 07-17-2023 Tobacco use panel [facility] Adolescent depressio n screening assessment 0 [facility] Start: 1970 Sex Assigned At Not on file P [facility] Start: 12-31-2023 End: 05-03-2024 Alcoholic beverage intake Lifetime non-drinker (finding) [facility] Start: 01-05-2015 End: 04-15-2024 Sex Female (finding) [facility] Tobacco smoking stat [facility] Unknown if ever smoked [facility] Work Phone: Start: 1970 Sex Assigned At Female F [facility] Medical Equipment Procedure Code Equipment Code Equipment Origin al Text Equipment Identifier Dates Graft Sft Tis 2.5x2.5cm Biodesign Simeon Repr - Sna - [id number] Start: 09-19-2022 Prostep Mis Bunionette Implant Set Size Small [id number] Start: 10-09-2023 Clinical Notes 07-17-2023 to 05-10-2024 Amber Gonsalez MD - 05/10/2024 10:00 AM Ramirez Fuentes DO - 05/03/2024 9:00 AM ESTTelephone [place] - Ariel Garcia - 04/19/2024 1:24 PM Og Anders DPM - 04/05/2024 10:00 AM EST Note Date & Type Note Facility 05-10-2024 History of Presen t illness Narrative Robyn Rahman is a 53 y.o.female who presents for pessary fitting. Pt has a +1/+2 Cystorectocele. Fitted the pt with a #4 ring with support which fit the pt well. Pt denies any problems with constipation or diarrhea. #4RING PLACED WO DIFFICULTY PT VOIDED PRIOIR TO LEAVING OFFICE WO DIFFICULTY USING ESTRACE CREAM ALREADY GIVEN REFERRAL TO PELVIC FLOOR PT HAS # TO CALL OB History 6 Para 5 Term 5 AB Living SAB IAB Ectopic Multiple Live Births FAMILY HX Family History Problem Relation Age of Onset Diabetes Mother Heart disease Mother Lung disease Mother Osteoporosis Mother No Known Problems Father Cancer Paternal Grandmother Breast cancer Cousin Breast cancer Maternal Aunt Denny Breast Cancer Neg Hx Review of Systems A comprehensive review of systems was negative. Physical Exam LMP (LMP Unknown) Comment: no period over a year General: alert and oriented x 3 Vulva: External genitalia within normal limits. No HPV, no lesions, no obvious dysplastic changes Vagina: Well supported, no discharge, no lesions Cervix: Clear, without discharge, gross lesions, no motion tenderness Uterus: normal size, without irregular mass, no prolapse, nontender, freely mobile Adnexa: no mass, fullness, tenderness Pessary removed, cleaned, inspected and replaced. Patient tolerated procedure. Assessment SX MILD-MOD CYSTORECTOCELE URINARY INCONTINENCE Plan #4RING PESSARY W SUPPORT RTO 4-6WKS ESTACE CREAM PELVIC FLOOR PT Advised the pt to avoid any strenuous activity or bearing down. Noted that if she feels the pessary slip down then she can adjust it with her fingers. Discussed follow-up in 4-6 weeks to reevaluate the pessary. Advised the pt to continue using the estrogen cream 2x weekly. Advised the pt to follow-up with pelvic floor physical therapy and noted that her pessary should help. Discussed with the pt that she could have surgery to fix her uterine prolapse if she does not notice any improvement and wants to take more aggressive measures. Danica Keene 05/10/24 1035 AMBER GONSALEZ MD documented in this encounter [facility] 05-03-2024 History of Presen t illness Narrative General Surgery H&P Robyn Rahman 1970 Robyn Rahman is a 53 y.o. female presents post op lap cholecystectomy on 04/13. She states that she is doing well, denies any pain. She states that her incisions are healing well. Path benign. Denies fevers, chills, or sweats. Denies nausea or vomiting. Tolerating diet and having regular bowel function. Minimal/No pain currently. No complaints at this time. SUBJECTIVE: MEDICATIONS: ALLERGIES Current Outpatient Medications Medication [...] History: Diagnosis Date Anxiety 2020 Arthritis Asthma ([facility]) 2021 Depression ([facility]) Hypertension ([facility]) Menopausal symptoms Personal history of other medical treatment nerve blocks from pain management for lumbar and hip issues Social History Tobacco Use Smoking status: Some Days Current packs/day: 0.25 Average packs/day: 0.3 packs/day for 33.9 years (8.5 ttl pk-yrs) Types: Cigarettes Start date: 06/02/1990 Smokeless tobacco: Never Vaping Use Vaping status: Never Used Substance Use Topics Alcohol use: Never Drug use: Never Past Surgical History: Procedure Laterality Date CARPAL TUNNEL RELEASE Left 12/08/2017 CHOLECYSTECTOMY 04/13/2024 CT ANGIOGRAM HEART CORONARY 06/12/2021 CT ANGIOGRAM [...] Laterality Date CARPAL TUNNEL RELEASE Left 12/08/2017 CHOLECYSTECTOMY 04/13/2024 CT ANGIOGRAM HEART CORONARY 06/12/2021 CT ANGIOGRAM TAVR 06/12/2021 OSTEOTOMY Right 10/09/2023 right foot TUBAL LIGATION US GUIDED BIOPSY SENTINEL NODE CORE SUPERFICIAL NOT FNA 12/28/2020 US GUIDED BIOPSY SENTINEL NODE CORE SUPERFICIAL NOT FNA 12/28/2020 Tobacco Use: High Risk (05/03/2024) Patient History Smoking Tobacco Use: Some Days Smokeless Tobacco Use: Never Passive Exposure: Not on file Alcohol Use: Not on file Depression: Not at risk (06/27/2021) Received from [facility], [facility] PHQ-2 Total Score: 0 Physical Activity: Not on file REVIEW OF SYMPTOMS: Review of Systems Musculoskeletal: Positive for back pain. All other systems reviewed and are negative. 10 systems were reviewed. Positives noted above. Remainder are negative per CMS guidelines OBJECTIVE: Visit Vitals Pulse 60 Resp 12 Ht 5' 2 Wt 134 lb SpO2 96% BMI 24.51 kg/m Smoking Status Some Days BSA 1.63 m Physical Exam Vitals reviewed. General: AAOx3, NAD Head: atraumatic normocephalic Neck: trachea midline. No masses or lymphadenopathy Heart: Regular rate and rhythm Lungs: equal chest rise and fall, non labored breathing Abdomen: soft, nontender, and non distended, incisions clean/dry/intact Ext: motor 5/5 all extremities with no gross deformities Psych: alert and oriented, behavior appropriate ASSESSMENT AND PLAN: Assessment/Plan Diagnoses and all orders for this visit: Status post cholecystectomy Patient doing well. No complaints. Instructed to continue daily washing of incisions and no swimming/bathing until 14 days past procedure or until incisions fully healed. No lifting more then 12-15lbs until 21 days after procedure. Ok to return to work with lifting restrictions mentioned above. Follow up as needed. Thank you, Teofilo Fuentes DO documented in this encounter [facility] 04-19-2024 Telephone encounter Note Patient called needing to fruit or nut picker her medical records with Dr. Aubrey Anders as [employer] is requesting it before May 03, 2024. [facility] 04-19-2024 Miscellaneous Notes Patient called needing to fruit or nut picker her medical records with Dr. Aubrey Anders as [employer] is requesting it before May 03, 2024. documented in this encounter [facility] 04-05-2024 History of Presen t illness Narrative Images from the original note [...] History: Diagnosis Date Anxiety 2019 Arthritis Asthma (CMS/HCC) 2021 Depression (CMS/HCC) Hypertension ([facility]) Menopausal symptoms Personal history of other medical [...] Comments: Presents to clinic ambulating unassisted in [facility]. HENT: Head: Normocephalic and atraumatic. Cardiovascular: Pulses: [...] Aubrey Anders DPM documented in this encounter [facility] 03-30-2024 History of Presen t illness Narrative [facility] [address] [place] [address] Patient: Robyn Rahman Sex: female : 1970 Age: 53 y.o. 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 WORKER 03/30/2024 Robyn Rahman is here for a(n) [...] Patient December-Jan Thoracic spine Physical Therapy at [facility] with continued HEP 3 times [...] 85-90% relief pre-proc pain 10/0906/20/2023 left L 06/03 07/05 radiofrequency ablations with 85%-90% relief 03/12/24 T [...] 12/05/2017 Performed by Shailesh Vasques MD at [facility] BREAST BIOPSY Left 2003 BENIGN EXCISIONAL BUNIONECTOMY Bilateral CARPAL TUNNEL RELEASE Right COLONOSCOPY N/A 03/12/2019 Performed by Reginald South MD at [facility] DEROTATION ARTHROPLASTY Right 10/09/2023 Performed by CHERI HernandezM at [facility] ECTOPIC SURGERY ENDOSCOPIC RESECTION [place] BULLOSA NASAL Left 09/19/2022 Performed by Ravi Jimenez MD PhD at [facility] EXCISION CYST HEAD/NECK Right 06/14/2021 Performed by Ravi Jimenez MD PhD at [facility] INJECTION BLOCK EPIDURAL CAUDAL STEROID N/A 03/07/2023 Performed by Shailesh Vasques MD at [facility] INJECTION BLOCK EPIDURAL CAUDAL STEROID N/A 06/14/2022 Performed by Shailesh Vasques MD at [facility] INJECTION BLOCK EPIDURAL CAUDAL STEROID N/A 12/21/2021 Performed by Shailesh Vasques MD at [facility] INJECTION BLOCK EPIDURAL CAUDAL STEROID N/A 10/12/2021 Performed by Shailesh Vasques MD at [facility] INJECTION BLOCK EPIDURAL CAUDAL STEROID N/A 04/13/2021 Performed by Shailesh Vasques MD at [facility] INJECTION BLOCK EPIDURAL CAUDAL STEROID N/A 12/01/2020 Performed by Shailesh Vasques MD at [facility] INJECTION BLOCK EPIDURAL CAUDAL STEROID N/A 06/30/2020 Performed by Shailesh Vasques MD at [facility] INJECTION BLOCK EPIDURAL STEROID THORACIC: T 7 meño N/A 03/12/2024 Performed by Shailesh Vasques MD at [facility] INJECTION BLOCK NERVE KNEE right genicular Right 10/27/2020 Performed by Shailesh Vasques MD at [facility] INJECTION BLOCK NERVE MEDIAL BRANCH: bilat L 1/2 2/3 Bilateral 08/17/2021 Performed by Shailesh Vasques MD at [facility] INJECTION BLOCK NERVE MEDIAL BRANCH: bilat L 1/2 2/3 Bilateral 12/29/2020 Performed by Shailesh Vasques MD at [facility] INJECTION BURSA LARGE JOINT: left 1st CMC Left 07/19/2022 Performed by Shailesh Vasques MD at [facility] INJECTION BURSA LARGE JOINT: left hip Left 01/31/2023 Performed by Shailesh Vasques MD at [facility] INJECTION BURSA LARGE JOINT: left hip Left 04/05/2022 Performed by Shailesh Vasques MD at [facility] INJECTION BURSA LARGE JOINT: left hip Left 09/14/2021 Performed by Shailesh Vasques MD at [facility] INJECTION BURSA LARGE JOINT: left hip Left 06/08/2021 Performed by Shailesh Vasques MD at [facility] INJECTION BURSA LARGE JOINT: left hip Left 08/11/2020 Performed by Shailesh Vasques MD at [facility] INJECTION BURSA SMALL JOINT Bilat 1st CMC Bilateral 01/30/2024 Performed by Shailesh Vasques MD at [facility] INJECTION BURSA SMALL JOINT Left 1st CMC Left 08/08/2023 Performed by Shailesh Vasques MD at [facility] INJECTION BURSA SMALL JOINT Left 1st CMC Left 04/11/2023 Performed by Shailesh Vasques MD at [facility] INJECTION BURSA SMALL JOINT left 1st cmc Left 09/22/2020 Performed by Shailesh Vasques MD at [facility] INJECTION CAUDAL EPIDURAL WITH CATHETER, STEROID N/A 01/28/2020 Performed by Shailesh Vasques MD at [facility] INJECTION CAUDAL EPIDURAL WITH CATHETER, STEROID N/A 10/15/2019 Performed by Shailesh Vasques MD at [facility] INJECTION CAUDAL EPIDURAL WITH CATHETER, STEROID N/A 03/19/2019 Performed by Shailesh Vasques MD at [facility] INJECTION CAUDAL EPIDURAL WITH CATHETER, STEROID N/A 12/21/2018 Performed by Shailesh Vasques MD at [facility] INJECTION CAUDAL EPIDURAL WITH CATHETER, STEROID N/A 09/14/2018 Performed by Shailesh Vasques MD at [facility] INJECTION CAUDAL EPIDURAL WITH CATHETER, STEROID N/A 08/14/2018 Performed by Shailesh Vasques MD at [facility] LARGE JOINT BURSA: left hip Left 02/25/2020 Performed by Shailesh Vasques MD at [facility] INJECTION LARGE JOINT BURSA: left hip Left 01/29/2019 Performed by Shailesh Vasques MD at [facility] LARGE JOINT BURSA: right knee Right 05/05/2020 Performed by Shailesh Vasques MD at [facility] BRANCH NERVE BLOCK Bilateral L 4/5, 5/ Bilateral 11/14/2017 Performed by Shailesh Vasques MD at [facility] INJECTION SI JOINT LEFT Left 09/19/2017 Performed by Shailesh Vasques MD at [facility] Left sacroiliac joint injection x1 Left 08/29/2017 Performed by Shailesh Vasques MD at [facility] OSTEOTOMY SUNNY METATARSAL Right 10/09/2023 Performed by Aubrey Anders DPM at [facility] RADIO FREQUENCY ABLATION Left SI joint Left 10/10/2017 Performed by Shailesh Vasques MD at [facility] RADIO FREQUENCY ABLATION: left SI Left 06/19/2018 Performed by Shailesh Vasques MD at [facility] RADIOFREQUENCY ABLATION SPINAL: right L 1/2 2/3 Right 02/15/2022 Performed by Shailesh Vasques MD at [facility] RADIOFREQUENCY ABLATION SPINAL: left L 1/2 2/3 Left 02/01/2022 Performed by Shailesh Vasques MD at [facility] RADIOFREQUENCY ABLATION SPINAL: left L 1/2, 2/3 Left 06/20/2023 Performed by Shailesh Vasques MD at [facility] RADIOFREQUENCY ABLATION SPINAL: right L 1/2, 2/3 Right 05/23/2023 Performed by Shailesh Vasques MD at [facility] RADIOFREQUENCY ABLATION SPINAL: left L45 51rfa Left 01/23/2018 Performed by Shailesh Vasques MD at [facility] RADIOFREQUENCY ABLATION SPINAL: right L45 51rfa Right 01/12/2018 Performed by Shailesh Vasques MD at [facility] RELEASE CARPAL TUNNEL Left 12/08/2017 Performed by Mat Santiago DO at [facility] RESECTION SUBMUCOSAL NASAL Bilateral 09/19/2022 Performed by Ravi Jimenez MD PhD at [facility] SEPTOPLASTY Bilateral 09/19/2022 Performed by Ravi Jimenez MD PhD at [facility] TENOTOMY TENDON SINGLE TOE Right 10/09/2023 Performed by CHERI HernandezM at [facility] Allergies Allergen Reactions Bactrim [Sulfamethoxazole-Trimethoprim] [...] Lovell 04/01/24 [id number] documented in this encounter [facility] 03-29-2024 History of Presen t illness Narrative General Surgery H&P Patient's Name/Date of : Robyn Rahman / 1970 (53 y.o.) Reason for consult: Diagnosis Plan 1. Recurrent biliary colic Ambulatory referral to General Surgery Robyn Rahman is a 53 y.o. female presents with chief complaint of Cholelithiasis (Patient has had abdominal pain for over a week . Was seen at [facility] ER last week. Scan showed gall stones. [...] HISTORY: Past Medical History: Diagnosis Date Anxiety 2019 Arthritis Asthma ([facility]) 2021 Depression (CMS/HCC) Hypertension (CMS/HCC) Menopausal symptoms Personal history of other medical [...] Tobacco Use: High Risk (03/12/2024) Received from [facility] Patient History Smoking Tobacco Use: Some Days Smokeless Tobacco Use: Never Passive Exposure: Not on file Alcohol Use: Not on file Depression: Not at risk (06/27/2021) Received from [facility], [facility] PHQ-2 Total Score: 0 Physical Activity: Not [...] Teofilo Fuentes DO documented in this encounter [facility] 08-21-2023 History of Presen t illness Narrative [facility] [address] [place] [address] Patient: Robyn Rahman Sex: female : 1970 Age: 52 y.o. 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 APRN-DEXTER 08/21/2023 Robyn Rahman is here for a(n) post procedure follow up 08/08/2023 Left CMC with 60-70% initial relief and 40% lasting relief. . . Date of onset of pain: few years , pain has lasted greater than 3 months. Pain scale before treatment: /10 Percentage of relief after and duration: 40% lasting relief. Pain scale after treatment: 08/09 Chief Complaint Patient presents with Back Pain Hand Pain HPI: PT/HEP 09/2017 w/min relief (@6sessions) for back Back: 12/01/20 Caudal MEÑO with 65% relief 06/14/2022 caudal MEÑO with 90% relief . 12/29/20 [...] 12/05/2017 Performed by Shailesh Vasques MD at [facility] BREAST BIOPSY Left 2003 BENIGN EXCISIONAL BUNIONECTOMY Bilateral CARPAL TUNNEL RELEASE Right COLONOSCOPY N/A 03/12/2019 Performed by Reginald South MD at [facility] ECTOPIC SURGERY ENDOSCOPIC RESECTION [place] NASAL Left 09/19/2022 Performed by Ravi Jimenez MD PhD at [facility] EXCISION CYST HEAD/NECK Right 06/14/2021 Performed by Ravi Jimenez MD PhD at [facility] INJECTION BLOCK EPIDURAL CAUDAL STEROID N/A 03/07/2023 Performed by Shailesh Vasques MD at [facility] EPIDURAL CAUDAL STEROID N/A 06/14/2022 Performed by Shailesh Vasques MD at [facility] INJECTION BLOCK EPIDURAL CAUDAL STEROID N/A 12/21/2021 Performed by Shailesh Vasques MD at [facility] EPIDURAL CAUDAL STEROID N/A 10/12/2021 Performed by Shailesh Vasques MD at [facility] EPIDURAL CAUDAL STEROID N/A 04/13/2021 Performed by Shailesh Vasques MD at [facility] EPIDURAL CAUDAL STEROID N/A 12/01/2020 Performed by Shailesh Vasques MD at [facility] EPIDURAL CAUDAL STEROID N/A 06/30/2020 Performed by Shailesh Vasques MD at [facility] INJECTION BLOCK NERVE KNEE right genicular Right 10/27/2020 Performed by Shailseh Vasques MD at [facility] NERVE MEDIAL BRANCH: bilat L 1/2 2/3 Bilateral 08/17/2021 Performed by Shailesh Vasques MD at [facility] NERVE MEDIAL BRANCH: bilat L 1/2 2/3 Bilateral 12/29/2020 Performed by Shailesh Vasques MD at [facility] BURSA LARGE JOINT: left 1st CMC Left 07/19/2022 Performed by Shailesh Vasques MD at [facility] BURSA LARGE JOINT: left hip Left 01/31/2023 Performed by Shailesh Vasques MD at [facility] BURSA LARGE JOINT: left hip Left 04/05/2022 Performed by Shailesh Vasques MD at [facility] BURSA LARGE JOINT: left hip Left 09/14/2021 Performed by Shailesh Vasques MD at [facility] BURSA LARGE JOINT: left hip Left 06/08/2021 Performed by Shailesh Vasques MD at [facility] BURSA LARGE JOINT: left hip Left 08/11/2020 Performed by Shailesh Vasques MD at [facility]URSA SMALL JOINT Left 1st CMC Left 08/08/2023 Performed by Shailesh Vasques MD at [facility] BURSA SMALL JOINT Left 1st CMC Left 04/11/2023 Performed by Shailesh Vasques MD at [facility]URSA SMALL JOINT left 1st cmc Left 09/22/2020 Performed by Shailesh Vasques MD at [facility] CAUDAL EPIDURAL WITH CATHETER, STEROID N/A 01/28/2020 Performed by Shailesh Vasques MD at [facility] CAUDAL EPIDURAL WITH CATHETER, STEROID N/A 10/15/2019 Performed by Shailesh Vasques MD at [facility] CAUDAL EPIDURAL WITH CATHETER, STEROID N/A 03/19/2019 Performed by Shailesh Vasques MD at [facility] CAUDAL EPIDURAL WITH CATHETER, STEROID N/A 12/21/2018 Performed by Shailesh Vasques MD at [facility] CAUDAL EPIDURAL WITH CATHETER, STEROID N/A 09/14/2018 Performed by Shailesh Vasques MD at [facility] CAUDAL EPIDURAL WITH CATHETER, STEROID N/A 08/14/2018 Performed by Shailesh Vasques MD at [facility] LARGE JOINT BURSA: left hip Left 02/25/2020 Performed by Shailesh Vasques MD at [facility] INJECTION LARGE JOINT BURSA: left hip Left 01/29/2019 Performed by Shailesh Vasques MD at [facility] INJECTION LARGE JOINT BURSA: right knee Right 05/05/2020 Performed by Shailesh Vasques MD at [facility] INJECTION MEDIAL BRANCH NERVE BLOCK Bilateral L 4/5, 5/1 Bilateral 11/14/2017 Performed by Shailesh Vasques MD at [facility] INJECTION SI JOINT LEFT Left 09/19/2017 Performed by Shailesh Vasques MD at [facility] Left sacroiliac joint injection x1 Left 08/29/2017 Performed by Shailesh Vasques MD at [facility] RADIO FREQUENCY ABLATION Left SI joint Left 10/10/2017 Performed by Shailesh Vasques MD at [facility] RADIO FREQUENCY ABLATION: left SI Left 06/19/2018 Performed by Shailesh Vasques MD at [facility] RADIOFREQUENCY ABLATION SPINAL: right L 1/2 2/3 Right 02/15/2022 Performed by Shailesh Vasques MD at [facility] RADIOFREQUENCY ABLATION SPINAL: left L 1/2 2/3 Left 02/01/2022 Performed by Shailesh Vasques MD at [facility] RADIOFREQUENCY ABLATION SPINAL: left L 1/2, 2/3 Left 06/20/2023 Performed by Shailesh Vasques MD at [facility] RADIOFREQUENCY ABLATION SPINAL: right L 1/2, 2/3 Right 05/23/2023 Performed by Shailesh Vasques MD at [facility] RADIOFREQUENCY ABLATION SPINAL: left L45 51rfa Left 01/23/2018 Performed by Shailesh Vasques MD at [facility] RADIOFREQUENCY ABLATION SPINAL: right L45 51rfa Right 01/12/2018 Performed by Shailesh Vasques MD at [facility] RELEASE CARPAL TUNNEL Left 12/08/2017 Performed by Mat Santiago DO at [facility] RESECTION SUBMUCOSAL NASAL Bilateral 09/19/2022 Performed by Ravi Jimenez MD PhD at [facility] SEPTOPLASTY Bilateral 09/19/2022 Performed by Ravi Jimenez MD PhD at [facility] Allergies Allergen Reactions Bactrim [Sulfamethoxazole-Trimethoprim] [...] Lovell 08/21/23 1300 documented in this encounter [facility] 07-17-2023 History of Presen t illness Narrative [facility] [address] [place] [address] Patient: Robyn Rahman Sex: female : 1970 Age: 52 y.o. 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 WORKER 07/17/2023 Robyn Rahman is here for a(n) [...] 12/05/2017 Performed by Shailesh Vasques MD at [facility] BRE[facility] BIOPSY Left 2003 BENIGN EXCISIONAL BUNIONECTOMY Bilateral CARPAL TUNNEL RELEASE Right COLONOSCOPY N/A 03/12/2019 Performed by Reginald South MD at [facility] ECTOPIC SURGERY ENDOSCOPIC RESECTION [place] NASAL Left 09/19/2022 Performed by Ravi Jimenez MD PhD at [facility] CYST HEAD/NECK Right 06/14/2021 Performed by Ravi Jimenez MD PhD at [facility] IN[facility]CTION BLOCK EPIDURAL CAUDAL STEROID N/A 03/07/2023 Performed by Shailesh Vasques MD at [facility] EPIDURAL CAUDAL STEROID N/A 06/14/2022 Performed by Shailesh Vasques MD at [facility] EPIDURAL CAUDAL STEROID N/A 12/21/2021 Performed by Shailesh Vasques MD at [facility] EPIDURAL CAUDAL STEROID N/A 10/12/2021 Performed by Shailesh Vasques MD at [facility] EPIDURAL CAUDAL STEROID N/A 04/13/2021 Performed by Shailesh Vasques MD at [facility] EPIDURAL CAUDAL STEROID N/A 12/01/2020 Performed by Shailesh Vasques MD at [facility] EPIDURAL CAUDAL STEROID N/A 06/30/2020 Performed by Shailesh Vasques MD at [facility] NERVE KNEE right genicular Right 10/27/2020 Performed by Shailesh Vasques MD at [facility] NERVE MEDIAL BRANCH: bilat L 1/2 2/3 Bilateral 08/17/2021 Performed by Shailesh Vasques MD at [facility] NERVE MEDIAL BRANCH: bilat L 1/2 2/3 Bilateral 12/29/2020 Performed by Shailesh Vasques MD at [facility] BURSA LARGE JOINT: left 1st CMC Left 07/19/2022 Performed by Shailesh Vasques MD at [facility] BURSA LARGE JOINT: left hip Left 01/31/2023 Performed by Shailesh Vasques MD at [facility] BURSA LARGE JOINT: left hip Left 04/05/2022 Performed by Shailesh Vasques MD at [facility] BURSA LARGE JOINT: left hip Left 09/14/2021 Performed by Shailesh Vasques MD at [facility] BURSA LARGE JOINT: left hip Left 06/08/2021 Performed by Shailesh Vasques MD at [facility] BURSA LARGE JOINT: left hip Left 08/11/2020 Performed by Shialesh Vasques MD at [facility] BURSA SMALL JOINT Left 1st CMC Left 04/11/2023 Performed by Shailesh Vasques MD at [facility] INJECTION BURSA SMALL JOINT left 1st cmc Left 09/22/2020 Performed by Shailesh Vasques MD at [facility] CAUDAL EPIDURAL WITH CATHETER, STEROID N/A 01/28/2020 Performed by Shailesh Vasques MD at [facility] CAUDAL EPIDURAL WITH CATHETER, STEROID N/A 10/15/2019 Performed by Shailesh Vasques MD at [facility] CAUDAL EPIDURAL WITH CATHETER, STEROID N/A 03/19/2019 Performed by Shailesh Vasques MD at [facility] IN[facility] CAUDAL EPIDURAL WITH CATHETER, STEROID N/A 12/21/2018 Performed by Shailesh Vasques MD at [facility] CAUDAL EPIDURAL WITH CATHETER, STEROID N/A 09/14/2018 Performed by Shailesh Vasques MD at [facility] CAUDAL EPIDURAL WITH CATHETER, STEROID N/A 08/14/2018 Performed by Shailesh Vasques MD at [facility] INJECTION LARGE JOINT BURSA: left hip Left 02/25/2020 Performed by Shailesh Vasques MD at [facility] LARGE JOINT BURSA: left hip Left 01/29/2019 Performed by Shailesh Vasques MD at [facility] LARGE JOINT BURSA: right knee Right 05/05/2020 Performed by Shailesh Vasques MD at [facility] INJECTION MEDIAL BRANCH NERVE BLOCK Bilateral L 4/5, / Bilateral 11/14/2017 Performed by Shailesh Vasques MD at [facility] INJECTION SI JOINT LEFT Left 09/19/2017 Performed by Shailesh Vasques MD at [facility] Left sacroiliac joint injection x1 Left 08/29/2017 Performed by Shailesh Vasques MD at [facility] RADIO FREQUENCY ABLATION Left SI joint Left 10/10/2017 Performed by Shailesh Vasques MD at [facility] RADIO FREQUENCY ABLATION: left SI Left 06/19/2018 Performed by Shailesh Vasques MD at [facility] RADIOFREQUENCY ABLATION SPINAL: right L 1/2 2/3 Right 02/15/2022 Performed by Shailesh Vasques MD at [facility] RADIOFREQUENCY ABLATION SPINAL: left L 1/2 2/3 Left 02/01/2022 Performed by Shailesh Vasques MD at [facility] RADIOFREQUENCY ABLATION SPINAL: left L 1/2, 2/3 Left 06/20/2023 Performed by Shailesh Vasques MD at [facility] RADIOFREQUENCY ABLATION SPINAL: right L 1/2, 2/3 Right 05/23/2023 Performed by Shailesh Vasques MD at [facility] RADIOFREQUENCY ABLATION SPINAL: left L45 51rfa Left 01/23/2018 Performed by Shailesh Vasques MD at [facility] RADIOFREQUENCY ABLATION SPINAL: right L45 51rfa Right 01/12/2018 Performed by Shailesh Vasques MD at [facility] RELEASE CARPAL TUNNEL Left 12/08/2017 Performed by Mat Santiago DO at [facility] RESECTION SUBMUCOSAL NASAL Bilateral 09/19/2022 Performed by Ravi Jimenez MD PhD at [facility] SEPTOPLASTY Bilateral 09/19/2022 Performed by Ravi Jimenez MD PhD at [facility] Allergies Allergen Reactions Bactrim [Sulfamethoxazole-Trimethoprim] [...] Lovell 07/17/23 1205 documented in this encounter [facility] 07-17-2023 Instructions Samantha Schulz CNA - 07/17/2023 [...] normal. documented in this encounter [facility] Evaluation note Diagnosis 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- Primary 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- Primary 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 documented in this encounter [facility] System[facility] note* Diagnosis Lumbar spondylosis- Primary Lumbosacral spondylosis without myelopathy documented in this encounter [facility] note* Diagnosis Recurrent biliary colic Calculus of gallbladder without mention of cholecystitis or obstruction documented in this encounter [facility] HealthcareEvaluation note* Diagnosis Lumbar spondylosis- Primary Lumbosacral spondylosis without myelopathy documented in this encounter [facility] System[facility]* Diagnosis S/P foot surgery- Primary Other postprocedural status Right foot pain Pain in soft tissues of limb documented in this encounter [facility] HealthcareEvaluation noteNo assessment information availableChildren[facility] Work Phone: Evaluation note* Diagnosis Status post cholecystectomy- Primary Other acquired absence of organ documented in this encounter [facility] HealthcareEvaluation note* Diagnosis Cystocele with uterine prolapse- Primary Urinary, incontinence, stress female Female stress incontinence documented in this encounter [facility] SystemInstructionsNot on filedocumented in this encounter [facility]Not on filedocumented in this encounter [facility] [employer] SystemInstructionsNot on filedocumented in this encounter [facility] Summary Purpose Family History No Family History Records FoundNo Family History Records FoundNo Family History Records FoundNo Family History Records FoundNo Family History Records FoundNo Family History Records Found Advance Directives No Advanced Directives Records Found Advance Directive Response Recorded Date/ Time Advance Directives No April 08, 2024 12:39pm Reason for Referral Specialty Diagnoses / Procedures Referred By Sen wilkes Referred To Contact Diagnoses 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 Procedures Case request operating room: INJECTION BUR[facility] LARGE JOINT: left CMC Rachel Mckeon, ILDA [address] [place] [address] Referral ID Status Reason Start Date Expiration Date V isits Requested Visits Authorized [id number] Pending Review 07/17/2023 07/16/2024 1 1 Additional Source Comments INFORMATION SOURCE (unrecogn ized section and content) DATE CREATED AUTHOR 08/11/2022 [facility] DATE CREATED AUTHOR AUTHOR'S ORGANIZ ATION 11/19/2023 [facility] DATE CREATED AUTHOR AUTHOR'S ORGANIZ ATION 04/01/2024 [facility] DATE CREATED AUTHOR AUTHOR'S ORGANIZ ATION 04/16/2024 [facility] DATE CREATED AUTHOR AUTHOR'S ORGANIZ ATION 05/03/2024 [facility] EPIC DATE CREATED AUTHOR AUTHOR'S ORGANIZ ATION 05/13/2024 [facility] Reason for Visit (unrecogniz ed section and content) Reason Comments Back Pain Reason Comments Back Pain Hand Pain Reason Comments Cholelithiasis Patient has had abdo giovanna pain for over a week . Was seen at [facility] ER last week. Scan showed gall stones. Specialty Diagnoses / Procedures Referred By eSn wilkes Referred To Contact General Surgery Diagnoses Calculus of gallbladder with acute on chronic cholecystitis without obstruction Procedures [place] OFFICE/OUTPATIENT NEW HIGH MDM 60 MINUTES Saurabh Fuentes DO [address] [facility] [address] [place] [address] Phone: tel: fax: Saurabh Fuentes DO [address] [facility] [address] [place] [address] Phone: tel: fax: Referral ID Status Reason Start Date Expiration Date V isits Requested Visits Authorized [id number] Closed Specialty Services Required 03/23/2024 09/19/2024 1 1 Reason Comments Back Pain Reason Comments Post-op Established pt prese nts today for POV#4, DOS: 10/09/23, right foot. Pt relates pinky toe will become swollen and red sometimes, but otherwise doing well. Reason Onset Date Comments Advice Only 04/19/2024 Medical Records Request for Social Security Reason Comments Post-op Pt presents post op lap cholecystectomy on 04/13. She states that she is doing well, denies any pain. She states that her incisions are healing well. Care Teams (unrecognized sec tion and content) Occupational Health And Safety Officer Relationship Specialty Start Date End Date Pastora Ledesma APRN-STRUCTURAL WORKER [address] [place], [place] [id number] PCP - General Family Medicine 12/10/18 Occupational Health And Safety Officer Relationship Specialty Start Date End Date Pastora Ledesma APRN-STRUCTURAL WORKER [address] [place] [address] PCP - General Family Medicine 12/10/18 Occupational Health And Safety Officer Relationship Specialty Start Date End Date Sandra Gonzalez MD [address] [place] [address] PCP - General Pediatrics 08/12/23 Pastora Ledesma MD [address] [place] [address] Referring Physician Family Medicine 08/12/23 Occupational Health And Safety Officer Relationship Specialty Start Date End Date Sandra Gonzalez MD [address] [place] [address] PCP - General Pediatrics 08/12/23 Pastora Ledesma MD [address] [place] [address] Referring Physician Family Medicine 08/12/23 Occupational Health And Safety Officer Relationship Specialty Start Date End Date Pastora Ledesma, CERTIFIED SURGICAL TECH/FIRST ASSISTANT-STRUCTURAL WORKER [address] [place] [address] PCP - General Family Medicine 12/10/18 Occupational Health And Safety Officer Relationship Specialty Start Date End Date Sandra Gonzalez MD [address] [place] [address] PCP - General Pediatrics 08/12/23 Pastora Ledesma MD [address] [place] [address] Referring Physician Family Medicine 08/12/23 Team Status: Active Member Role Status Dates Morris Meadows DO Attending Provider Active Sta rt: March 22, 2024 Team Status: Inactive Member Role Status Dates Saurabh Fuentes DO Attending Provider Active Star t: April 13, 2024 End: April 13, 2024 Occupational Health And Safety Officer Relationship Specialty Start Date End Date Sandra Gonzalez MD [address] [place] [address] PCP - General Pediatrics 08/12/23 Pastora Ledesma MD [address] [place] [address] Referring Physician Family Medicine 08/12/23 Goals (unrecognized section and content) Goals may be documented in a n alternate section FOR RECORDS PERTAINING TO PATIENTS WHO ARE [...] BE BASED ON THE PRIMARY CLINICAL RECORDS. Lust have it! [facility]. provides no warranty or guarantee of the accuracy or completeness of information in this document.
[2024-05-30 22:06] VITALS: BP 132/92; PULSE 85; TEMP 36.8; O2SAT 94; BMI 25.2
--- NOTE | 2024-05-30 22:17 | XR_ITS ---
The [address] [address] Patient Name: MIRTA HITCHCOCK MRN: [id number] date: 1970 Sex: F Assigned Patient Location: ER Current Patient Location: ER Accession/Order Number: [id number] Exam Date: 05/30/2024 22:27 Report Date: 05/30/2024 23:06 At the request of: MIGUEL A MAURO Procedure: XR forearm LT 2V EXAM: XR forearm LT 2V HISTORY: The patient is a 53-year-old female, fall COMPARISON: None. FINDINGS: The left radius and ulna are radiographically negative with no evidence of fracture, cortical lucencies, or other osseous abnormalities. The elbow joint is grossly maintained. XR/XR forearm LT 2V IMPRESSION: Negative. Electronically authenticated by: COURTNEY HARE Date: 05/30/2024 23:06
--- NOTE | 2024-05-30 22:17 | XR_ITS ---
The [address] [address] Patient Name: MIRTA HITCHCOCK MRN: [id number] date: 1970 Sex: F Assigned Patient Location: ER Current Patient Location: ER Accession/Order Number: [id number] Exam Date: 05/30/2024 22:27 Report Date: 05/30/2024 23:05 At the request of: MIGUEL A MAURO Procedure: XR wrist LT min 3V EXAM: XR wrist LT min 3V HISTORY: The patient is a 53-year-old female, fall COMPARISON: None. XR/XR wrist LT min 3V IMPRESSION: No fractures or dislocations are seen within or around the left wrist. There is osteoarthritic narrowing of the thumb carpometacarpal joint. The widths and alignment of the other joints are maintained. Electronically authenticated by: COURTNEY HARE Date: 05/30/2024 23:05
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
[2024-05-30] MEDS: IBUPROFEN 400 MG TABLET 800 MG PO (23:36)
== END 2024-05-30 23:45 | disposition home or self-care (01) ==
PROVIDERS: Emergency Provider Emergency Medicine
DX: S63.502A Unspecified sprain of left wrist, initial encounter (principal); Z98.51 Tubal ligation status; F17.200 Nicotine dependence, unspecified, uncomplicated; Y08.89XA Assault by other specified means, initial encounter
CPT/HCPCS: 73090; 73110; 99283